=== PATIENT | male | born 1955 | race Caucasian/White ===

== ENCOUNTER 2021-07-18 20:04 | Inpatient (IN) | payer BC ==
[2021-07-18] MEDS ORDERED: Sodium Chloride 0.9% 10 ML Syringe FLUSH PRN (20:23)
--- NOTE | 2021-07-18 20:28 | EDM.PDOC ---
ED HPI GENERAL MEDICAL PROBLEM - General Chief Complaint: Respiratory Problem Stated Complaint: SOB Time Seen by Provider: 07/18/21 20:11 Source of Information: Reports: Patient, RN Notes Reviewed History Limitations: Reports: No Limitations - History of Present Illness INITIAL COMMENTS - FREE TEXT/NARRATIVE: Patient is a 66-year-old male who presents to the ER for evaluation of his shortness of breath and ongoing COVID-19 symptoms. Patient is about day 10 for being symptomatic. He was diagnosed on July 15, 2021 at our clinic, sent home with dexamethasone and an inhaler. Patient does have blood pressure issues, is diabetic, and obese as well. He became concerned today because he had increasing shortness of breath, so he comes to the ER for evaluation. The patient's O2 sats at time of triage were 75% on room air, the patient was rapidly placed on oxygen, and he is now on 6 L via nasal cannula and O2 sats have improved to roughly 87%. Patient's had some mild elevated temperatures, but no major fevers. States he feels somewhat breathless, and was just feeling somewhat fatigued. Patient was not vaccinated for COVID-19. - Related Data Allergies Allergy/AdvReac Type Severity Reaction Status Date / Time levofloxacin [From Levaquin] Allergy Other Verified 07/18/21 20:15 antibiotic unknown name Allergy Anxiety Uncoded 07/18/21 20:15 Home Meds: Home Meds Amoxicillin/Clavulanate K [Augmentin 500 MG] 1 tab PO Q12H #16 tab 01/25/15 [Rx] Levothyroxine 125 mcg PO ACBREAKFAST 01/25/15 [History] Nebivolol [Bystolic] 2.5 mg PO DAILY 01/25/15 [History] Omeprazole [Prilosec] 40 mg PO 01/25/15 [History] Pioglitazone HCl [Actos] 15 mg PO 01/25/15 [History] Valsartan 160 mg PO 01/25/15 [History] atorvaSTATin [Lipitor] 20 mg PO ONETIME 01/25/15 [History] Past Medical History Cardiovascular History: Reports: High Cholesterol, Hypertension Respiratory History: Reports: Sleep Apnea Endocrine/Metabolic History: Reports: Diabetes, Type II - Infectious Disease History Infectious Disease History: Reports: Novel Coronavirus - Past Surgical History Musculoskeletal Surgical History: Reports: Arthroscopic Knee, Shoulder Surgery Social & Family History - Tobacco Use Tobacco Use Status *Q: Never Tobacco User ED ROS GENERAL - Review of Systems Review Of Systems: Comprehensive ROS is negative, except as noted in HPI. ED EXAM, GENERAL - Physical Exam Exam: See Below Exam Limited By: No Limitations General Appearance: Alert, WD/WN, No Apparent Distress Respiratory/Chest: No Respiratory Distress, No Accessory Muscle Use, Chest Non- Tender, Respiratory Distress (very slight distress noted), Decreased Breath Sounds (diffuse bilaterally) Cardiovascular: Normal Peripheral Pulses, Regular Rate, Rhythm, No Edema GI/Abdominal: Normal Bowel Sounds, Soft, Non-Tender, No Distention, No Mass Extremities: Normal Inspection, Normal Capillary Refill Neurological: Alert, Oriented, Normal Cognition, No Motor/Sensory Deficits Psychiatric: Normal Affect, Normal Mood Skin Exam: Warm, Dry, Intact, Normal Color, No Rash #1 Interpretation EKG Date: 07/18/21 Time: 20:28 Rhythm: NSR Rate (Beats/Min): [address]: Normal P-Wave: Present QRS: Normal ST-T: Normal QT: Normal EKG Interpretation Comments: No obvious ischemia or acute ST changes noted, reviewed by myself and Dr. Aguiar. Course - Vital Signs Last Recorded V/S: Last Vital Signs Temp 99.0 F 07/18/21 20:11 Pulse 95 07/18/21 20:11 Resp 17 07/18/21 20:11 BP 163/81 H 07/18/21 20:11 Pulse Ox 85 L 07/18/21 20:35 - Orders/Labs/Meds Orders: Active Orders 24 hr Category Date Time Status Oxygen Therapy, ED [RC] ASDIRECTED Care 07/18/21 20:39 Ordered Peripheral IV Care [RC] . DIRECTED Care 07/18/21 20:23 Ordered Chest 1V Frontal [CR] Stat Exams 07/18/21 20:20 Ordered BLOOD CULTURE [MREF] Stat Lab 07/18/21 21:35 Ordered BLOOD CULTURE [MREF] Stat Lab 07/18/21 21:35 Ordered LACTIC ACID [CHEM] Stat Lab 07/18/21 21:35 Ordered Baricitinib [Olumiant] Med 07/18/21 21:45 Ordered 4 mg PO DAILY Sodium Chloride 0.9% [Saline Flush] Med 07/18/21 20:23 Ordered 10 ml FLUSH ASDIRECTED PRN cefTRIAXone [Rocephin] 2 gm Med 07/18/21 21:40 Ordered Sodium Chloride 0.9% [Normal Saline] 100 ml IV ONETIME Blood Culture x2 Reflex Set [OM.PC] Stat Oth 07/18/21 21:35 Ordered Peripheral IV Insertion Adult [OM.PC] Routine Oth 07/18/21 20:23 Ordered Medication Orders Ceftriaxone Sodium 2 gm/ (Sodium Chloride) 100 mls @ 200 mls/hr IV ONETIME ONE Stop: 07/18/21 22:09 Sodium Chloride (Sodium Chloride 0.9% 10 Ml Syringe) 10 ml FLUSH ASDIRECTED PRN PRN Reason: Keep Vein Open Last Admin: 07/18/21 20:36 Dose: 10 ml Documented by: MISSY Labs: Laboratory Tests 07/18/21 07/18/21 07/18/21 Range/Units 20:35 20:38 20:38 WBC 11.31 H (4.23-9.07) K/mm3 RBC 4.95 (4.63-6.08) M/mm3 Hgb 15.3 (13.7-17.5) gm/dl Hct 46.2 (40.1-51.0) % MCV 93.3 H (79.0-92.2) fl MCH 30.9 (25.7-32.2) pg MCHC 33.1 (32.2-35.5) g/dl RDW Std Deviation 47.3 H (35.1-43.9) fL Plt Count 225 (163-337) K/mm3 MPV 9.2 L (9.4-12.3) fl Neut % (Auto) 85.6 H (34.0-67.9) % Lymph % (Auto) 5.5 L (21.8-53.1) % Cloud % (Auto) 7.7 (5.3-12.2) % Eos % (Auto) 0 L (0.8-7.0) Baso % (Auto) 0.1 (0.1-1.2) % Neut # (Auto) 9.69 H (1.78-5.38) K/mm3 Lymph # (Auto) 0.62 L (1.32-3.57) K/mm3 Cloud # (Auto) 0.87 H (0.30-0.82) K/mm3 Eos # (Auto) 0.00 L (0.04-0.54) K/mm3 Baso # (Auto) 0.01 (0.01-0.08) K/mm3 PT (9.7-12.0) SECONDS INR APTT (21.7-31.4) SECONDS D-Dimer, Quantitative (0.19-0.50) mg/L Puncture Site Lt radial ABG pH 7.39 (7.35-7.45) ABG pCO2 38.3 (35.0-45.0) mmHg ABG pO2 43.0 L (80.0-100.0) mmHg ABG HCO3 22.9 (22.0-26.0) meq/L ABG O2 Saturation 72.6 L (96.0-97.0) % ABG Base Excess -1.2 (-2-2.0) Horace Test Positive O2 Delivery Device Nasal cannula Oxygen Flow Rate 6.0 Sodium (136-145) mEq/L Potassium (3.5-5.1) mEq/L Chloride (98-107) mEq/L Carbon Dioxide (21-32) mEq/L Anion Gap (5-15) BUN (7-18) mg/dL Creatinine (0.7-1.3) mg/dL Est Cr Clr Drug Dosing Estimated GFR (MDRD) (>60) mL/min BUN/Creatinine Ratio (14-18) Glucose (70-99) mg/dL Calcium (8.5-10.1) mg/dL Magnesium (1.8-2.4) mg/dL Total Bilirubin (0.2-1.0) mg/dL AST (15-37) U/L ALT (16-63) U/L Alkaline Phosphatase (46-116) U/L Troponin I (0.00-0.056) ng/mL C-Reactive Protein 5.7 H* (<1.0) mg/dL NT-Pro-B Natriuret Pep (0-125) pg/mL Total Protein (6.4-8.2) g/dl Albumin (3.4-5.0) g/dl Globulin gm/dL Albumin/Globulin Ratio (1-2) 07/18/21 07/18/21 07/18/21 Range/Units 20:38 20:38 20:38 WBC (4.23-9.07) K/mm3 RBC (4.63-6.08) M/mm3 Hgb (13.7-17.5) gm/dl Hct (40.1-51.0) % MCV (79.0-92.2) fl MCH (25.7-32.2) pg MCHC (32.2-35.5) g/dl RDW Std Deviation (35.1-43.9) fL Plt Count (163-337) K/mm3 MPV (9.4-12.3) fl Neut % (Auto) (34.0-67.9) % Lymph % (Auto) (21.8-53.1) % Cloud % (Auto) (5.3-12.2) % Eos % (Auto) (0.8-7.0) Baso % (Auto) (0.1-1.2) % Neut # (Auto) (1.78-5.38) K/mm3 Lymph # (Auto) (1.32-3.57) K/mm3 Cloud # (Auto) (0.30-0.82) K/mm3 Eos # (Auto) (0.04-0.54) K/mm3 Baso # (Auto) (0.01-0.08) K/mm3 PT 10.2 (9.7-12.0) SECONDS INR 0.95 APTT 29.2 (21.7-31.4) SECONDS D-Dimer, Quantitative 0.32 (0.19-0.50) mg/L Puncture Site ABG pH (7.35-7.45) ABG pCO2 (35.0-45.0) mmHg ABG pO2 (80.0-100.0) mmHg ABG HCO3 (22.0-26.0) meq/L ABG O2 Saturation (96.0-97.0) % ABG Base Excess (-2-2.0) Horace Test O2 Delivery Device Oxygen Flow Rate Sodium 136 (136-145) mEq/L Potassium 4.5 (3.5-5.1) mEq/L Chloride 102 (98-107) mEq/L Carbon Dioxide 25 (21-32) mEq/L Anion Gap 13.5 (5-15) BUN 25 H (7-18) mg/dL Creatinine 1.7 H (0.7-1.3) mg/dL Est Cr Clr Drug Dosing TNP Estimated GFR (MDRD) 41 (>60) mL/min BUN/Creatinine Ratio 14.7 (14-18) Glucose 177 H (70-99) mg/dL Calcium 8.4 L (8.5-10.1) mg/dL Magnesium 2.2 (1.8-2.4) mg/dL Total Bilirubin 0.5 (0.2-1.0) mg/dL AST 116 H (15-37) U/L ALT 170 H (16-63) U/L Alkaline Phosphatase 94 (46-116) U/L Troponin I < 0.017 (0.00-0.056) ng/mL C-Reactive Protein (<1.0) mg/dL NT-Pro-B Natriuret Pep 130 H (0-125) pg/mL Total Protein 7.3 (6.4-8.2) g/dl Albumin 3.2 L (3.4-5.0) g/dl Globulin 4.1 gm/dL Albumin/Globulin Ratio 0.8 L (1-2) Meds: Medications Generic Name Dose Route Start Last Admin Trade Name Freq PRN Reason Stop Dose Admin Ceftriaxone Sodium 2 gm/ 100 mls @ 200 mls/hr 07/18/21 21:40 Sodium Chloride IV 07/18/21 22:09 ONETIME ONE Sodium Chloride 10 ml 07/18/21 20:23 07/18/21 20:36 Sodium Chloride 0.9% 10 Ml Syringe FLUSH 10 ml ASDIRECTED PRN Administration Keep Vein Open Discontinued Medications Generic Name Dose Route Start Last Admin Trade Name Freq PRN Reason Stop Dose Admin Dexamethasone 6 mg 07/18/21 21:40 Dexamethasone 10 Mg/Ml Sdv IVPUSH 07/18/21 21:41 ONETIME ONE - Re-Assessments/Exams Free Text/Narrative Re-Assessment/Exam: 07/18/21 20:33 Patient presents to the ER for evaluation of his shortness of breath, and jackie oing COVID-19 symptoms. Patient was hypoxic at the time of triage, and was around 75% on room air. He was swiftly placed on oxygen, and was titrated up to 6 L, and we are giving O2 sats of 87%. Patient will likely either need high flow oxygen or BiPAP shortly. I was made aware that we have 2 beds for admission into the hospital at our facility. This gentleman will likely need hospitalization. We will go ahead and get labs, and a chest x-ray for further evaluation, and then get him admitted. 07/18/21 20:38 RT was by, and was made aware of the situation, and she will place the patient on high flow nasal cannula at this time. 07/18/21 20:53 The patient's blood gas did come back, the patient is ventilating at this time appropriately, pH is 7.39, CO2 at 38, PO2 is fairly low at 43. Which states that he is hypoxic but not in respiratory failure at this time. 07/18/21 21:34 The patient's CBC did come back, mildly elevated at 11.3, with 85% neutrophils on the auto differential. Metabolic panel was essentially unremarkable, troponin was undetectably low, CRP elevated at 5.7, D-dimer in normal limits at 0.32. Due to needing hospitalization, I think we will go ahead and get blood cultures due to the elevated white count, which would be suspect overlying pneumonia versus ongoing Covid viral pneumonia as well. Patient's chest x-ray did show pretty severe diffuse patchy infiltrates consistent with severe Covid pneumonia. Official radiology read is still pending. 07/18/21 21:41 I did call and discussed the case with Dr. Abdi, and he does accept the patient for admission, he states to place the patient on IV dexamethasone, give him Rocephin, and place him on baricitinib for ongoing management. As the patient will likely necessitate high flow oxygen when he gets to the floor. Departure - Departure Time of Disposition: 21:42 Disposition: Admitted As Inpatient 67 Condition: Serious Clinical Impression: COVID-19, Hypoxia - Discharge Information *PRESCRIPTION DRUG MONITORING PROGRAM REVIEWED*: No *COPY OF PRESCRIPTION DRUG MONITORING REPORT IN PATIENT JUDY: No Referrals: Chad Ordonez MD [Primary Care Provider] - Forms: ED Department Discharge Sepsis Event Note (ED) - Focused Exam Vital Signs: Vital Signs Temp Pulse Resp BP Pulse Ox Pulse Ox 07/18/21 20:35 85 L 07/18/21 20:11 99.0 F 95 17 163/81 H 75 L - My Orders Last 24 Hours: My Active Orders 07/18/21 20:20 Chest 1V Frontal [CR] Stat 09/10/21 20:23 Peripheral IV Care [RC] . DIRECTED Sodium Chloride 0.9% [Saline Flush] 10 ml FLUSH ASDIRECTED PRN Peripheral IV Insertion Adult [OM.PC] Routine 07/18/21 20:39 Oxygen Therapy, ED [RC] ASDIRECTED 07/18/21 21:35 BLOOD CULTURE [MREF] Stat BLOOD CULTURE [MREF] Stat LACTIC ACID [CHEM] Stat Blood Culture x2 Reflex Set [OM.PC] Stat 07/18/21 21:40 cefTRIAXone [Rocephin] 2 gm Sodium Chloride 0.9% [Normal Saline] 100 ml IV ONETIME 07/18/21 21:45 Baricitinib [Olumiant] 4 mg PO DAILY - Assessment/Plan Last 24 Hours: My Active Orders 07/18/21 20:20 Chest 1V Frontal [CR] Stat 07/18/21 20:23 Peripheral IV Care [RC] . DIRECTED Sodium Chloride 0.9% [Saline Flush] 10 ml FLUSH ASDIRECTED PRN Peripheral IV Insertion Adult [OM.PC] Routine 07/18/21 20:39 Oxygen Therapy, ED [RC] ASDIRECTED 07/18/21 21:35 BLOOD CULTURE [MREF] Stat BLOOD CULTURE [MREF] Stat LACTIC ACID [CHEM] Stat Blood Culture x2 Reflex Set [OM.PC] Stat 07/18/21 21:40 cefTRIAXone [Rocephin] 2 gm Sodium Chloride 0.9% [Normal Saline] 100 ml IV ONETIME 07/18/21 21:45 Baricitinib [Olumiant] 4 mg PO DAILY
[2021-07-18] MEDS ORDERED: cefTRIAXone 2 GM in Sodium Chloride 0.9% 100 ML IV ONE (21:40)
[2021-07-18] MEDS ORDERED: Dexamethasone 10 MG/ML SDV IVPUSH ONE (21:40)
--- NOTE | 2021-07-19 08:29 | PCM.HP.2 ---
H&P History of Present Illness - General Date of Service: 07/19/21 Admit Problem/Dx: Admission Diagnosis/Problem Admission Diagnosis/Problem Hypoxia - History of Present Illness Initial Comments - Free Text/Narative: 66-year-old diabetic male presents to the emergency room last night with increasing shortness of breath. He was seen 4 days ago at the clinic and given steroids and an inhaler. Patient progressively worsened and presented today. He does complain of moderate nonproductive cough. Low-grade fevers and shortness of breath. When he arrived at the emergency department his oxygen saturations were 75%. They placed him on 6 L nasal cannula and his saturation only went up to 87%. Patient was then placed on high flow nasal cannula, given dexamethasone, and baricitinib. Initial lab work showed a WBC of 11.3 with a C- reactive protein of 5.7. Estimated GFR is 41 with a creatinine of 1.7 and BUN of 25. proBNP 130. AST elevated 116 ALT 170, total bilirubin normal 0.5, albumin low 3.2. Initial ABG on 6 L showed pure hypoxemic respiratory failure with PO2 of 43. - Related Data Allergies/Adverse Reactions: Allergies Allergy/AdvReac Type Severity Reaction Status Date / Time levofloxacin [From Levaquin] Allergy Other Verified 07/18/21 20:15 antibiotic unknown name Allergy Anxiety Uncoded 07/18/21 23:46 Home Medications: Home Meds Omeprazole [Prilosec] 40 mg PO DAILY 01/25/15 [History] Albuterol Sulfate [Albuterol Sulfate HFA] 1 - 2 puff INH Q4HR PRN 07/19/21 [History] Benzonatate [Tessalon Perle] 100 - 200 mg PO Q8H PRN 07/19/21 [History] Canagliflozin [Invokana] 300 mg PO DAILY 07/19/21 [History] Levothyroxine Sodium [Levo-T] 125 mcg PO DAILY 07/19/21 [History] Rosuvastatin Calcium 20 mg PO DAILY 07/19/21 [History] Telmisartan 40 mg PO DAILY 07/19/21 [History] Travoprost 1 drop EYERT DAILY 07/19/21 [History] allopurinoL [Zyloprim] 50 mg PO DAILY 07/19/21 [History] dilTIAZem HCL [Cartia Xt] 120 mg PO DAILY 07/19/21 [History] methylPREDNISolone [Medrol Dose Pack] 4 mg PO ASDIRECTED 07/19/21 [History] Past Medical History Other HEENT History: Glasses Cardiovascular History: Reports: High Cholesterol, Hypertension Respiratory History: Reports: Sleep Apnea Other Respiratory History: CPAP at home Endocrine/Metabolic History: Reports: Diabetes, Type II, Hypothyroidism - Infectious Disease History Infectious Disease History: Reports: Novel Coronavirus - Past Surgical History Musculoskeletal Surgical History: Reports: Arthroscopic Knee, Shoulder Surgery Social & Family History - Family History Cardiac: Reports: Heart Failure Neurological: Reports: CVA - Tobacco Use Tobacco Use Status *Q: Never Tobacco User - Caffeine Use Caffeine Use: Reports: None - Recreational Drug Use Recreational Drug Use: No H&P Review of Systems - Review of Systems: Review Of Systems: Comprehensive ROS is negative, except as noted in HPI. Exam - Exam Exam: See Below - Vital Signs Vital Signs: Last Vital Signs Temp 98.4 F 07/19/21 02:57 Pulse 80 07/19/21 02:57 Resp 20 07/19/21 03:00 BP 137/79 07/19/21 02:57 Pulse Ox 91 L 07/19/21 06:04 Weight: 243 lb 9.6 oz - Exam Quality Assessment: Supplemental Oxygen (High flow nasal cannula, 50 L/min at 60%) General: Alert, Oriented, 4 HEENT: Conjunctiva Clear, EOMI, Hearing Intact, Mucosa Moist & [place] Neck: Supple, Trachea Midline, 2 Lungs: Crackles (Bibasilar). No: Normal Respiratory Effort (Increased respiratory rate and effort) Cardiovascular: Regular Rate, Regular Rhythm GI/Abdominal Exam: Normal Bowel Sounds, Soft, Non-Tender, No Organomegaly, No Distention, No Abnormal Bruit Back Exam: Normal Inspection, Full Range of Motion, NT Extremities: Normal Inspection, Normal Range of Motion, Non-Tender, No Pedal Edema, Normal Capillary Refill Skin: Warm, Dry, Intact Neuro Extensive - Mental Status: Alert, Oriented x3, Normal Mood/Affect, Normal Cognition, Memory Intact Neuro Extensive - Motor, Sensory, Reflexes: CN II-XII Intact Psychiatric: Alert, Normal Affect, Normal Mood - Patient Data Lab Results Last 24 hrs: Laboratory Results - last 24 hr 07/18/21 07/18/21 07/18/21 Range/Units 20:35 20:38 20:38 WBC 11.31 H (4.23-9.07) K/mm3 RBC 4.95 (4.63-6.08) M/mm3 Hgb 15.3 (13.7-17.5) gm/dl Hct 46.2 (40.1-51.0) % MCV 93.3 H (79.0-92.2) fl MCH 30.9 (25.7-32.2) pg MCHC 33.1 (32.2-35.5) g/dl RDW Std Deviation 47.3 H (35.1-43.9) fL Plt Count 225 (163-337) K/mm3 MPV 9.2 L (9.4-12.3) fl Neut % (Auto) 85.6 H (34.0-67.9) % Lymph % (Auto) 5.5 L (21.8-53.1) % [place] % (Auto) 7.7 (5.3-12.2) % Eos % (Auto) 0 L (0.8-7.0) Baso % (Auto) 0.1 (0.1-1.2) % Neut # (Auto) 9.69 H (1.78-5.38) K/mm3 Lymph # (Auto) 0.62 L (1.32-3.57) K/mm3 [place] # (Auto) 0.87 H (0.30-0.82) K/mm3 Eos # (Auto) 0.00 L (0.04-0.54) K/mm3 Baso # (Auto) 0.01 (0.01-0.08) K/mm3 PT (9.7-12.0) SECONDS INR APTT (21.7-31.4) SECONDS D-Dimer, Quantitative (0.19-0.50) mg/L Puncture Site Lt radial ABG pH 7.39 (7.35-7.45) ABG pCO2 38.3 (35.0-45.0) mmHg ABG pO2 43.0 L (80.0-100.0) mmHg ABG HCO3 22.9 (22.0-26.0) meq/L ABG O2 Saturation 72.6 L (96.0-97.0) % ABG Base Excess -1.2 (-2-2.0) Horace Test Positive O2 Delivery Device Nasal cannula Oxygen Flow Rate 6.0 Sodium (136-145) mEq/L Potassium (3.5-5.1) mEq/L Chloride (98-107) mEq/L Carbon Dioxide (21-32) mEq/L Anion Gap (5-15) BUN (7-18) mg/dL Creatinine (0.7-1.3) mg/dL Est Cr Clr Drug Dosing Estimated GFR (MDRD) (>60) mL/min BUN/Creatinine Ratio (14-18) Glucose (70-99) mg/dL Lactic Acid (0.4-2.0) mmol/L Calcium (8.5-10.1) mg/dL Magnesium (1.8-2.4) mg/dL Total Bilirubin (0.2-1.0) mg/dL AST (15-37) U/L ALT (16-63) U/L Alkaline Phosphatase (46-116) U/L Troponin I (0.00-0.056) ng/mL C-Reactive Protein 5.7 H* (<1.0) mg/dL NT-Pro-B Natriuret Pep (0-125) pg/mL Total Protein (6.4-8.2) g/dl Albumin (3.4-5.0) g/dl Globulin gm/dL Albumin/Globulin Ratio (1-2) 07/18/21 07/18/21 07/18/21 Range/Units 20:38 20:38 20:38 WBC (4.23-9.07) K/mm3 RBC (4.63-6.08) M/mm3 Hgb (13.7-17.5) gm/dl Hct (40.1-51.0) % MCV (79.0-92.2) fl MCH (25.7-32.2) pg MCHC (32.2-35.5) g/dl RDW Std Deviation (35.1-43.9) fL Plt Count (163-337) K/mm3 MPV (9.4-12.3) fl Neut % (Auto) (34.0-67.9) % Lymph % (Auto) (21.8-53.1) % [place] % (Auto) (5.3-12.2) % Eos % (Auto) (0.8-7.0) Baso % (Auto) (0.1-1.2) % Neut # (Auto) (1.78-5.38) K/mm3 Lymph # (Auto) (1.32-3.57) K/mm3 [place] # (Auto) (0.30-0.82) K/mm3 Eos # (Auto) (0.04-0.54) K/mm3 Baso # (Auto) (0.01-0.08) K/mm3 PT 10.2 (9.7-12.0) SECONDS INR 0.95 APTT 29.2 (21.7-31.4) SECONDS D-Dimer, Quantitative 0.32 (0.19-0.50) mg/L Puncture Site ABG pH (7.35-7.45) ABG pCO2 (35.0-45.0) mmHg ABG pO2 (80.0-100.0) mmHg ABG HCO3 (22.0-26.0) meq/L ABG O2 Saturation (96.0-97.0) % ABG Base Excess (-2-2.0) Horace Test O2 Delivery Device Oxygen Flow Rate Sodium 136 (136-145) mEq/L Potassium 4.5 (3.5-5.1) mEq/L Chloride 102 (98-107) mEq/L Carbon Dioxide 25 (21-32) mEq/L Anion Gap 13.5 (5-15) BUN 25 H (7-18) mg/dL Creatinine 1.7 H (0.7-1.3) mg/dL Est Cr Clr Drug Dosing TNP Estimated GFR (MDRD) 41 (>60) mL/min BUN/Creatinine Ratio 14.7 (14-18) Glucose 177 H (70-99) mg/dL Lactic Acid (0.4-2.0) mmol/L Calcium 8.4 L (8.5-10.1) mg/dL Magnesium 2.2 (1.8-2.4) mg/dL Total Bilirubin 0.5 (0.2-1.0) mg/dL AST 116 H (15-37) U/L ALT 170 H (16-63) U/L Alkaline Phosphatase 94 (46-116) U/L Troponin I < 0.017 (0.00-0.056) ng/mL C-Reactive Protein (<1.0) mg/dL NT-Pro-B Natriuret Pep 130 H (0-125) pg/mL Total Protein 7.3 (6.4-8.2) g/dl Albumin 3.2 L (3.4-5.0) g/dl Globulin 4.1 gm/dL Albumin/Globulin Ratio 0.8 L (1-2) 07/18/21 Range/Units 20:38 WBC (4.23-9.07) K/mm3 RBC (4.63-6.08) M/mm3 Hgb (13.7-17.5) gm/dl Hct (40.1-51.0) % MCV (79.0-92.2) fl MCH (25.7-32.2) pg MCHC (32.2-35.5) g/dl RDW Std Deviation (35.1-43.9) fL Plt Count (163-337) K/mm3 MPV (9.4-12.3) fl Neut % (Auto) (34.0-67.9) % Lymph % (Auto) (21.8-53.1) % [place] % (Auto) (5.3-12.2) % Eos % (Auto) (0.8-7.0) Baso % (Auto) (0.1-1.2) % Neut # (Auto) (1.78-5.38) K/mm3 Lymph # (Auto) (1.32-3.57) K/mm3 [place] # (Auto) (0.30-0.82) K/mm3 Eos # (Auto) (0.04-0.54) K/mm3 Baso # (Auto) (0.01-0.08) K/mm3 PT (9.7-12.0) SECONDS INR APTT (21.7-31.4) SECONDS D-Dimer, Quantitative (0.19-0.50) mg/L Puncture Site ABG pH (7.35-7.45) ABG pCO2 (35.0-45.0) mmHg ABG pO2 (80.0-100.0) mmHg ABG HCO3 (22.0-26.0) meq/L ABG O2 Saturation (96.0-97.0) % ABG Base Excess (-2-2.0) Horace Test O2 Delivery Device Oxygen Flow Rate Sodium (136-145) mEq/L Potassium (3.5-5.1) mEq/L Chloride (98-107) mEq/L Carbon Dioxide (21-32) mEq/L Anion Gap (5-15) BUN (7-18) mg/dL Creatinine (0.7-1.3) mg/dL Est Cr Clr Drug Dosing Estimated GFR (MDRD) (>60) mL/min BUN/Creatinine Ratio (14-18) Glucose (70-99) mg/dL Lactic Acid 1.7 (0.4-2.0) mmol/L Calcium (8.5-10.1) mg/dL Magnesium (1.8-2.4) mg/dL Total Bilirubin (0.2-1.0) mg/dL AST (15-37) U/L ALT (16-63) U/L Alkaline Phosphatase (46-116) U/L Troponin I (0.00-0.056) ng/mL C-Reactive Protein (<1.0) mg/dL NT-Pro-B Natriuret Pep (0-125) pg/mL Total Protein (6.4-8.2) g/dl Albumin (3.4-5.0) g/dl Globulin gm/dL Albumin/Globulin Ratio (1-2) Result Diagrams: 07/18/21 20:38 07/18/21 20:38 Imaging Impressions Last 24 hrs: Chest x-ray 1. Diffuse increased parenchymal density on both sides of the chest. Findings most likely represent prominent Covid pneumonia. 2. Other findings which are believed to be incidental Sepsis Event Note - Evaluation Sepsis Screening Result: Possible Sepsis Risk - Focused Exam Vital Signs: Vital Signs Temp Pulse Resp BP Pulse Ox Pulse Ox Pulse Ox 07/19/21 06:04 91 L 07/19/21 03:41 89 L 07/19/21 03:22 90 L 07/19/21 03:00 20 07/19/21 02:57 98.4 F 80 21 H 137/79 07/19/21 02:00 25 H 07/19/21 01:00 26 H 07/18/21 23:27 99.0 F 78 18 113/82 07/18/21 23:00 91 L 07/18/21 22:58 92 L 07/18/21 20:35 85 L - Problem List (1) Pneumonia due to COVID-19 virus SNOMED Code(s): 395603086219109743 ICD Code: U07.1 - COVID-19; J12.82 - PNEUMONIA DUE TO CORONAVIRUS DISEASE 2018 Status: Acute Current Visit: Yes (2) Diabetes type 2, controlled SNOMED Code(s): 09999155, 232320451 ICD Code: E11.9 - TYPE 2 DIABETES MELLITUS WITHOUT COMPLICATIONS Status: Acute Current Visit: Yes (3) HTN (hypertension) SNOMED Code(s): 53319169 ICD Code: I10 - ESSENTIAL (PRIMARY) HYPERTENSION Status: Acute Current Visit: Yes Problem List Initiated/Reviewed/Updated: Yes Orders Last 24hrs: Active Orders 24 hr Category Date Time Status Admission Status [Patient Status] [ADT] Routine ADT 07/18/21 22:05 Active Chest Physiotherapy [RT Chest Physiotherapy] [RC] Care 07/18/21 23:07 Active ASDIRECTED Oxygen Therapy [RC] ASDIRECTED Care 07/18/21 23:07 Active RT Incentive Spirometry [RC] ASDIRECTED Care 07/18/21 23:07 Active ADA Diabetic [[place] [employer] Diet] [DIET Diet 07/19/21 Breakfast Active ] Chest 1V Frontal [CR] Stat Exams 07/18/21 20:20 Taken BLOOD CULTURE [MREF] Stat Lab 07/18/21 22:00 Received BLOOD CULTURE [MREF] Stat Lab 07/18/21 22:10 Received Baricitinib [Olumiant] Med 07/18/21 21:45 Active 4 mg PO DAILY Sodium Chloride 0.9% [Saline Flush] Med 07/18/21 20:23 Active 10 ml FLUSH ASDIRECTED PRN Blood Culture x2 Reflex Set [OM.PC] Stat Oth 07/18/21 21:35 Ordered Peripheral IV Insertion Adult [OM.PC] Routine Oth 07/18/21 20:23 Ordered Pulse Oximetry Continuous Monitoring [OM.PC] Routine Oth 07/18/21 23:10 Active Resuscitation Status Routine Resus Stat 07/18/21 23:43 Ordered Medication Orders Sodium Chloride (Sodium Chloride 0.9% 10 Ml Syringe) 10 ml FLUSH ASDIRECTED PRN PRN Reason: Keep Vein Open Last Admin: 07/18/21 20:36 Dose: 10 ml Documented by: MISSY Assessment/Plan Comment:: 66-year-old diabetic with COVID-19 presented to the emergency room with worsening shortness of breath. Pneumonia due to COVID-19 -Hypoxemia requiring high flow nasal cannula -White count 11.3, CRP 5.7, BNP 130, albumin 3.2, D-dimer 0.32 -Given Rocephin, dexamethasone, and baricitinib in the emergency department -Continue dexamethasone and baricitinib -Stop Rocephin, no signs of bacterial infection at this time. Acute kidney injury on chronic kidney injury. -Review of old records suggest baseline creatinine of 1.4 and estimated GFR of 51. -Initial GFR 41, creatinine 1.7 -Renally adjust medications Type 2 diabetes with diabetic nephropathy -Get hemoglobin A1c -Continue home meds -Fingerstick blood sugar before every meal and at bedtime -Sliding scale insulin -Anticipate increasing blood sugars secondary to steroids Hypertension, gout, hypothyroid, hyperlipidemia -Continue home meds -Get TSH VTE prophylaxis with Lovenox CODE STATUS: Full code - Mortality Measure Prognosis:: Good
[2021-07-19 09:12] LABS: HEMOGLOBIN A1C 5.8 %
[2021-07-19] MEDS: Latanoprost 0.005% Ophth Soln 2.5 ML Bottle EYERT SCH (09:40)
[2021-07-19] MEDS: Rosuvastatin 10 MG Tab PO SCH (09:40)
[2021-07-19] MEDS: Diltiazem 120 MG Cap.CD PO SCH (09:41)
[2021-07-19] MEDS: Losartan 50 MG Tab PO SCH (09:41)
[2021-07-19] MEDS: Levothyroxine 125 MCG Tab PO SCH (09:42)
[2021-07-19] MEDS: Empagliflozin 25 MG Tab PO SCH (09:42)
[2021-07-19] MEDS: Dexamethasone 10 MG/ML SDV IVPUSH SCH (09:42)
[2021-07-19] MEDS: Allopurinol 100 MG Tab PO SCH (09:42)
[2021-07-19] MEDS: Pantoprazole 40 MG Tab.CR PO SCH (09:42)
--- NOTE | 2021-07-19 10:28 | CR ---
Chest: Portable view of the chest is obtained. Comparison: Prior chest x-ray of 03/21/21. Heart size and mediastinum are within normal limits. Diffuse increased density is seen on both sides of the chest. Scattered degenerative endplate spurring is noted within the spine. No definite acute osseous abnormality is seen. Large calcified cystic area is seen within the left upper abdomen which is located within the spleen and appears stable from prior exam. Impression: 1. Diffuse increased parenchymal density on both sides of the chest. Findings most likely represent prominent COVID pneumonia. 2. Other findings which are believed to be incidental. Diagnostic code #3
[2021-07-19] MEDS: Acetaminophen 325 MG Tab PO PRN (10:43)
[2021-07-19] MEDS: Insulin Lispro 100 UNIT/ML 10 ML Vial SUBCUT SCH ×3 (11:32→21:45)
[2021-07-19] MEDS: Enoxaparin 40 MG/0.4 ML Syringe SUBCUT SCH (16:08)
[2021-07-19] MEDS ORDERED: oxyCODONE 5 MG Tab PO PRN (20:10)
[2021-07-20] MEDS: Albuterol 6.7 GM Inhaler INH PRN ×3 (05:23→17:39)
[2021-07-20] MEDS: Levothyroxine 125 MCG Tab PO SCH (05:49)
[2021-07-20] MEDS: Pantoprazole 40 MG Tab.CR PO SCH (05:49)
[2021-07-20] MEDS: Insulin Lispro 100 UNIT/ML 10 ML Vial SUBCUT SCH ×4 (06:03→21:53)
[2021-07-20] MEDS ORDERED: REMDESIVIR 100 MG in Sodium Chloride 0.9% 100 ML IV SCH (08:30)
[2021-07-20] MEDS: Diltiazem 120 MG Cap.CD PO SCH (08:38)
[2021-07-20] MEDS: Losartan 50 MG Tab PO SCH (08:39)
[2021-07-20] MEDS: Allopurinol 100 MG Tab PO SCH (08:40)
[2021-07-20] MEDS: Benzonatate 100 MG Cap PO PRN ×2 (08:41→20:27)
[2021-07-20] MEDS: Rosuvastatin 10 MG Tab PO SCH (08:42)
[2021-07-20] MEDS: Latanoprost 0.005% Ophth Soln 2.5 ML Bottle EYERT SCH (08:44)
[2021-07-20] MEDS: Empagliflozin 25 MG Tab PO SCH (08:45)
[2021-07-20] MEDS: Dexamethasone 10 MG/ML SDV IVPUSH SCH (08:45)
[2021-07-20] MEDS: Enoxaparin 40 MG/0.4 ML Syringe SUBCUT SCH (08:46)
[2021-07-20] MEDS ORDERED: REMDESIVIR 200 MG in Sodium Chloride 0.9% 250 ML IV ONE (09:39)
[2021-07-20] MEDS: Azithromycin 250 MG Tab PO SCH (10:27)
--- NOTE | 2021-07-20 15:24 | PCM.PN ---
- General Info Date of Service: 07/20/21 - Patient Data Vitals - Most Recent: Last Vital Signs Temp 97.3 F 07/20/21 11:30 Pulse 64 07/20/21 11:30 Resp 33 H 07/20/21 12:00 BP 113/86 07/20/21 11:30 Pulse Ox 89 L 07/20/21 11:30 Weight - Most Recent: 243 lb 9.6 oz I&O - Last 24 Hours: Intake & Output 07/20/21 07/20/21 07/20/21 06:59 14:59 22:59 Intake Total 700 Output Total 1250 Balance -550 Lab Results Last 24 Hours: Laboratory Results - last 24 hr 07/18/21 07/18/21 07/19/21 Range/Units 20:38 20:38 16:09 WBC (4.23-9.07) K/mm3 RBC (4.63-6.08) M/mm3 Hgb (13.7-17.5) gm/dl Hct (40.1-51.0) % MCV (79.0-92.2) fl MCH (25.7-32.2) pg MCHC (32.2-35.5) g/dl RDW Std Deviation (35.1-43.9) fL Plt Count (163-337) K/mm3 MPV (9.4-12.3) fl Neut % (Auto) (34.0-67.9) % Lymph % (Auto) (21.8-53.1) % [place] % (Auto) (5.3-12.2) % Eos % (Auto) (0.8-7.0) Baso % (Auto) (0.1-1.2) % Neut # (Auto) (1.78-5.38) K/mm3 Lymph # (Auto) (1.32-3.57) K/mm3 [place] # (Auto) (0.30-0.82) K/mm3 Eos # (Auto) (0.04-0.54) K/mm3 Baso # (Auto) (0.01-0.08) K/mm3 Manual Slide Review D-Dimer, Quantitative (0.19-0.50) mg/L Sodium (136-145) mEq/L Potassium (3.5-5.1) mEq/L Chloride (98-107) mEq/L Carbon Dioxide (21-32) mEq/L Anion Gap (5-15) BUN (7-18) mg/dL Creatinine (0.7-1.3) mg/dL Est Cr Clr Drug Dosing mL/min Estimated GFR (MDRD) (>60) mL/min BUN/Creatinine Ratio (14-18) Glucose (70-99) mg/dL POC Glucose 141 H (70-99) mg/dL Calcium (8.5-10.1) mg/dL Phosphorus (2.6-4.7) mg/dL Magnesium (1.8-2.4) mg/dL Total Bilirubin (0.2-1.0) mg/dL Direct Bilirubin (0.0-0.2) mg/dl AST (15-37) U/L ALT (16-63) U/L Alkaline Phosphatase (46-116) U/L C-Reactive Protein (<1.0) mg/dL Total Protein (6.4-8.2) g/dl Albumin (3.4-5.0) g/dl Globulin gm/dL Albumin/Globulin Ratio (1-2) Procalcitonin 0.26 H ng/mL TSH 3rd Generation 1.224 (0.358-3.74) uIU/mL 07/19/21 07/20/21 07/20/21 Range/Units 20:51 05:54 08:25 WBC 14.45 H (4.23-9.07) K/mm3 RBC 5.08 (4.63-6.08) M/mm3 Hgb 15.7 (13.7-17.5) gm/dl Hct 47.4 (40.1-51.0) % MCV 93.3 H (79.0-92.2) fl MCH 30.9 (25.7-32.2) pg MCHC 33.1 (32.2-35.5) g/dl RDW Std Deviation 45.7 H (35.1-43.9) fL Plt Count 254 (163-337) K/mm3 MPV 8.9 L (9.4-12.3) fl Neut % (Auto) 85.6 H (34.0-67.9) % Lymph % (Auto) 6.4 L (21.8-53.1) % [place] % (Auto) 6.4 (5.3-12.2) % Eos % (Auto) 0 L (0.8-7.0) Baso % (Auto) 0.3 (0.1-1.2) % Neut # (Auto) 12.37 H (1.78-5.38) K/mm3 Lymph # (Auto) 0.92 L (1.32-3.57) K/mm3 [place] # (Auto) 0.93 H (0.30-0.82) K/mm3 Eos # (Auto) 0.00 L (0.04-0.54) K/mm3 Baso # (Auto) 0.04 (0.01-0.08) K/mm3 Manual Slide Review Abnormal smear D-Dimer, Quantitative (0.19-0.50) mg/L Sodium (136-145) mEq/L Potassium (3.5-5.1) mEq/L Chloride (98-107) mEq/L Carbon Dioxide (21-32) mEq/L Anion Gap (5-15) BUN (7-18) mg/dL Creatinine (0.7-1.3) mg/dL Est Cr Clr Drug Dosing mL/min Estimated GFR (MDRD) (>60) mL/min BUN/Creatinine Ratio (14-18) Glucose (70-99) mg/dL POC Glucose 115 H 109 H (70-99) mg/dL Calcium (8.5-10.1) mg/dL Phosphorus (2.6-4.7) mg/dL Magnesium (1.8-2.4) mg/dL Total Bilirubin (0.2-1.0) mg/dL Direct Bilirubin (0.0-0.2) mg/dl AST (15-37) U/L ALT (16-63) U/L Alkaline Phosphatase (46-116) U/L C-Reactive Protein (<1.0) mg/dL Total Protein (6.4-8.2) g/dl Albumin (3.4-5.0) g/dl Globulin gm/dL Albumin/Globulin Ratio (1-2) Procalcitonin ng/mL TSH 3rd Generation (0.358-3.74) uIU/mL 07/20/21 07/20/21 07/20/21 Range/Units 08:25 08:25 08:25 WBC (4.23-9.07) K/mm3 RBC (4.63-6.08) M/mm3 Hgb (13.7-17.5) gm/dl Hct (40.1-51.0) % MCV (79.0-92.2) fl MCH (25.7-32.2) pg MCHC (32.2-35.5) g/dl RDW Std Deviation (35.1-43.9) fL Plt Count (163-337) K/mm3 MPV (9.4-12.3) fl Neut % (Auto) (34.0-67.9) % Lymph % (Auto) (21.8-53.1) % [place] % (Auto) (5.3-12.2) % Eos % (Auto) (0.8-7.0) Baso % (Auto) (0.1-1.2) % Neut # (Auto) (1.78-5.38) K/mm3 Lymph # (Auto) (1.32-3.57) K/mm3 [place] # (Auto) (0.30-0.82) K/mm3 Eos # (Auto) (0.04-0.54) K/mm3 Baso # (Auto) (0.01-0.08) K/mm3 Manual Slide Review D-Dimer, Quantitative 0.38 (0.19-0.50) mg/L Sodium 137 (136-145) mEq/L Potassium 4.5 (3.5-5.1) mEq/L Chloride 102 (98-107) mEq/L Carbon Dioxide 25 (21-32) mEq/L Anion Gap 14.5 (5-15) BUN 37 H (7-18) mg/dL Creatinine 1.6 H (0.7-1.3) mg/dL Est Cr Clr Drug Dosing 50.52 mL/min Estimated GFR (MDRD) 44 (>60) mL/min BUN/Creatinine Ratio 23.1 H (14-18) Glucose 109 H (70-99) mg/dL POC Glucose (70-99) mg/dL Calcium 8.9 (8.5-10.1) mg/dL Phosphorus 4.4 (2.6-4.7) mg/dL Magnesium 2.5 H (1.8-2.4) mg/dL Total Bilirubin 0.6 (0.2-1.0) mg/dL Direct Bilirubin 0.20 (0.0-0.2) mg/dl AST 70 H (15-37) U/L ALT 151 H (16-63) U/L Alkaline Phosphatase 86 (46-116) U/L C-Reactive Protein 7.0 H* (<1.0) mg/dL Total Protein 7.4 (6.4-8.2) g/dl Albumin 2.9 L (3.4-5.0) g/dl Globulin 4.5 gm/dL Albumin/Globulin Ratio 0.6 L (1-2) Procalcitonin ng/mL TSH 3rd Generation (0.358-3.74) uIU/mL 07/20/21 Range/Units 11:30 WBC (4.23-9.07) K/mm3 RBC (4.63-6.08) M/mm3 Hgb (13.7-17.5) gm/dl Hct (40.1-51.0) % MCV (79.0-92.2) fl MCH (25.7-32.2) pg MCHC (32.2-35.5) g/dl RDW Std Deviation (35.1-43.9) fL Plt Count (163-337) K/mm3 MPV (9.4-12.3) fl Neut % (Auto) (34.0-67.9) % Lymph % (Auto) (21.8-53.1) % [place] % (Auto) (5.3-12.2) % Eos % (Auto) (0.8-7.0) Baso % (Auto) (0.1-1.2) % Neut # (Auto) (1.78-5.38) K/mm3 Lymph # (Auto) (1.32-3.57) K/mm3 [place] # (Auto) (0.30-0.82) K/mm3 Eos # (Auto) (0.04-0.54) K/mm3 Baso # (Auto) (0.01-0.08) K/mm3 Manual Slide Review D-Dimer, Quantitative (0.19-0.50) mg/L Sodium (136-145) mEq/L Potassium (3.5-5.1) mEq/L Chloride (98-107) mEq/L Carbon Dioxide (21-32) mEq/L Anion Gap (5-15) BUN (7-18) mg/dL Creatinine (0.7-1.3) mg/dL Est Cr Clr Drug Dosing mL/min Estimated GFR (MDRD) (>60) mL/min BUN/Creatinine Ratio (14-18) Glucose (70-99) mg/dL POC Glucose 146 H (70-99) mg/dL Calcium (8.5-10.1) mg/dL Phosphorus (2.6-4.7) mg/dL Magnesium (1.8-2.4) mg/dL Total Bilirubin (0.2-1.0) mg/dL Direct Bilirubin (0.0-0.2) mg/dl AST (15-37) U/L ALT (16-63) U/L Alkaline Phosphatase (46-116) U/L C-Reactive Protein (<1.0) mg/dL Total Protein (6.4-8.2) g/dl Albumin (3.4-5.0) g/dl Globulin gm/dL Albumin/Globulin Ratio (1-2) Procalcitonin ng/mL TSH 3rd Generation (0.358-3.74) uIU/mL [place] Results Last 24 Hours: Microbiology 07/18/21 22:00 Blood Culture - Preliminary Blood - Venous - Lab Draw 07/18/21 22:10 Blood Culture - Preliminary Blood - Venous Med Orders - Current: Current Medications Acetaminophen (Acetaminophen 325 Mg Tab) 650 mg PO Q4H PRN PRN Reason: Fever Greater Than 101 Last Admin: 07/19/21 10:43 Dose: 650 mg Documented by: Albuterol (Albuterol 6.7 Gm Inhaler) 1 - 2 gm INH Q4H PRN PRN Reason: Shortness of Breath Last Admin: 07/20/21 09:23 Dose: 2 puff Documented by: Allopurinol (Allopurinol 100 Mg Tab) 50 mg PO DAILY [place] Last Admin: 07/20/21 08:40 Dose: 50 mg Documented by: Azithromycin (Azithromycin 250 Mg Tab) 500 mg PO DAILY [place] Stop: 07/25/21 09:46 Last Admin: 07/20/21 10:27 Dose: 500 mg Documented by: Benzonatate (Benzonatate 100 Mg Cap) 100 - 200 mg PO Q8H PRN PRN Reason: Cough Last Admin: 07/20/21 08:41 Dose: 200 mg Documented by: Dexamethasone (Dexamethasone 10 Mg/Ml Sdv) 6 mg IVPUSH DAILY [facility] Stop: 07/28/21 09:01 Last Admin: 07/20/21 08:45 Dose: 6 mg Documented by: Diltiazem HCl (Diltiazem 120 Mg Cap.Cd) 120 mg PO DAILY [facility] Last Admin: 07/20/21 08:38 Dose: 120 mg Documented by: Enoxaparin Sodium (Enoxaparin 40 Mg/0.4 Ml Syringe) 40 mg SUBCUT DAILY [facility] Last Admin: 07/20/21 08:46 Dose: 40 mg Documented by: Remdesivir 100 mg/ Sodium (Chloride) 100 mls @ 100 mls/hr IV Q24H [facility] Stop: 07/24/21 09:59 Insulin Human Lispro (Insulin Lispro 100 Unit/Ml 10 Ml Vial) 0 unit SUBCUT QIDACANDBED [facility]; Protocol Last Admin: 07/20/21 13:18 Dose: Not Given Documented by: Latanoprost (Latanoprost 0.005% Ophth Soln 2.5 Ml Bottle) 0 ml EYERT DAILY [facility] Last Admin: 07/20/21 08:44 Dose: 1 drop Documented by: Levothyroxine Sodium (Levothyroxine 125 Mcg Tab) 125 mcg PO DAILY@0600 [facility] Last Admin: 07/20/21 05:49 Dose: 125 mcg Documented by: Losartan Potassium (Losartan 50 Mg Tab) 50 mg PO DAILY [facility] Last Admin: 07/20/21 08:39 Dose: 50 mg Documented by: Oxycodone HCl (Oxycodone 5 Mg Tab) 5 mg PO Q4H PRN PRN Reason: back pain Pantoprazole Sodium (Pantoprazole 40 Mg Tab.Cr) 40 mg PO ACBREAKFAST [facility] Last Admin: 07/20/21 05:49 Dose: 40 mg Documented by: Rosuvastatin Calcium (Rosuvastatin 10 Mg Tab) 20 mg PO DAILY [facility] Last Admin: 07/20/21 08:42 Dose: 20 mg Documented by: Sodium Chloride (Sodium Chloride 0.9% 10 Ml Syringe) 10 ml FLUSH ASDIRECTED PRN PRN Reason: Keep Vein Open Last Admin: 07/18/21 20:36 Dose: 10 ml Documented by: Discontinued Medications Dexamethasone (Dexamethasone 10 Mg/Ml Sdv) 6 mg IVPUSH ONETIME ONE Stop: 07/18/21 21:41 Last Admin: 07/18/21 22:01 Dose: 6 mg Documented by: Ceftriaxone Sodium 2 gm/ (Sodium Chloride) 100 mls @ 200 mls/hr IV ONETIME ONE Stop: 07/18/21 22:09 Last Admin: 07/18/21 22:12 Dose: 200 mls/hr Documented by: Remdesivir 100 mg/ Sodium (Chloride) 100 mls @ 100 mls/hr IV Q24H [place] Stop: 07/23/21 09:29 Remdesivir 200 mg/ Sodium (Chloride) 250 mls @ 250 mls/hr IV ONETIME ONE Stop: 07/20/21 09:40 Last Admin: 07/20/21 10:25 Dose: 250 mls/hr Documented by: - Exam Physical Findings Comments:: General: obese middle aged male. Able to speak in full sentences. Pt is laying on his side. Still requiring at least 55L high flow oxygen with 70% FIO2 CVS: S1S2 appreciated. RRR lungs: diminished bilaterally with no rales or wheezes pa: soft, non tender. bowel sounds present ext: no clubbing, cyanosis or edema neuro: no focal deficits. Moves all extremities psych: stable mood and affect - Patient Data Lab Results Last 24 hrs: Laboratory Results - last 24 hr 07/18/21 07/18/21 07/19/21 Range/Units 20:38 20:38 16:09 WBC (4.23-9.07) K/mm3 RBC (4.63-6.08) M/mm3 Hgb (13.7-17.5) gm/dl Hct (40.1-51.0) % MCV (79.0-92.2) fl MCH (25.7-32.2) pg MCHC (32.2-35.5) g/dl RDW Std Deviation (35.1-43.9) fL Plt Count (163-337) K/mm3 MPV (9.4-12.3) fl Neut % (Auto) (34.0-67.9) % Lymph % (Auto) (21.8-53.1) % [place] % (Auto) (5.3-12.2) % Eos % (Auto) (0.8-7.0) Baso % (Auto) (0.1-1.2) % Neut # (Auto) (1.78-5.38) K/mm3 Lymph # (Auto) (1.32-3.57) K/mm3 [place] # (Auto) (0.30-0.82) K/mm3 Eos # (Auto) (0.04-0.54) K/mm3 Baso # (Auto) (0.01-0.08) K/mm3 Manual Slide Review D-Dimer, Quantitative (0.19-0.50) mg/L Sodium (136-145) mEq/L Potassium (3.5-5.1) mEq/L Chloride (98-107) mEq/L Carbon Dioxide (21-32) mEq/L Anion Gap (5-15) BUN (7-18) mg/dL Creatinine (0.7-1.3) mg/dL Est Cr Clr Drug Dosing mL/min Estimated GFR (MDRD) (>60) mL/min BUN/Creatinine Ratio (14-18) Glucose (70-99) mg/dL POC Glucose 141 H (70-99) mg/dL Calcium (8.5-10.1) mg/dL Phosphorus (2.6-4.7) mg/dL Magnesium (1.8-2.4) mg/dL Total Bilirubin (0.2-1.0) mg/dL Direct Bilirubin (0.0-0.2) mg/dl AST (15-37) U/L ALT (16-63) U/L Alkaline Phosphatase (46-116) U/L C-Reactive Protein (<1.0) mg/dL Total Protein (6.4-8.2) g/dl Albumin (3.4-5.0) g/dl Globulin gm/dL Albumin/Globulin Ratio (1-2) Procalcitonin 0.26 H ng/mL TSH 3rd Generation 1.224 (0.358-3.74) uIU/mL 07/19/21 07/20/21 07/20/21 Range/Units 20:51 05:54 08:25 WBC 14.45 H (4.23-9.07) K/mm3 RBC 5.08 (4.63-6.08) M/mm3 Hgb 15.7 (13.7-17.5) gm/dl Hct 47.4 (40.1-51.0) % MCV 93.3 H (79.0-92.2) fl MCH 30.9 (25.7-32.2) pg MCHC 33.1 (32.2-35.5) g/dl RDW Std Deviation 45.7 H (35.1-43.9) fL Plt Count 254 (163-337) K/mm3 MPV 8.9 L (9.4-12.3) fl Neut % (Auto) 85.6 H (34.0-67.9) % Lymph % (Auto) 6.4 L (21.8-53.1) % [place] % (Auto) 6.4 (5.3-12.2) % Eos % (Auto) 0 L (0.8-7.0) Baso % (Auto) 0.3 (0.1-1.2) % Neut # (Auto) 12.37 H (1.78-5.38) K/mm3 Lymph # (Auto) 0.92 L (1.32-3.57) K/mm3 [place] # (Auto) 0.93 H (0.30-0.82) K/mm3 Eos # (Auto) 0.00 L (0.04-0.54) K/mm3 Baso # (Auto) 0.04 (0.01-0.08) K/mm3 Manual Slide Review Abnormal smear D-Dimer, Quantitative (0.19-0.50) mg/L Sodium (136-145) mEq/L Potassium (3.5-5.1) mEq/L Chloride (98-107) mEq/L Carbon Dioxide (21-32) mEq/L Anion Gap (5-15) BUN (7-18) mg/dL Creatinine (0.7-1.3) mg/dL Est Cr Clr Drug Dosing mL/min Estimated GFR (MDRD) (>60) mL/min BUN/Creatinine Ratio (14-18) Glucose (70-99) mg/dL POC Glucose 115 H 109 H (70-99) mg/dL Calcium (8.5-10.1) mg/dL Phosphorus (2.6-4.7) mg/dL Magnesium (1.8-2.4) mg/dL Total Bilirubin (0.2-1.0) mg/dL Direct Bilirubin (0.0-0.2) mg/dl AST (15-37) U/L ALT (16-63) U/L Alkaline Phosphatase (46-116) U/L C-Reactive Protein (<1.0) mg/dL Total Protein (6.4-8.2) g/dl Albumin (3.4-5.0) g/dl Globulin gm/dL Albumin/Globulin Ratio (1-2) Procalcitonin ng/mL TSH 3rd Generation (0.358-3.74) uIU/mL 07/20/21 07/20/21 07/20/21 Range/Units 08:25 08:25 08:25 WBC (4.23-9.07) K/mm3 RBC (4.63-6.08) M/mm3 Hgb (13.7-17.5) gm/dl Hct (40.1-51.0) % MCV (79.0-92.2) fl MCH (25.7-32.2) pg MCHC (32.2-35.5) g/dl RDW Std Deviation (35.1-43.9) fL Plt Count (163-337) K/mm3 MPV (9.4-12.3) fl Neut % (Auto) (34.0-67.9) % Lymph % (Auto) (21.8-53.1) % [place] % (Auto) (5.3-12.2) % Eos % (Auto) (0.8-7.0) Baso % (Auto) (0.1-1.2) % Neut # (Auto) (1.78-5.38) K/mm3 Lymph # (Auto) (1.32-3.57) K/mm3 [place] # (Auto) (0.30-0.82) K/mm3 Eos # (Auto) (0.04-0.54) K/mm3 Baso # (Auto) (0.01-0.08) K/mm3 Manual Slide Review D-Dimer, Quantitative 0.38 (0.19-0.50) mg/L Sodium 137 (136-145) mEq/L Potassium 4.5 (3.5-5.1) mEq/L Chloride 102 (98-107) mEq/L Carbon Dioxide 25 (21-32) mEq/L Anion Gap 14.5 (5-15) BUN 37 H (7-18) mg/dL Creatinine 1.6 H (0.7-1.3) mg/dL Est Cr Clr Drug Dosing 50.52 mL/min Estimated GFR (MDRD) 44 (>60) mL/min BUN/Creatinine Ratio 23.1 H (14-18) Glucose 109 H (70-99) mg/dL POC Glucose (70-99) mg/dL Calcium 8.9 (8.5-10.1) mg/dL Phosphorus 4.4 (2.6-4.7) mg/dL Magnesium 2.5 H (1.8-2.4) mg/dL Total Bilirubin 0.6 (0.2-1.0) mg/dL Direct Bilirubin 0.20 (0.0-0.2) mg/dl AST 70 H (15-37) U/L ALT 151 H (16-63) U/L Alkaline Phosphatase 86 (46-116) U/L C-Reactive Protein 7.0 H* (<1.0) mg/dL Total Protein 7.4 (6.4-8.2) g/dl Albumin 2.9 L (3.4-5.0) g/dl Globulin 4.5 gm/dL Albumin/Globulin Ratio 0.6 L (1-2) Procalcitonin ng/mL TSH 3rd Generation (0.358-3.74) uIU/mL 07/20/21 Range/Units 11:30 WBC (4.23-9.07) K/mm3 RBC (4.63-6.08) M/mm3 Hgb (13.7-17.5) gm/dl Hct (40.1-51.0) % MCV (79.0-92.2) fl MCH (25.7-32.2) pg MCHC (32.2-35.5) g/dl RDW Std Deviation (35.1-43.9) fL Plt Count (163-337) K/mm3 MPV (9.4-12.3) fl Neut % (Auto) (34.0-67.9) % Lymph % (Auto) (21.8-53.1) % [place] % (Auto) (5.3-12.2) % Eos % (Auto) (0.8-7.0) Baso % (Auto) (0.1-1.2) % Neut # (Auto) (1.78-5.38) K/mm3 Lymph # (Auto) (1.32-3.57) K/mm3 [place] # (Auto) (0.30-0.82) K/mm3 Eos # (Auto) (0.04-0.54) K/mm3 Baso # (Auto) (0.01-0.08) K/mm3 Manual Slide Review D-Dimer, Quantitative (0.19-0.50) mg/L Sodium (136-145) mEq/L Potassium (3.5-5.1) mEq/L Chloride (98-107) mEq/L Carbon Dioxide (21-32) mEq/L Anion Gap (5-15) BUN (7-18) mg/dL Creatinine (0.7-1.3) mg/dL Est Cr Clr Drug Dosing mL/min Estimated GFR (MDRD) (>60) mL/min BUN/Creatinine Ratio (14-18) Glucose (70-99) mg/dL POC Glucose 146 H (70-99) mg/dL Calcium (8.5-10.1) mg/dL Phosphorus (2.6-4.7) mg/dL Magnesium (1.8-2.4) mg/dL Total Bilirubin (0.2-1.0) mg/dL Direct Bilirubin (0.0-0.2) mg/dl AST (15-37) U/L ALT (16-63) U/L Alkaline Phosphatase (46-116) U/L C-Reactive Protein (<1.0) mg/dL Total Protein (6.4-8.2) g/dl Albumin (3.4-5.0) g/dl Globulin gm/dL Albumin/Globulin Ratio (1-2) Procalcitonin ng/mL TSH 3rd Generation (0.358-3.74) uIU/mL Result Diagrams: 07/20/21 08:25 07/20/21 08:25 [place] Results Last 24 hrs: Microbiology 07/18/21 22:00 Blood Culture - Preliminary Blood - Venous - Lab Draw 07/18/21 22:10 Blood Culture - Preliminary Blood - Venous Sepsis Event Note - Evaluation Sepsis Screening Result: Possible Sepsis Risk - Focused Exam Vital Signs: Vital Signs Temp Pulse Resp BP Pulse Ox Pulse Ox 09/12/21 12:00 33 H 07/20/21 11:30 97.3 F 64 24 H 113/86 89 L 07/20/21 11:00 28 H 07/20/21 10:00 16 07/20/21 09:50 28 H 115/56 L 07/20/21 09:40 91 L 07/20/21 09:24 91 L 07/20/21 09:00 25 H 07/20/21 08:39 118/103 H 07/20/21 08:38 67 118/103 H 07/20/21 08:30 97.7 F 67 20 118/103 H 95 07/20/21 08:00 33 H 07/20/21 07:42 90 L 07/20/21 07:37 98.6 F 63 20 118/65 07/20/21 07:00 28 H 07/20/21 06:00 27 H 07/20/21 05:39 92 L 07/20/21 05:20 72 L 07/20/21 05:00 35 H 07/20/21 04:48 98.6 F 28 H 99/64 07/20/21 04:00 31 H 07/20/21 03:35 94 L - Problem List & Annotations (1) Pneumonia due to COVID-19 virus SNOMED Code(s): 734438241541182853 Code(s): U07.1 - COVID-19; J12.82 - PNEUMONIA DUE TO CORONAVIRUS DISEASE 2019 Status: Acute Current Visit: Yes (2) Acute respiratory failure due to COVID-19 SNOMED Code(s): 903337645 Code(s): U07.1 - COVID-19; J96.00 - ACUTE RESPIRATORY FAILURE, UNSP W HYPOXIA OR HYPERCAPNIA Status: Acute Current Visit: Yes (3) COVID-19 SNOMED Code(s): 900108796 Code(s): U07.1 - COVID-19 Status: Acute Current Visit: Yes (4) Diabetes type 2, controlled SNOMED Code(s): 91565162, 623809372 Code(s): E11.9 - TYPE 2 DIABETES MELLITUS WITHOUT COMPLICATIONS Status: Acu te Current Visit: Yes (5) HTN (hypertension) SNOMED Code(s): 41945397 Code(s): I10 - ESSENTIAL (PRIMARY) HYPERTENSION Status: Acute Current Visit: Yes - Problem List Review Problem List Initiated/Reviewed/Updated: Yes - My Orders Last 24 Hours: My Active Orders 07/20/21 09:45 Azithromycin [Zithromax] 500 mg PO DAILY 07/20/21 14:12 Patient Status [ADT] Routine 07/21/21 09:00 Remdesivir 100 mg Sodium Chloride 0.9% [Normal Saline] 100 ml IV Q24H 07/21/21 09:45 HEPATIC FUNCTION PANEL,HFP [CHEM] DAILY 07/21/21 09:47 D-DIMER QUANTITATIVE [COAG] Routine 07/21/21 09:48 CBC WITH AUTO DIFF [HEME] DAILY CRP [C-REACTIVE PROTEIN] [CHEM] Routine 07/21/21 09:49 BASIC METABOLIC PANEL,BMP [CHEM] DAILY 07/22/21 09:45 HEPATIC FUNCTION PANEL,HFP [CHEM] DAILY 07/22/21 09:48 CBC WITH AUTO DIFF [HEME] DAILY 07/22/21 09:49 BASIC METABOLIC PANEL,BMP [CHEM] DAILY 07/23/21 09:45 HEPATIC FUNCTION PANEL,HFP [CHEM] DAILY 07/24/21 09:45 HEPATIC FUNCTION PANEL,HFP [CHEM] DAILY - Plan Plan:: 66-year-old diabetic with COVID-19 presented to the emergency room with worsening shortness of breath. Acute hypoxemic respiratory failure due to COVID 19 pneumonia Transfer pt to the ICU service supportive measures. Continue with high flow oxygen. Encourage proning and use of the incentive spirometer Qhr Pneumonia due to COVID-19 -Hypoxemia requiring high flow nasal cannula -White count 11.3, CRP 5.7, BNP 130, albumin 3.2, D-dimer 0.32 -Given Rocephin, dexamethasone, and baricitinib in the emergency department -Continue dexamethasone and baricitinib. Will add zithromax and Remdesivir. Acute kidney injury on chronic kidney injury. -Review of old records suggest baseline creatinine of 1.4 and estimated GFR of 51. -Initial GFR 41, creatinine 1.7 -Renally adjust medications Type 2 diabetes with diabetic nephropathy -Get hemoglobin A1c -Continue home meds -Fingerstick blood sugar before every meal and at bedtime -Sliding scale insulin -Anticipate increasing blood sugars secondary to steroids Hypertension, gout, hypothyroid, hyperlipidemia -Continue home meds -Get TSH Obesity will need lifestyle modification changes. VTE prophylaxis with Lovenox CODE STATUS: Full code prognosis remains guarded. Pt may require intubation if his oxygenation worsens.
[2021-07-20] MEDS: Acetaminophen 325 MG Tab PO PRN (16:59)
[2021-07-21] MEDS: Pantoprazole 40 MG Tab.CR PO SCH (06:40)
[2021-07-21] MEDS: Levothyroxine 125 MCG Tab PO SCH (06:40)
[2021-07-21] MEDS: Insulin Lispro 100 UNIT/ML 10 ML Vial SUBCUT SCH ×4 (06:41→22:20)
[2021-07-21] MEDS: Azithromycin 250 MG Tab PO SCH (07:59)
[2021-07-21] MEDS: Rosuvastatin 10 MG Tab PO SCH (07:59)
[2021-07-21] MEDS: Allopurinol 100 MG Tab PO SCH (08:00)
[2021-07-21] MEDS: Diltiazem 120 MG Cap.CD PO SCH (08:00)
[2021-07-21] MEDS: Empagliflozin 25 MG Tab PO SCH (08:01)
[2021-07-21] MEDS: Dexamethasone 10 MG/ML SDV IVPUSH SCH (08:01)
[2021-07-21] MEDS: Enoxaparin 40 MG/0.4 ML Syringe SUBCUT SCH (08:01)
[2021-07-21] MEDS: Losartan 50 MG Tab PO SCH (08:01)
[2021-07-21] MEDS: REMDESIVIR 100 MG in Sodium Chloride 0.9% 100 ML IV SCH (08:36)
[2021-07-21] MEDS: Albuterol 6.7 GM Inhaler INH PRN ×2 (09:24→21:25)
[2021-07-21] MEDS: Latanoprost 0.005% Ophth Soln 2.5 ML Bottle EYERT SCH (10:06)
--- NOTE | 2021-07-21 16:45 | PCM.PN ---
- General Info Date of Service: 07/21/21 Admission Dx/Problem (Free Text): Admission Diagnosis/Problem Admission Diagnosis/Problem Hypoxia Subjective Update: Pt is doing a little better today. His oxygen has been weaned down some but still needs high flow oxygen supplementation. He does well with proning and laying on his side. - Patient Data Vitals - Most Recent: Last Vital Signs Temp 97.7 F 07/21/21 12:00 Pulse 64 07/21/21 12:00 Resp 18 07/21/21 12:00 BP 115/54 L 07/21/21 12:00 Pulse Ox 92 L 07/21/21 12:00 Weight - Most Recent: 237 lb I&O - Last 24 Hours: Intake & Output 07/21/21 07/21/21 07/21/21 06:59 14:59 22:59 Intake Total 800 520 100 Output Total 950 Balance -150 520 100 Lab Results Last 24 Hours: Laboratory Results - last 24 hr 07/20/21 07/21/21 07/21/21 Range/Units 20:22 06:39 09:10 WBC (4.23-9.07) K/mm3 RBC (4.63-6.08) M/mm3 Hgb (13.7-17.5) gm/dl Hct (40.1-51.0) % MCV (79.0-92.2) fl MCH (25.7-32.2) pg MCHC (32.2-35.5) g/dl RDW Std Deviation (35.1-43.9) fL Plt Count (163-337) K/mm3 MPV (9.4-12.3) fl Neut % (Auto) (34.0-67.9) % Lymph % (Auto) (21.8-53.1) % [place] % (Auto) (5.3-12.2) % Eos % (Auto) (0.8-7.0) Baso % (Auto) (0.1-1.2) % Neut # (Auto) (1.78-5.38) K/mm3 Lymph # (Auto) (1.32-3.57) K/mm3 [place] # (Auto) (0.30-0.82) K/mm3 Eos # (Auto) (0.04-0.54) K/mm3 Baso # (Auto) (0.01-0.08) K/mm3 Manual Slide Review D-Dimer, Quantitative (0.19-0.50) mg/L Sodium 136 (136-145) mEq/L Potassium 4.1 (3.5-5.1) mEq/L Chloride 102 (98-107) mEq/L Carbon Dioxide 21 (21-32) mEq/L Anion Gap 17.1 H (5-15) BUN 40 H (7-18) mg/dL Creatinine 1.5 H (0.7-1.3) mg/dL Est Cr Clr Drug Dosing 53.89 mL/min Estimated GFR (MDRD) 47 (>60) mL/min BUN/Creatinine Ratio 26.7 H (14-18) Glucose 139 H (70-99) mg/dL POC Glucose 131 H 94 (70-99) mg/dL Calcium 9.1 (8.5-10.1) mg/dL Total Bilirubin 0.9 (0.2-1.0) mg/dL Direct Bilirubin 0.30 H (0.0-0.2) mg/dl Indirect Bilirubin 0.60 AST 97 H (15-37) U/L ALT 225 H (16-63) U/L Alkaline Phosphatase 101 (46-116) U/L C-Reactive Protein 7.5 H* (<1.0) mg/dL Total Protein 7.3 (6.4-8.2) g/dl Albumin 2.9 L (3.4-5.0) g/dl Globulin 4.4 gm/dL Albumin/Globulin Ratio 0.7 L (1-2) 07/21/21 07/21/21 07/21/21 Range/Units 09:10 09:10 11:04 WBC 12.17 H (4.23-9.07) K/mm3 RBC 5.01 (4.63-6.08) M/mm3 Hgb 15.7 (13.7-17.5) gm/dl Hct 46.6 (40.1-51.0) % MCV 93.0 H (79.0-92.2) fl MCH 31.3 (25.7-32.2) pg MCHC 33.7 (32.2-35.5) g/dl RDW Std Deviation 45.2 H (35.1-43.9) fL Plt Count 250 (163-337) K/mm3 MPV 9.5 (9.4-12.3) fl Neut % (Auto) 89.1 H (34.0-67.9) % Lymph % (Auto) 5.8 L (21.8-53.1) % [place] % (Auto) 3.7 L (5.3-12.2) % Eos % (Auto) 0 L (0.8-7.0) Baso % (Auto) 0.2 (0.1-1.2) % Neut # (Auto) 10.85 H (1.78-5.38) K/mm3 Lymph # (Auto) 0.70 L (1.32-3.57) K/mm3 [place] # (Auto) 0.45 (0.30-0.82) K/mm3 Eos # (Auto) 0.00 L (0.04-0.54) K/mm3 Baso # (Auto) 0.02 (0.01-0.08) K/mm3 Manual Slide Review Normal smear D-Dimer, Quantitative 0.60 H (0.19-0.50) mg/L Sodium (136-145) mEq/L Potassium (3.5-5.1) mEq/L Chloride (98-107) mEq/L Carbon Dioxide (21-32) mEq/L Anion Gap (5-15) BUN (7-18) mg/dL Creatinine (0.7-1.3) mg/dL Est Cr Clr Drug Dosing mL/min Estimated GFR (MDRD) (>60) mL/min BUN/Creatinine Ratio (14-18) Glucose (70-99) mg/dL POC Glucose 160 H (70-99) mg/dL Calcium (8.5-10.1) mg/dL Total Bilirubin (0.2-1.0) mg/dL Direct Bilirubin (0.0-0.2) mg/dl Indirect Bilirubin AST (15-37) U/L ALT (16-63) U/L Alkaline Phosphatase (46-116) U/L C-Reactive Protein (<1.0) mg/dL Total Protein (6.4-8.2) g/dl Albumin (3.4-5.0) g/dl Globulin gm/dL Albumin/Globulin Ratio (1-2) [place] Results Last 24 Hours: Microbiology 07/18/21 22:00 Blood Culture - Preliminary Blood - Venous - Lab Draw 07/18/21 22:10 Blood Culture - Preliminary Blood - Venous Med Orders - Current: Current Medications Acetaminophen (Acetaminophen 325 Mg Tab) 650 mg PO Q4H PRN PRN Reason: Fever Greater Than 101 Last Admin: 07/20/21 16:59 Dose: 650 mg Documented by: Albuterol (Albuterol 6.7 Gm Inhaler) 1 - 2 gm INH Q4H PRN PRN Reason: Shortness of Breath Last Admin: 07/21/21 09:24 Dose: 2 puff Documented by: Allopurinol (Allopurinol 100 Mg Tab) 50 mg PO DAILY [facility] Last Admin: 07/21/21 08:00 Dose: 50 mg Documented by: Azithromycin (Azithromycin 250 Mg Tab) 500 mg PO DAILY [facility] Stop: 07/25/21 09:46 Last Admin: 07/21/21 07:59 Dose: 500 mg Documented by: Benzonatate (Benzonatate 100 Mg Cap) 100 - 200 mg PO Q8H PRN PRN Reason: Cough Last Admin: 07/20/21 20:27 Dose: 200 mg Documented by: Dexamethasone (Dexamethasone 10 Mg/Ml Sdv) 6 mg IVPUSH DAILY [facility] Stop: 07/27/21 09:01 Last Admin: 07/21/21 08:01 Dose: 6 mg Documented by: Diltiazem HCl (Diltiazem 120 Mg Cap.Cd) 120 mg PO DAILY [facility] Last Admin: 07/21/21 08:00 Dose: 120 mg Documented by: Enoxaparin Sodium (Enoxaparin 40 Mg/0.4 Ml Syringe) 40 mg SUBCUT DAILY [facility] Last Admin: 07/21/21 08:01 Dose: 40 mg Documented by: Remdesivir 100 mg/ Sodium (Chloride) 100 mls @ 100 mls/hr IV Q24H [facility] Stop: 07/24/21 09:59 Last Admin: 07/21/21 08:36 Dose: 100 mls/hr Documented by: Insulin Human Lispro (Insulin Lispro 100 Unit/Ml 10 Ml Vial) 0 unit SUBCUT QIDACANDBED [facility]; Protocol Last Admin: 07/21/21 12:25 Dose: 2 units Documented by: Latanoprost (Latanoprost 0.005% Ophth Soln 2.5 Ml Bottle) 0 ml EYERT DAILY [facility] Last Admin: 07/21/21 10:06 Dose: 1 drop Documented by: Levothyroxine Sodium (Levothyroxine 125 Mcg Tab) 125 mcg PO DAILY@0600 [facility] Last Admin: 07/21/21 06:40 Dose: 125 mcg Documented by: Losartan Potassium (Losartan 50 Mg Tab) 50 mg PO DAILY [facility] Last Admin: 07/21/21 08:01 Dose: 50 mg Documented by: Oxycodone HCl (Oxycodone 5 Mg Tab) 5 mg PO Q4H PRN PRN Reason: back pain Pantoprazole Sodium (Pantoprazole 40 Mg Tab.Cr) 40 mg PO ACBREAKFAST [facility] Last Admin: 07/21/21 06:40 Dose: 40 mg Documented by: Rosuvastatin Calcium (Rosuvastatin 10 Mg Tab) 20 mg PO DAILY [facility] Last Admin: 07/21/21 07:59 Dose: 20 mg Documented by: Sodium Chloride (Sodium Chloride 0.9% 10 Ml Syringe) 10 ml FLUSH ASDIRECTED PRN PRN Reason: Keep Vein Open Last Admin: 07/18/21 20:36 Dose: 10 ml Documented by: Discontinued Medications Dexamethasone (Dexamethasone 10 Mg/Ml Sdv) 6 mg IVPUSH ONETIME ONE Stop: 07/18/21 21:41 Last Admin: 07/18/21 22:01 Dose: 6 mg Documented by: Ceftriaxone Sodium 2 gm/ (Sodium Chloride) 100 mls @ 200 mls/hr IV ONETIME ONE Stop: 07/18/21 22:09 Last Admin: 07/18/21 22:12 Dose: 200 mls/hr Documented by: Remdesivir 100 mg/ Sodium (Chloride) 100 mls @ 100 mls/hr IV Q24H [facility] Stop: 07/23/21 09:29 Remdesivir 200 mg/ Sodium (Chloride) 250 mls @ 250 mls/hr IV ONETIME ONE Stop: 07/20/21 09:40 Last Admin: 07/20/21 10:25 Dose: 250 mls/hr Documented by: - Exam Physical Findings Comments:: General: Middle aged male. In no acute distress. Able to speak in full sentences. CVS: S1S2 appreciated. RRR lungs: clear bilaterally with no rales or wheezes. pa: obese, soft, non tender. ext: no clubbing, cyanosis or edema neuro: no focal deficits. - Patient Data Lab Results Last 24 hrs: Laboratory Results - last 24 hr 07/20/21 07/21/21 07/21/21 Range/Units 20:22 06:39 09:10 WBC (4.23-9.07) K/mm3 RBC (4.63-6.08) M/mm3 Hgb (13.7-17.5) gm/dl Hct (40.1-51.0) % MCV (79.0-92.2) fl MCH (25.7-32.2) pg MCHC (32.2-35.5) g/dl RDW Std Deviation (35.1-43.9) fL Plt Count (163-337) K/mm3 MPV (9.4-12.3) fl Neut % (Auto) (34.0-67.9) % Lymph % (Auto) (21.8-53.1) % [place] % (Auto) (5.3-12.2) % Eos % (Auto) (0.8-7.0) Baso % (Auto) (0.1-1.2) % Neut # (Auto) (1.78-5.38) K/mm3 Lymph # (Auto) (1.32-3.57) K/mm3 [place] # (Auto) (0.30-0.82) K/mm3 Eos # (Auto) (0.04-0.54) K/mm3 Baso # (Auto) (0.01-0.08) K/mm3 Manual Slide Review D-Dimer, Quantitative (0.19-0.50) mg/L Sodium 136 (136-145) mEq/L Potassium 4.1 (3.5-5.1) mEq/L Chloride 102 (98-107) mEq/L Carbon Dioxide 21 (21-32) mEq/L Anion Gap 17.1 H (5-15) BUN 40 H (7-18) mg/dL Creatinine 1.5 H (0.7-1.3) mg/dL Est Cr Clr Drug Dosing 53.89 mL/min Estimated GFR (MDRD) 47 (>60) mL/min BUN/Creatinine Ratio 26.7 H (14-18) Glucose 139 H (70-99) mg/dL POC Glucose 131 H 94 (70-99) mg/dL Calcium 9.1 (8.5-10.1) mg/dL Total Bilirubin 0.9 (0.2-1.0) mg/dL Direct Bilirubin 0.30 H (0.0-0.2) mg/dl Indirect Bilirubin 0.60 AST 97 H (15-37) U/L ALT 225 H (16-63) U/L Alkaline Phosphatase 101 (46-116) U/L C-Reactive Protein 7.5 H* (<1.0) mg/dL Total Protein 7.3 (6.4-8.2) g/dl Albumin 2.9 L (3.4-5.0) g/dl Globulin 4.4 gm/dL Albumin/Globulin Ratio 0.7 L (1-2) 07/21/21 07/21/21 07/21/21 Range/Units 09:10 09:10 11:04 WBC 12.17 H (4.23-9.07) K/mm3 RBC 5.01 (4.63-6.08) M/mm3 Hgb 15.7 (13.7-17.5) gm/dl Hct 46.6 (40.1-51.0) % MCV 93.0 H (79.0-92.2) fl MCH 31.3 (25.7-32.2) pg MCHC 33.7 (32.2-35.5) g/dl RDW Std Deviation 45.2 H (35.1-43.9) fL Plt Count 250 (163-337) K/mm3 MPV 9.5 (9.4-12.3) fl Neut % (Auto) 89.1 H (34.0-67.9) % Lymph % (Auto) 5.8 L (21.8-53.1) % [place] % (Auto) 3.7 L (5.3-12.2) % Eos % (Auto) 0 L (0.8-7.0) Baso % (Auto) 0.2 (0.1-1.2) % Neut # (Auto) 10.85 H (1.78-5.38) K/mm3 Lymph # (Auto) 0.70 L (1.32-3.57) K/mm3 [place] # (Auto) 0.45 (0.30-0.82) K/mm3 Eos # (Auto) 0.00 L (0.04-0.54) K/mm3 Baso # (Auto) 0.02 (0.01-0.08) K/mm3 Manual Slide Review Normal smear D-Dimer, Quantitative 0.60 H (0.19-0.50) mg/L Sodium (136-145) mEq/L Potassium (3.5-5.1) mEq/L Chloride (98-107) mEq/L Carbon Dioxide (21-32) mEq/L Anion Gap (5-15) BUN (7-18) mg/dL Creatinine (0.7-1.3) mg/dL Est Cr Clr Drug Dosing mL/min Estimated GFR (MDRD) (>60) mL/min BUN/Creatinine Ratio (14-18) Glucose (70-99) mg/dL POC Glucose 160 H (70-99) mg/dL Calcium (8.5-10.1) mg/dL Total Bilirubin (0.2-1.0) mg/dL Direct Bilirubin (0.0-0.2) mg/dl Indirect Bilirubin AST (15-37) U/L ALT (16-63) U/L Alkaline Phosphatase (46-116) U/L C-Reactive Protein (<1.0) mg/dL Total Protein (6.4-8.2) g/dl Albumin (3.4-5.0) g/dl Globulin gm/dL Albumin/Globulin Ratio (1-2) Result Diagrams: 07/21/21 09:10 07/21/21 09:10 [place] Results Last 24 hrs: Microbiology 07/18/21 22:00 Blood Culture - Preliminary Blood - Venous - Lab Draw 07/18/21 22:10 Blood Culture - Preliminary Blood - Venous Sepsis Event Note - Evaluation Sepsis Screening Result: No Definite Risk - Focused Exam Vital Signs: Vital Signs Temp Pulse Pulse Resp BP BP BP 07/21/21 12:00 97.7 F 64 18 115/54 L 07/21/21 09:26 07/21/21 08:01 117/74 07/21/21 08:00 97.9 F 63 64 18 117/74 117/74 07/21/21 06:00 13 Pulse Ox Pulse Ox 07/21/21 12:00 92 L 07/21/21 09:26 90 L 07/21/21 08:01 07/21/21 08:00 95 07/21/21 06:00 93 L - Problem List & Annotations (1) Pneumonia due to COVID-19 virus SNOMED Code(s): 258233274402180722 Code(s): U07.1 - COVID-19; J12.82 - PNEUMONIA DUE TO CORONAVIRUS DISEASE 2018 Status: Acute Current Visit: Yes (2) Acute respiratory failure due to COVID-19 SNOMED Code(s): 377701000 Code(s): U07.1 - COVID-19; J96.00 - ACUTE RESPIRATORY FAILURE, UNSP W HYPOXIA OR HYPERCAPNIA Status: Acute Current Visit: Yes (3) COVID-19 SNOMED Code(s): 008542343 Code(s): U07.1 - COVID-19 Status: Acute Current Visit: Yes (4) Diabetes type 2, controlled SNOMED Code(s): 70668100, 088815143 Code(s): E11.9 - TYPE 2 DIABETES MELLITUS WITHOUT COMPLICATIONS Status: Acute Current Visit: Yes (5) HTN (hypertension) SNOMED Code(s): 79180853 Code(s): I10 - ESSENTIAL (PRIMARY) HYPERTENSION Status: Acute Current Visit: Yes - Problem List Review Problem List Initiated/Reviewed/Updated: Yes - My Orders Last 24 Hours: My Active Orders 07/21/21 09:00 Remdesivir 100 mg Sodium Chloride 0.9% [Normal Saline] 100 ml IV Q24H 07/22/21 09:45 HEPATIC FUNCTION PANEL,HFP [CHEM] DAILY 07/22/21 09:48 CBC WITH AUTO DIFF [HEME] DAILY 07/22/21 09:49 BASIC METABOLIC PANEL,BMP [CHEM] DAILY 07/23/21 09:45 HEPATIC FUNCTION PANEL,HFP [CHEM] DAILY 07/24/21 09:45 HEPATIC FUNCTION PANEL,HFP [CHEM] DAILY - Plan Plan:: 66-year-old diabetic with COVID-19 presented to the emergency room with wor sening shortness of breath. Acute hypoxemic respiratory failure due to COVID 19 pneumonia Continue with supportive care in the ICU. Continue with high flow oxygen and wean down oxygen flow rate as tolerated. . Encourage proning and use of the incentive spirometer Qhr Pneumonia due to COVID-19 -Hypoxemia requiring high flow nasal cannula -White count 11.3, CRP 5.7, BNP 130, albumin 3.2, D-dimer 0.32 -Given Rocephin, dexamethasone, and baricitinib in the emergency department -Continue dexamethasone and baricitinib. Will add zithromax and Remdesivir. Acute kidney injury on chronic kidney injury. -Review of old records suggest baseline creatinine of 1.4 and estimated GFR of 51. -Initial GFR 41, creatinine 1.7 -Renally adjust medications Type 2 diabetes with diabetic nephropathy -Get hemoglobin A1c -Continue home meds -Fingerstick blood sugar before every meal and at bedtime -Sliding scale insulin -Anticipate increasing blood sugars secondary to steroids Hypertension, gout, hypothyroid, hyperlipidemia -Continue home meds -Get TSH Obesity will need lifestyle modification changes. VTE prophylaxis with Lovenox CODE STATUS: Full code prognosis remains guarded. Pt may require intubation if his oxygenation worsens.
[2021-07-21] MEDS: Acetaminophen 325 MG Tab PO PRN (19:55)
[2021-07-22] MEDS: Levothyroxine 125 MCG Tab PO SCH (07:31)
[2021-07-22] MEDS: Pantoprazole 40 MG Tab.CR PO SCH (07:31)
[2021-07-22] MEDS: Insulin Lispro 100 UNIT/ML 10 ML Vial SUBCUT SCH ×4 (07:32→22:56)
[2021-07-22] MEDS: Azithromycin 250 MG Tab PO SCH ×2 (07:49→10:19)
[2021-07-22] MEDS: Allopurinol 100 MG Tab PO SCH ×2 (07:50→10:19)
[2021-07-22] MEDS: Diltiazem 120 MG Cap.CD PO SCH ×2 (07:50→10:19)
[2021-07-22] MEDS: Empagliflozin 25 MG Tab PO SCH ×2 (07:50→10:19)
[2021-07-22] MEDS: Losartan 50 MG Tab PO SCH ×2 (07:51→10:19)
[2021-07-22] MEDS: Enoxaparin 40 MG/0.4 ML Syringe SUBCUT SCH ×2 (07:51→10:19)
[2021-07-22] MEDS: Dexamethasone 10 MG/ML SDV IVPUSH SCH ×2 (07:51→10:19)
[2021-07-22] MEDS: Rosuvastatin 10 MG Tab PO SCH ×2 (07:52→10:19)
[2021-07-22] MEDS: Albuterol 6.7 GM Inhaler INH PRN ×2 (08:03→13:50)
[2021-07-22] MEDS: REMDESIVIR 100 MG in Sodium Chloride 0.9% 100 ML IV SCH (09:23)
[2021-07-22] MEDS: Latanoprost 0.005% Ophth Soln 2.5 ML Bottle EYERT SCH (10:20)
--- NOTE | 2021-07-22 13:06 | PCM.PN ---
- General Info Date of Service: 07/22/21 Admission Dx/Problem (Free Text): Admission Diagnosis/Problem Admission Diagnosis/Problem Hypoxia Subjective Update: Aziza is continuing to have significant desaturations. His appetite is good. He went to the bathroom and his oxygen saturation dropped down to the 50% but when he prone getting back to the bed his oxygen saturations went back up to 90%. He is on high flow nasal cannula at 55 L, 75% FiO2. Functional Status: Reports: Pain Controlled - Review of Systems General: Reports: No Symptoms HEENT: Reports: No Symptoms Pulmonary: Reports: Shortness of Breath, Cough Cardiovascular: Reports: No Symptoms Gastrointestinal: Reports: No Symptoms Musculoskeletal: Reports: No Symptoms - Patient Data Vitals - Most Recent: Last Vital Signs Temp 97.8 F 07/22/21 12:00 Pulse 64 07/22/21 12:00 Resp 26 H 07/22/21 12:00 BP 114/51 L 07/22/21 12:00 Pulse Ox 92 L 07/22/21 12:00 Weight - Most Recent: 233 lb 11.2 oz I&O - Last 24 Hours: Intake & Output 07/21/21 07/22/21 07/22/21 22:59 06:59 14:59 Intake Total 1205 800 Output Total 795 1125 Balance 410 -325 Lab Results Last 24 Hours: Laboratory Results - last 24 hr 07/21/21 07/21/21 07/22/21 Range/Units 17:10 21:39 06:11 WBC (4.23-9.07) K/mm3 RBC (4.63-6.08) M/mm3 Hgb (13.7-17.5) gm/dl Hct (40.1-51.0) % MCV (79.0-92.2) fl MCH (25.7-32.2) pg MCHC (32.2-35.5) g/dl RDW Std Deviation (35.1-43.9) fL Plt Count (163-337) K/mm3 MPV (9.4-12.3) fl Neut % (Auto) (34.0-67.9) % Lymph % (Auto) (21.8-53.1) % Bee % (Auto) (5.3-12.2) % Eos % (Auto) (0.8-7.0) Baso % (Auto) (0.1-1.2) % Neut # (Auto) (1.78-5.38) K/mm3 Lymph # (Auto) (1.32-3.57) K/mm3 Bee # (Auto) (0.30-0.82) K/mm3 Eos # (Auto) (0.04-0.54) K/mm3 Baso # (Auto) (0.01-0.08) K/mm3 Manual Slide Review Sodium 138 (136-145) mEq/L Potassium 4.5 (3.5-5.1) mEq/L Chloride 103 (98-107) mEq/L Carbon Dioxide 24 (21-32) mEq/L Anion Gap 15.5 H (5-15) BUN 43 H (7-18) mg/dL Creatinine 1.5 H (0.7-1.3) mg/dL Est Cr Clr Drug Dosing 53.89 mL/min Estimated GFR (MDRD) 47 (>60) mL/min BUN/Creatinine Ratio 28.7 H (14-18) Glucose 89 (70-99) mg/dL POC Glucose 130 H 149 H (70-99) mg/dL Calcium 8.8 (8.5-10.1) mg/dL Total Bilirubin 0.7 (0.2-1.0) mg/dL Direct Bilirubin 0.30 H (0.0-0.2) mg/dl Indirect Bilirubin 0.40 AST 100 H (15-37) U/L ALT 288 H (16-63) U/L Alkaline Phosphatase 109 (46-116) U/L Total Protein 7.3 (6.4-8.2) g/dl Albumin 2.8 L (3.4-5.0) g/dl Globulin 4.5 gm/dL Albumin/Globulin Ratio 0.6 L (1-2) 07/22/21 07/22/21 07/22/21 Range/Units 06:11 06:11 11:17 WBC 15.28 H (4.23-9.07) K/mm3 RBC 5.29 (4.63-6.08) M/mm3 Hgb 16.5 (13.7-17.5) gm/dl Hct 48.7 (40.1-51.0) % MCV 92.1 (79.0-92.2) fl MCH 31.2 (25.7-32.2) pg MCHC 33.9 (32.2-35.5) g/dl RDW Std Deviation 44.8 H (35.1-43.9) fL Plt Count 280 (163-337) K/mm3 MPV 9.3 L (9.4-12.3) fl Neut % (Auto) 88.8 H (34.0-67.9) % Lymph % (Auto) 4.6 L (21.8-53.1) % Bee % (Auto) 4.5 L (5.3-12.2) % Eos % (Auto) 0 L (0.8-7.0) Baso % (Auto) 0.2 (0.1-1.2) % Neut # (Auto) 13.57 H (1.78-5.38) K/mm3 Lymph # (Auto) 0.71 L (1.32-3.57) K/mm3 Bee # (Auto) 0.68 (0.30-0.82) K/mm3 Eos # (Auto) 0.00 L (0.04-0.54) K/mm3 Baso # (Auto) 0.03 (0.01-0.08) K/mm3 Manual Slide Review Normal smear Sodium (136-145) mEq/L Potassium (3.5-5.1) mEq/L Chloride (98-107) mEq/L Carbon Dioxide (21-32) mEq/L Anion Gap (5-15) BUN (7-18) mg/dL Creatinine (0.7-1.3) mg/dL Est Cr Clr Drug Dosing mL/min Estimated GFR (MDRD) (>60) mL/min BUN/Creatinine Ratio (14-18) Glucose (70-99) mg/dL POC Glucose 78 182 H (70-99) mg/dL Calcium (8.5-10.1) mg/dL Total Bilirubin (0.2-1.0) mg/dL Direct Bilirubin (0.0-0.2) mg/dl Indirect Bilirubin AST (15-37) U/L ALT (16-63) U/L Alkaline Phosphatase (46-116) U/L Total Protein (6.4-8.2) g/dl Albumin (3.4-5.0) g/dl Globulin gm/dL Albumin/Globulin Ratio (1-2) Med Orders - Current: Current Medications Acetaminophen (Acetaminophen 325 Mg Tab) 650 mg PO Q4H PRN PRN Reason: Fever Greater Than 101 Last Admin: 07/21/21 19:55 Dose: 650 mg Documented by: Albuterol (Albuterol 6.7 Gm Inhaler) 1 - 2 gm INH Q4H PRN PRN Reason: Shortness of Breath Last Admin: 07/22/21 08:03 Dose: 2 puff Documented by: Allopurinol (Allopurinol 100 Mg Tab) 50 mg PO DAILY [facility] Last Admin: 07/22/21 10:19 Dose: Not Given Documented by: Azithromycin (Azithromycin 250 Mg Tab) 500 mg PO DAILY [facility] Stop: 07/25/21 09:46 Last Admin: 07/22/21 10:19 Dose: Not Given Documented by: Benzonatate (Benzonatate 100 Mg Cap) 100 - 200 mg PO Q8H PRN PRN Reason: Cough Last Admin: 07/20/21 20:27 Dose: 200 mg Documented by: Dexamethasone (Dexamethasone 10 Mg/Ml Sdv) 6 mg IVPUSH DAILY [facility] Stop: 07/27/21 09:01 Last Admin: 07/22/21 10:19 Dose: Not Given Documented by: Diltiazem HCl (Diltiazem 120 Mg Cap.Cd) 120 mg PO DAILY [facility] Last Admin: 07/22/21 10:19 Dose: Not Given Documented by: Enoxaparin Sodium (Enoxaparin 40 Mg/0.4 Ml Syringe) 40 mg SUBCUT DAILY [facility] Last Admin: 07/22/21 10:19 Dose: Not Given Documented by: Remdesivir 100 mg/ Sodium (Chloride) 100 mls @ 100 mls/hr IV Q24H [facility] Stop: 07/24/21 09:59 Last Admin: 07/22/21 09:23 Dose: 100 mls/hr Documented by: Insulin Human Lispro (Insulin Lispro 100 Unit/Ml 10 Ml Vial) 0 unit SUBCUT QID ACANDBED [facility]; Protocol Last Admin: 07/22/21 07:32 Dose: Not Given Documented by: Latanoprost (Latanoprost 0.005% Ophth Soln 2.5 Ml Bottle) 0 ml EYERT DAILY [facility] Last Admin: 07/22/21 10:20 Dose: Not Given Documented by: Levothyroxine Sodium (Levothyroxine 125 Mcg Tab) 125 mcg PO DAILY@0600 [facility] Last Admin: 07/22/21 07:31 Dose: 125 mcg Documented by: Losartan Potassium (Losartan 50 Mg Tab) 50 mg PO DAILY [facility] Last Admin: 07/22/21 10:19 Dose: Not Given Documented by: Oxycodone HCl (Oxycodone 5 Mg Tab) 5 mg PO Q4H PRN PRN Reason: back pain Pantoprazole Sodium (Pantoprazole 40 Mg Tab.Cr) 40 mg PO ACBREAKFAST [facility] Last Admin: 07/22/21 07:31 Dose: 40 mg Documented by: Rosuvastatin Calcium (Rosuvastatin 10 Mg Tab) 20 mg PO DAILY [facility] Last Admin: 07/22/21 10:19 Dose: Not Given Documented by: Sodium Chloride (Sodium Chloride 0.9% 10 Ml Syringe) 10 ml FLUSH ASDIRECTED PRN PRN Reason: Keep Vein Open Last Admin: 07/18/21 20:36 Dose: 10 ml Documented by: Tramadol HCl (Tramadol 50 Mg Tab) 50 - 100 mg PO Q6H PRN PRN Reason: pain Discontinued Medications Dexamethasone (Dexamethasone 10 Mg/Ml Sdv) 6 mg IVPUSH ONETIME ONE Stop: 07/18/21 21:41 Last Admin: 07/18/21 22:01 Dose: 6 mg Documented by: Ceftriaxone Sodium 2 gm/ (Sodium Chloride) 100 mls @ 200 mls/hr IV ONETIME ONE Stop: 07/18/21 22:09 Last Admin: 07/18/21 22:12 Dose: 200 mls/hr Documented by: Remdesivir 100 mg/ Sodium (Chloride) 100 mls @ 100 mls/hr IV Q24H [facility] Stop: 07/23/21 09:29 Remdesivir 200 mg/ Sodium (Chloride) 250 mls @ 250 mls/hr IV ONETIME ONE Stop: 07/20/21 09:40 Last Admin: 07/20/21 10:25 Dose: 250 mls/hr Documented by: - Exam Quality Assessment: Supplemental Oxygen (High flow nasal cannula, 55 L/min, 75% FiO2.) General: Alert, Oriented HEENT: Pupils Equal, Mucous Membr. Moist/[place] Neck: Supple Lungs: Crackles (Bibasilar worse than the left). No: Normal Respiratory Effort (Increased respiratory rate) Cardiovascular: Regular Rate, Regular Rhythm GI/Abdominal Exam: Normal Bowel Sounds, Soft, Non-Tender, No Organomegaly, No Distention Extremities: Normal Inspection, Normal Range of Motion, Non-Tender, No Pedal Edema Skin: Warm, Dry, Intact Psy/Mental Status: Alert, Normal Affect, Normal Mood - Patient Data Lab Results Last 24 hrs: Laboratory Results - last 24 hr 07/21/21 07/21/21 07/22/21 Range/Units 17:10 21:39 06:11 WBC (4.23-9.07) K/mm3 RBC (4.63-6.08) M/mm3 Hgb (13.7-17.5) gm/dl Hct (40.1-51.0) % MCV (79.0-92.2) fl MCH (25.7-32.2) pg MCHC (32.2-35.5) g/dl RDW Std Deviation (35.1-43.9) fL Plt Count (163-337) K/mm3 MPV (9.4-12.3) fl Neut % (Auto) (34.0-67.9) % Lymph % (Auto) (21.8-53.1) % Bee % (Auto) (5.3-12.2) % Eos % (Auto) (0.8-7.0) Baso % (Auto) (0.1-1.2) % Neut # (Auto) (1.78-5.38) K/mm3 Lymph # (Auto) (1.32-3.57) K/mm3 Bee # (Auto) (0.30-0.82) K/mm3 Eos # (Auto) (0.04-0.54) K/mm3 Baso # (Auto) (0.01-0.08) K/mm3 Manual Slide Review Sodium 138 (136-145) mEq/L Potassium 4.5 (3.5-5.1) mEq/L Chloride 103 (98-107) mEq/L Carbon Dioxide 24 (21-32) mEq/L Anion Gap 15.5 H (5-15) BUN 43 H (7-18) mg/dL Creatinine 1.5 H (0.7-1.3) mg/dL Est Cr Clr Drug Dosing 53.89 mL/min Estimated GFR (MDRD) 47 (>60) mL/min BUN/Creatinine Ratio 28.7 H (14-18) Glucose 89 (70-99) mg/dL POC Glucose 130 H 149 H (70-99) mg/dL Calcium 8.8 (8.5-10.1) mg/dL Total Bilirubin 0.7 (0.2-1.0) mg/dL Direct Bilirubin 0.30 H (0.0-0.2) mg/dl Indirect Bilirubin 0.40 AST 100 H (15-37) U/L ALT 288 H (16-63) U/L Alkaline Phosphatase 109 (46-116) U/L Total Protein 7.3 (6.4-8.2) g/dl Albumin 2.8 L (3.4-5.0) g/dl Globulin 4.5 gm/dL Albumin/Globulin Ratio 0.6 L (1-2) 07/22/21 07/22/21 07/22/21 Range/Units 06:11 06:11 11:17 WBC 15.28 H (4.23-9.07) K/mm3 RBC 5.29 (4.63-6.08) M/mm3 Hgb 16.5 (13.7-17.5) gm/dl Hct 48.7 (40.1-51.0) % MCV 92.1 (79.0-92.2) fl MCH 31.2 (25.7-32.2) pg MCHC 33.9 (32.2-35.5) g/dl RDW Std Deviation 44.8 H (35.1-43.9) fL Plt Count 280 (163-337) K/mm3 MPV 9.3 L (9.4-12.3) fl Neut % (Auto) 88.8 H (34.0-67.9) % Lymph % (Auto) 4.6 L (21.8-53.1) % Bee % (Auto) 4.5 L (5.3-12.2) % Eos % (Auto) 0 L (0.8-7.0) Baso % (Auto) 0.2 (0.1-1.2) % Neut # (Auto) 13.57 H (1.78-5.38) K/mm3 Lymph # (Auto) 0.71 L (1.32-3.57) K/mm3 Bee # (Auto) 0.68 (0.30-0.82) K/mm3 Eos # (Auto) 0.00 L (0.04-0.54) K/mm3 Baso # (Auto) 0.03 (0.01-0.08) K/mm3 Manual Slide Review Normal smear Sodium (136-145) mEq/L Potassium (3.5-5.1) mEq/L Chloride (98-107) mEq/L Carbon Dioxide (21-32) mEq/L Anion Gap (5-15) BUN (7-18) mg/dL Creatinine (0.7-1.3) mg/dL Est Cr Clr Drug Dosing mL/min Estimated GFR (MDRD) (>60) mL/min BUN/Creatinine Ratio (14-18) Glucose (70-99) mg/dL POC Glucose 78 182 H (70-99) mg/dL Calcium (8.5-10.1) mg/dL Total Bilirubin (0.2-1.0) mg/dL Direct Bilirubin (0.0-0.2) mg/dl Indirect Bilirubin AST (15-37) U/L ALT (16-63) U/L Alkaline Phosphatase (46-116) U/L Total Protein (6.4-8.2) g/dl Albumin (3.4-5.0) g/dl Globulin gm/dL Albumin/Globulin Ratio (1-2) Result Diagrams: 07/22/21 06:11 07/22/21 06:11 Sepsis Event Note - Evaluation Sepsis Screening Result: No Definite Risk - Focused Exam Vital Signs: Vital Signs Temp Pulse Pulse Resp BP BP Pulse Ox 07/22/21 12:00 97.8 F 64 26 H 114/51 L 92 L 07/22/21 08:04 07/22/21 07:51 144/76 H 07/22/21 07:50 61 144/76 H 07/22/21 07:36 98.0 F 61 20 144/76 H 89 L 07/22/21 04:00 97 F 16 124/66 94 L Pulse Ox 07/22/21 12:00 07/22/21 08:04 91 L 07/22/21 07:51 07/22/21 07:50 07/22/21 07:36 07/22/21 04:00 - Problem List & Annotations (1) Pneumonia due to COVID-19 virus SNOMED Code(s): 526576641322402993 Code(s): U07.1 - COVID-19; J12.82 - PNEUMONIA DUE TO CORONAVIRUS DISEASE 2018 Status: Acute Current Visit: Yes (2) Diabetes type 2, controlled SNOMED Code(s): 48740882, 568710322 Code(s): E11.9 - TYPE 2 DIABETES MELLITUS WITHOUT COMPLICATIONS Status: Acute Current Visit: Yes (3) HTN (hypertension) SNOMED Code(s): 40048048 Code(s): I10 - ESSENTIAL (PRIMARY) HYPERTENSION Status: Acute Current Visit: Yes - Problem List Review Problem List Initiated/Reviewed/Updated: Yes - My Orders Last 24 Hours: My Active Orders 07/21/21 Dinner ADA Diabetic [[place] [employer] Diet] [DIET] 07/22/21 10:39 traMADol [Ultram] 50 - 100 mg PO Q6H PRN - Plan Plan:: 66-year-old diabetic with COVID-19 presented to the emergency room with worsening shortness of breath. Acute hypoxemic respiratory failure due to COVID 19 pneumonia Continue with supportive care in the ICU. Continue with high flow oxygen and wean down oxygen flow rate as tolerated. . Encourage proning and use of the incentive spirometer Qhr Pneumonia due to COVID-19 -Hypoxemia requiring high flow nasal cannula -White count 15.3, -Continue Rocephin, dexamethasone, and baricitinib in the emergency department -Continue dexamethasone and baricitinib. Will add zithromax and Remdesivir. Acute kidney injury on chronic kidney injury. -Review of old records suggest baseline creatinine of 1.4 and estimated GFR of 51. -Initial GFR 47, creatinine 1. -Renally adjust medications Type 2 diabetes with diabetic nephropathy -hemoglobin A1c 5.8 -Continue home meds -Fingerstick blood sugar before every meal and at bedtime -Sliding scale insulin Hypertension, gout, hypothyroid, hyperlipidemia -Continue home meds -TSH 1.22 Obesity will need lifestyle modification changes. VTE prophylaxis with Lovenox CODE STATUS: Full code prognosis remains guarded. Pt may require intubation if his oxygenation worsens.
[2021-07-22] MEDS: traMADol 50 MG Tab PO PRN ×2 (13:12→20:27)
[2021-07-22] MEDS: Albuterol/Ipratropium 3.0-0.5 MG/3 ML Neb Soln NEB PRN (20:14)
[2021-07-23] MEDS: traMADol 50 MG Tab PO PRN (01:57)
[2021-07-23] MEDS: Pantoprazole 40 MG Tab.CR PO SCH (05:01)
[2021-07-23] MEDS: Levothyroxine 125 MCG Tab PO SCH (05:01)
[2021-07-23] MEDS: Albuterol 6.7 GM Inhaler INH PRN (05:03)
--- NOTE | 2021-07-23 07:07 | PCM.PN ---
- General Info Date of Service: 07/23/21 Admission Dx/Problem (Free Text): Admission Diagnosis/Problem Admission Diagnosis/Problem Hypoxia Subjective Update: Low after 4 this morning I was called with patient's respiratory rate in the mid 40s. Chest x-ray and D-dimer were added. D-dimer increased from 0.5-5. Chest x-ray showed no change. Full dose Lovenox was prescribed. Patient was placed on BiPAP to help with work of breathing. Oxygenation has been difficult to keep up over the last several hours. Currently, patient states he is feeling much better. Functional Status: Reports: Pain Controlled - Review of Systems General: Reports: Fatigue HEENT: Reports: No Symptoms Pulmonary: Reports: Shortness of Breath Cardiovascular: Reports: No Symptoms Gastrointestinal: Reports: No Symptoms - Patient Data Vitals - Most Recent: Last Vital Signs Temp 97.4 F 07/23/21 04:00 Pulse 67 07/22/21 15:50 Resp 34 H 07/23/21 04:58 BP 138/64 07/23/21 04:00 Pulse Ox 96 07/23/21 05:06 Weight - Most Recent: 235 lb 12.8 oz I&O - Last 24 Hours: Intake & Output 07/22/21 07/23/21 07/23/21 22:59 06:59 14:59 Intake Total 1600 800 Output Total 1200 1300 Balance 400 -500 Lab Results Last 24 Hours: Laboratory Results - last 24 hr 07/22/21 07/22/21 07/22/21 Range/Units 06:11 06:11 11:17 Manual Slide Review Normal smear Sodium 138 (136-145) mEq/L Potassium 4.5 (3.5-5.1) mEq/L Chloride 103 (98-107) mEq/L Carbon Dioxide 24 (21-32) mEq/L Anion Gap 15.5 H (5-15) BUN 43 H (7-18) mg/dL Creatinine 1.5 H (0.7-1.3) mg/dL Est Cr Clr Drug Dosing 53.89 mL/min Estimated GFR (MDRD) 47 (>60) mL/min BUN/Creatinine Ratio 28.7 H (14-18) Glucose 89 (70-99) mg/dL POC Glucose 182 H (70-99) mg/dL Calcium 8.8 (8.5-10.1) mg/dL Total Bilirubin 0.7 (0.2-1.0) mg/dL Direct Bilirubin 0.30 H (0.0-0.2) mg/dl Indirect Bilirubin 0.40 AST 100 H (15-37) U/L ALT 288 H (16-63) U/L Alkaline Phosphatase 109 (46-116) U/L Total Protein 7.3 (6.4-8.2) g/dl Albumin 2.8 L (3.4-5.0) g/dl Globulin 4.5 gm/dL Albumin/Globulin Ratio 0.6 L (1-2) 07/22/21 07/22/21 07/23/21 Range/Units 15:50 20:33 06:35 Manual Slide Review Sodium (136-145) mEq/L Potassium (3.5-5.1) mEq/L Chloride (98-107) mEq/L Carbon Dioxide (21-32) mEq/L Anion Gap (5-15) BUN (7-18) mg/dL Creatinine (0.7-1.3) mg/dL Est Cr Clr Drug Dosing mL/min Estimated GFR (MDRD) (>60) mL/min BUN/Creatinine Ratio (14-18) Glucose (70-99) mg/dL POC Glucose 117 H 108 H 79 (70-99) mg/dL Calcium (8.5-10.1) mg/dL Total Bilirubin (0.2-1.0) mg/dL Direct Bilirubin (0.0-0.2) mg/dl Indirect Bilirubin AST (15-37) U/L ALT (16-63) U/L Alkaline Phosphatase (46-116) U/L Total Protein (6.4-8.2) g/dl Albumin (3.4-5.0) g/dl Globulin gm/dL Albumin/Globulin Ratio (1-2) Med Orders - Current: Current Medications Acetaminophen (Acetaminophen 325 Mg Tab) 650 mg PO Q4H PRN PRN Reason: Fever Greater Than 101 Last Admin: 07/21/21 19:55 Dose: 650 mg Documented by: Albuterol (Albuterol 6.7 Gm Inhaler) 1 - 2 gm INH Q4H PRN PRN Reason: Shortness of Breath Last Admin: 07/23/21 05:03 Dose: 2 puff Documented by: Albuterol/Ipratropium (Albuterol/Ipratropium 3.0-0.5 Mg/3 Ml Neb Soln) 3 ml NEB Q4HRRT PRN PRN Reason: Shortness of Breath Last Admin: 07/22/21 20:14 Dose: 3 ml Documented by: Allopurinol (Allopurinol 100 Mg Tab) 50 mg PO DAILY [facility] Last Admin: 07/22/21 10:19 Dose: Not Given Documented by: Azithromycin (Azithromycin 250 Mg Tab) 500 mg PO DAILY [facility] Stop: 07/25/21 09:46 Last Admin: 07/22/21 10:19 Dose: Not Given Documented by: Benzonatate (Benzonatate 100 Mg Cap) 100 - 200 mg PO Q8H PRN PRN Reason: Cough Last Admin: 07/20/21 20:27 Dose: 200 mg Documented by: Dexamethasone (Dexamethasone 10 Mg/Ml Sdv) 6 mg IVPUSH DAILY [facility] Stop: 07/27/21 09:01 Last Admin: 07/22/21 10:19 Dose: Not Given Documented by: Diltiazem HCl (Diltiazem 120 Mg Cap.Cd) 120 mg PO DAILY [facility] Last Admin: 07/22/21 10:19 Dose: Not Given Documented by: Enoxaparin Sodium (Enoxaparin 40 Mg/0.4 Ml Syringe) 40 mg SUBCUT DAILY [facility] Last Admin: 07/22/21 10:19 Dose: Not Given Documented by: Insulin Human Lispro (Insulin Lispro 100 Unit/Ml 10 Ml Vial) 0 unit SUBCUT QIDACANDBED [facility]; Protocol Last Admin: 07/22/21 22:56 Dose: Not Given Documented by: Latanoprost (Latanoprost 0.005% Ophth Soln 2.5 Ml Bottle) 0 ml EYERT DAILY [facility] Last Admin: 07/22/21 10:20 Dose: Not Given Documented by: Levothyroxine Sodium (Levothyroxine 125 Mcg Tab) 125 mcg PO DAILY@0600 [facility] Last Admin: 07/23/21 05:01 Dose: 125 mcg Documented by: Losartan Potassium (Losartan 50 Mg Tab) 50 mg PO DAILY [facility] Last Admin: 07/22/21 10:19 Dose: Not Given Documented by: Oxycodone HCl (Oxycodone 5 Mg Tab) 5 mg PO Q4H PRN PRN Reason: back pain Pantoprazole Sodium (Pantoprazole 40 Mg Tab.Cr) 40 mg PO ACBREAKFAST [facility] Last Admin: 07/23/21 05:01 Dose: 40 mg Documented by: Rosuvastatin Calcium (Rosuvastatin 10 Mg Tab) 20 mg PO DAILY [facility] Last Admin: 07/22/21 10:19 Dose: Not Given Documented by: Sodium Chloride (Sodium Chloride 0.9% 10 Ml Syringe) 10 ml FLUSH ASDIRECTED PRN PRN Reason: Keep Vein Open Last Admin: 07/18/21 20:36 Dose: 10 ml Documented by: Tramadol HCl (Tramadol 50 Mg Tab) 50 - 100 mg PO Q6H PRN PRN Reason: pain Last Admin: 07/23/21 01:57 Dose: 100 mg Documented by: Discontinued Medications Dexamethasone (Dexamethasone 10 Mg/Ml Sdv) 6 mg IVPUSH ONETIME ONE Stop: 07/18/21 21:41 Last Admin: 07/18/21 22:01 Dose: 6 mg Documented by: Ceftriaxone Sodium 2 gm/ (Sodium Chloride) 100 mls @ 200 mls/hr IV ONETIME ONE Stop: 07/18/21 22:09 Last Admin: 07/18/21 22:12 Dose: 200 mls/hr Documented by: Remdesivir 100 mg/ Sodium (Chloride) 100 mls @ 100 mls/hr IV Q24H [facility] Stop: 07/23/21 09:29 Remdesivir 200 mg/ Sodium (Chloride) 250 mls @ 250 mls/hr IV ONETIME ONE Stop: 07/20/21 09:40 Last Admin: 07/20/21 10:25 Dose: 250 mls/hr Documented by: Remdesivir 100 mg/ Sodium (Chloride) 100 mls @ 100 mls/hr IV Q24H [facility] Stop: 07/24/21 09:59 Last Admin: 07/22/21 09:23 Dose: 100 mls/hr Documented by: - Exam Quality Assessment: Supplemental Oxygen (BiPAP 13/7 and 90% FiO2) General: Alert, Oriented HEENT: Pupils Equal, Mucous Membr. Moist/[place] Neck: Supple Lungs: Crackles (Throughout both lung bishop, worse in the bases). No: Normal Respiratory Effort (Increased respiratory rate and effort) Cardiovascular: Regular Rhythm, Tachycardia GI/Abdominal Exam: Normal Bowel Sounds, Soft, Non-Tender, No Distention Extremities: Normal Inspection, Normal Range of Motion, Non-Tender, No Pedal Edema, Normal Capillary Refill Skin: Warm, Dry, Intact - Patient Data Lab Results Last 24 hrs: Laboratory Results - last 24 hr 07/22/21 07/22/21 07/22/21 Range/Units 06:11 06:11 11:17 Manual Slide Review Normal smear Sodium 138 (136-145) mEq/L Potassium 4.5 (3.5-5.1) mEq/L Chloride 103 (98-107) mEq/L Carbon Dioxide 24 (21-32) mEq/L Anion Gap 15.5 H (5-15) BUN 43 H (7-18) mg/dL Creatinine 1.5 H (0.7-1.3) mg/dL Est Cr Clr Drug Dosing 53.89 mL/min Estimated GFR (MDRD) 47 (>60) mL/min BUN/Creatinine Ratio 28.7 H (14-18) Glucose 89 (70-99) mg/dL POC Glucose 182 H (70-99) mg/dL Calcium 8.8 (8.5-10.1) mg/dL Total Bilirubin 0.7 (0.2-1.0) mg/dL Direct Bilirubin 0.30 H (0.0-0.2) mg/dl Indirect Bilirubin 0.40 AST 100 H (15-37) U/L ALT 288 H (16-63) U/L Alkaline Phosphatase 109 (46-116) U/L Total Protein 7.3 (6.4-8.2) g/dl Albumin 2.8 L (3.4-5.0) g/dl Globulin 4.5 gm/dL Albumin/Globulin Ratio 0.6 L (1-2) 07/22/21 07/22/21 07/23/21 Range/Units 15:50 20:33 06:35 Manual Slide Review Sodium (136-145) mEq/L Potassium (3.5-5.1) mEq/L Chloride (98-107) mEq/L Carbon Dioxide (21-32) mEq/L Anion Gap (5-15) BUN (7-18) mg/dL Creatinine (0.7-1.3) mg/dL Est Cr Clr Drug Dosing mL/min Estimated GFR (MDRD) (>60) mL/min BUN/Creatinine Ratio (14-18) Glucose (70-99) mg/dL POC Glucose 117 H 108 H 79 (70-99) mg/dL Calcium (8.5-10.1) mg/dL Total Bilirubin (0.2-1.0) mg/dL Direct Bilirubin (0.0-0.2) mg/dl Indirect Bilirubin AST (15-37) U/L ALT (16-63) U/L Alkaline Phosphatase (46-116) U/L Total Protein (6.4-8.2) g/dl Albumin (3.4-5.0) g/dl Globulin gm/dL Albumin/Globulin Ratio (1-2) Result Diagrams: 07/23/21 06:30 07/23/21 06:30 Imaging Impressions Last 24 hrs: Chest x-ray consistent with Covid pneumonia. No change from previous chest x- ray. Sepsis Event Note - Evaluation Sepsis Screening Result: No Definite Risk - Focused Exam Vital Signs: Vital Signs Temp Resp BP Pulse Ox Pulse Ox Pulse Ox 07/23/21 05:06 96 07/23/21 05:03 96 07/23/21 04:58 34 H 07/23/21 04:55 93 L 07/23/21 04:00 97.4 F 40 H 138/64 95 07/23/21 00:00 97.0 F 26 H 124/53 L 89 L 07/22/21 20:15 88 L 07/22/21 20:00 97.2 F 22 H 118/59 L 91 L - Problem List & Annotations (1) Pneumonia due to COVID-19 virus SNOMED Code(s): 728090506607615127 Code(s): U07.1 - COVID-19; J12.82 - PNEUMONIA DUE TO CORONAVIRUS DISEASE 2019 Status: Acute Current Visit: Yes (2) Diabetes type 2, controlled SNOMED Code(s): 44566534, 182556691 Code(s): E11.9 - TYPE 2 DIABETES MELLITUS WITHOUT COMPLICATIONS Status: Acute Current Visit: Yes (3) HTN (hypertension) SNOMED Code(s): 57916859 Code(s): I10 - ESSENTIAL (PRIMARY) HYPERTENSION Status: Acute Current Visit: Yes - Problem List Review Problem List Initiated/Reviewed/Updated: Yes - My Orders Last 24 Hours: My Active Orders 07/22/21 10:39 traMADol [Ultram] 50 - 100 mg PO Q6H PRN 07/22/21 19:10 Albuterol/Ipratropium [DuoNeb 3.0-0.5 MG/3 ML] 3 ml NEB Q4HRRT PRN 07/22/21 19:11 RT Aerosol Therapy [RC] ASDIRECTED 07/23/21 04:30 Oxygen Therapy [RC] ASDIRECTED 07/23/21 05:11 CBC WITH AUTO DIFF [HEME] Routine COMPREHENSIVE METABOLIC PN,CMP [CHEM] Routine DD [D-DIMER QUANTITATIVE] [COAG] Routine MAGNESIUM [CHEM] Routine 07/23/21 05:42 Chest 1V Frontal [CR] Stat 07/24/21 05:11 C-REACTIVE PROTEIN [CHEM] AM CBC WITH AUTO DIFF [HEME] AM CMP [COMPREHENSIVE METABOLIC PN,CMP] [CHEM] AM DD [D-DIMER QUANTITATIVE] [COAG] AM MAGNESIUM [CHEM] AM PHOSPHORUS [CHEM] AM - Plan Plan:: 66-year-old diabetic with COVID-19 presented to the emergency room with worsening shortness of breath. Acute hypoxemic respiratory failure due to COVID 19 pneumonia -deteriorated Possible new onset PE. D-dimer increased from 0.5 to 5. Patient is not stable enough to get CTA at this time -Start Lovenox 1 mg/kg every 12 hours for therapeutic dosing. -Switch from high flow nasal cannula to BiPAP secondary to increased respiratory rate and work of breathing. -Continue with supportive care in the ICU. -Updated family about patient's condition. -Encourage proning and use of the incentive spirometer Qhr Pneumonia due to COVID-19 -Hypoxemia requiring high flow nasal cannula -White count 15.3, -Continue Rocephin, dexamethasone, and baricitinib in the emergency department -Continue dexamethasone and baricitinib. Will add zithromax Acute kidney injury on chronic kidney injury. -Review of old records suggest baseline creatinine of 1.4 and estimated GFR of 51. -Initial GFR 47, creatinine 1. -Renally adjust medications Type 2 diabetes with diabetic nephropathy -hemoglobin A1c 5.8 -Continue home meds -Fingerstick blood sugar before every meal and at bedtime -Sliding scale insulin Transaminitis -AST 87, ALT 234. Likely secondary to remdesivir and COVID-19. Hypertension, gout, hypothyroid, hyperlipidemia -Continue home meds -TSH 1.22 Obesity will need lifestyle modification changes. VTE prophylaxis with Lovenox CODE STATUS: Full code prognosis remains guarded. Pt may require intubation if his oxygenation worsens.
[2021-07-23] MEDS: Insulin Lispro 100 UNIT/ML 10 ML Vial SUBCUT SCH ×4 (08:05→21:41)
[2021-07-23] MEDS: Albuterol/Ipratropium 3.0-0.5 MG/3 ML Neb Soln NEB PRN ×3 (08:06→16:05)
--- NOTE | 2021-07-23 08:36 | CR ---
Chest: Frontal view of the chest was obtained. Comparison: Prior chest x-ray 07/18/21 and 03/21/21. Patchy areas of increased density are seen on both sides of the chest. Findings are felt to be fairly stable from most recent exam. Heart size and mediastinum are stable. No acute osseous finding is seen. Impression: 1. Diffuse increased density on both sides of the chest which appear stable from prior exam. Please correlate if patient has COVID pneumonia. 2. Nothing acute is otherwise seen from most recent chest x-ray. Diagnostic code #3
[2021-07-23] MEDS: Dexamethasone 10 MG/ML SDV IVPUSH SCH (09:16)
[2021-07-23] MEDS: Allopurinol 100 MG Tab PO SCH (09:19)
[2021-07-23] MEDS: Azithromycin 250 MG Tab PO SCH (09:20)
[2021-07-23] MEDS: Rosuvastatin 10 MG Tab PO SCH (09:21)
[2021-07-23] MEDS: Latanoprost 0.005% Ophth Soln 2.5 ML Bottle EYERT SCH (09:22)
[2021-07-23] MEDS: Diltiazem 120 MG Cap.CD PO SCH (09:22)
[2021-07-23] MEDS: Losartan 50 MG Tab PO SCH (09:22)
[2021-07-23] MEDS: Enoxaparin 100 MG/1 ML Syringe SUBCUT SCH ×2 (09:36→20:01)
[2021-07-23] MEDS: Empagliflozin 25 MG Tab PO SCH (11:24)
[2021-07-23] MEDS: guaiFENesin 600 MG Tab.ER PO SCH ×2 (11:31→20:01)
[2021-07-23] MEDS: Acetaminophen 325 MG Tab PO PRN (12:17)
[2021-07-23] MEDS: cefTRIAXone 2 GM in Sodium Chloride 0.9% 100 ML IV SCH (13:41)
[2021-07-23] MEDS ORDERED: Lidocaine 4% 1 each Patch TOP SCH (16:30)
[2021-07-23] MEDS: Lidocaine 4% 1 each Patch TOP SCH (16:39)
[2021-07-24] MEDS: Albuterol/Ipratropium 3.0-0.5 MG/3 ML Neb Soln NEB PRN ×5 (02:38→20:18)
[2021-07-24] MEDS: Pantoprazole 40 MG Tab.CR PO SCH (06:17)
[2021-07-24] MEDS: Levothyroxine 125 MCG Tab PO SCH (06:17)
[2021-07-24] MEDS: Acetaminophen 325 MG Tab PO PRN (06:21)
[2021-07-24] MEDS: Insulin Lispro 100 UNIT/ML 10 ML Vial SUBCUT SCH ×4 (08:26→22:29)
[2021-07-24] MEDS: Enoxaparin 100 MG/1 ML Syringe SUBCUT SCH ×2 (08:41→22:29)
[2021-07-24] MEDS: Dexamethasone 10 MG/ML SDV IVPUSH SCH (08:43)
[2021-07-24] MEDS: Rosuvastatin 10 MG Tab PO SCH (08:43)
[2021-07-24] MEDS: Diltiazem 120 MG Cap.CD PO SCH (08:44)
[2021-07-24] MEDS: Azithromycin 250 MG Tab PO SCH (08:44)
[2021-07-24] MEDS: guaiFENesin 600 MG Tab.ER PO SCH ×2 (08:44→22:29)
[2021-07-24] MEDS: Empagliflozin 25 MG Tab PO SCH (08:44)
[2021-07-24] MEDS: Losartan 50 MG Tab PO SCH (08:45)
[2021-07-24] MEDS: Allopurinol 100 MG Tab PO SCH (08:45)
[2021-07-24] MEDS: Latanoprost 0.005% Ophth Soln 2.5 ML Bottle EYERT SCH (08:46)
--- NOTE | 2021-07-24 12:14 | PCM.PN ---
- General Info Date of Service: 07/24/21 Admission Dx/Problem (Free Text): Admission Diagnosis/Problem Admission Diagnosis/Problem Hypoxia Subjective Update: Patient states he is feeling better. He is still on full maximal support with high flow nasal cannula at 60 L and FiO2 of 100. When he sits in the chair his oxygen saturations are often in the low 90s, but when he lays down they drop into the 80s. His tachypnea has significantly improved and now his respiratory rate is in the upper teens. Appetite is generally good, but yesterday it was decreased compared to the day before. Functional Status: Reports: Pain Controlled - Review of Systems General: Reports: Fatigue HEENT: Reports: No Symptoms Pulmonary: Reports: Shortness of Breath, Cough Cardiovascular: Reports: No Symptoms Musculoskeletal: Reports: Back Pain - Patient Data Vitals - Most Recent: Last Vital Signs Temp 97.8 F 07/24/21 12:00 Pulse 67 07/24/21 12:00 Resp 18 07/24/21 12:00 BP 100/64 07/24/21 12:00 Pulse Ox 92 L 07/24/21 12:00 Weight - Most Recent: 222 lb 8 oz I&O - Last 24 Hours: Intake & Output 07/23/21 07/24/21 07/24/21 22:59 06:59 14:59 Intake Total 1635 200 Output Total 1100 850 Balance 535 -650 Lab Results Last 24 Hours: Laboratory Results - last 24 hr 07/23/21 07/23/21 07/24/21 Range/Units 17:09 21:11 05:44 WBC 13.45 H (4.23-9.07) K/mm3 RBC 5.21 (4.63-6.08) M/mm3 Hgb 16.1 (13.7-17.5) gm/dl Hct 47.8 (40.1-51.0) % MCV 91.7 (79.0-92.2) fl MCH 30.9 (25.7-32.2) pg MCHC 33.7 (32.2-35.5) g/dl RDW Std Deviation 44.1 H (35.1-43.9) fL Plt Count 217 (163-337) K/mm3 MPV 9.1 L (9.4-12.3) fl Neut % (Auto) 91.7 H (34.0-67.9) % Lymph % (Auto) 3.0 L (21.8-53.1) % [place] % (Auto) 3.1 L (5.3-12.2) % Eos % (Auto) 0.7 L (0.8-7.0) Baso % (Auto) 0.1 (0.1-1.2) % Neut # (Auto) 12.32 H (1.78-5.38) K/mm3 Lymph # (Auto) 0.41 L (1.32-3.57) K/mm3 [place] # (Auto) 0.42 (0.30-0.82) K/mm3 Eos # (Auto) 0.10 (0.04-0.54) K/mm3 Baso # (Auto) 0.01 (0.01-0.08) K/mm3 Manual Slide Review Normal smear D-Dimer, Quantitative (0.19-0.50) mg/L Sodium (136-145) mEq/L Potassium (3.5-5.1) mEq/L Chloride (98-107) mEq/L Carbon Dioxide (21-32) mEq/L Anion Gap (5-15) BUN (7-18) mg/dL Creatinine (0.7-1.3) mg/dL Est Cr Clr Drug Dosing mL/min Estimated GFR (MDRD) (>60) mL/min BUN/Creatinine Ratio (14-18) Glucose (70-99) mg/dL POC Glucose 143 H 140 H (70-99) mg/dL Calcium (8.5-10.1) mg/dL Phosphorus (2.6-4.7) mg/dL Magnesium (1.8-2.4) mg/dL Total Bilirubin (0.2-1.0) mg/dL AST (15-37) U/L ALT (16-63) U/L Alkaline Phosphatase (46-116) U/L C-Reactive Protein (<1.0) mg/dL Total Protein (6.4-8.2) g/dl Albumin (3.4-5.0) g/dl Globulin gm/dL Albumin/Globulin Ratio (1-2) 07/24/21 07/24/21 07/24/21 Range/Units 05:44 05:44 08:01 WBC (4.23-9.07) K/mm3 RBC (4.63-6.08) M/mm3 Hgb (13.7-17.5) gm/dl Hct (40.1-51.0) % MCV (79.0-92.2) fl MCH (25.7-32.2) pg MCHC (32.2-35.5) g/dl RDW Std Deviation (35.1-43.9) fL Plt Count (163-337) K/mm3 MPV (9.4-12.3) fl Neut % (Auto) (34.0-67.9) % Lymph % (Auto) (21.8-53.1) % [place] % (Auto) (5.3-12.2) % Eos % (Auto) (0.8-7.0) Baso % (Auto) (0.1-1.2) % Neut # (Auto) (1.78-5.38) K/mm3 Lymph # (Auto) (1.32-3.57) K/mm3 [place] # (Auto) (0.30-0.82) K/mm3 Eos # (Auto) (0.04-0.54) K/mm3 Baso # (Auto) (0.01-0.08) K/mm3 Manual Slide Review D-Dimer, Quantitative 4.31 H (0.19-0.50) mg/L Sodium 136 (136-145) mEq/L Potassium 4.5 (3.5-5.1) mEq/L Chloride 101 (98-107) mEq/L Carbon Dioxide 24 (21-32) mEq/L Anion Gap 15.5 H (5-15) BUN 36 H (7-18) mg/dL Creatinine 1.6 H (0.7-1.3) mg/dL Est Cr Clr Drug Dosing 50.52 mL/min Estimated GFR (MDRD) 44 (>60) mL/min BUN/Creatinine Ratio 22.5 H (14-18) Glucose 95 (70-99) mg/dL POC Glucose 125 H (70-99) mg/dL Calcium 8.8 (8.5-10.1) mg/dL Phosphorus 3.7 (2.6-4.7) mg/dL Magnesium 2.5 H (1.8-2.4) mg/dL Total Bilirubin 0.7 (0.2-1.0) mg/dL AST 66 H (15-37) U/L ALT 174 H (16-63) U/L Alkaline Phosphatase 102 (46-116) U/L C-Reactive Protein 22.4 H* (<1.0) mg/dL Total Protein 7.6 (6.4-8.2) g/dl Albumin 2.7 L (3.4-5.0) g/dl Globulin 4.9 gm/dL Albumin/Globulin Ratio 0.6 L (1-2) 07/24/21 Range/Units 11:23 WBC (4.23-9.07) K/mm3 RBC (4.63-6.08) M/mm3 Hgb (13.7-17.5) gm/dl Hct (40.1-51.0) % MCV (79.0-92.2) fl MCH (25.7-32.2) pg MCHC (32.2-35.5) g/dl RDW Std Deviation (35.1-43.9) fL Plt Count (163-337) K/mm3 MPV (9.4-12.3) fl Neut % (Auto) (34.0-67.9) % Lymph % (Auto) (21.8-53.1) % [place] % (Auto) (5.3-12.2) % Eos % (Auto) (0.8-7.0) Baso % (Auto) (0.1-1.2) % Neut # (Auto) (1.78-5.38) K/mm3 Lymph # (Auto) (1.32-3.57) K/mm3 [place] # (Auto) (0.30-0.82) K/mm3 Eos # (Auto) (0.04-0.54) K/mm3 Baso # (Auto) (0.01-0.08) K/mm3 Manual Slide Review D-Dimer, Quantitative (0.19-0.50) mg/L Sodium (136-145) mEq/L Potassium (3.5-5.1) mEq/L Chloride (98-107) mEq/L Carbon Dioxide (21-32) mEq/L Anion Gap (5-15) BUN (7-18) mg/dL Creatinine (0.7-1.3) mg/dL Est Cr Clr Drug Dosing mL/min Estimated GFR (MDRD) (>60) mL/min BUN/Creatinine Ratio (14-18) Glucose (70-99) mg/dL POC Glucose 112 H (70-99) mg/dL Calcium (8.5-10.1) mg/dL Phosphorus (2.6-4.7) mg/dL Magnesium (1.8-2.4) mg/dL Total Bilirubin (0.2-1.0) mg/dL AST (15-37) U/L ALT (16-63) U/L Alkaline Phosphatase (46-116) U/L C-Reactive Protein (<1.0) mg/dL Total Protein (6.4-8.2) g/dl Albumin (3.4-5.0) g/dl Globulin gm/dL Albumin/Globulin Ratio (1-2) Med Orders - Current: Current Medications Acetaminophen (Acetaminophen 325 Mg Tab) 650 mg PO Q4H PRN PRN Reason: Fever Greater Than 101 Last Admin: 07/24/21 06:21 Dose: 650 mg Documented by: Albuterol (Albuterol 6.7 Gm Inhaler) 1 - 2 gm INH Q4H PRN PRN Reason: Shortness of Breath Last Admin: 07/23/21 05:03 Dose: 2 puff Documented by: Albuterol/Ipratropium (Albuterol/Ipratropium 3.0-0.5 Mg/3 Ml Neb Soln) 3 ml NEB Q4HRRT PRN PRN Reason: Shortness of Breath Last Admin: 07/24/21 07:44 Dose: 3 ml Documented by: Allopurinol (Allopurinol 100 Mg Tab) 50 mg PO DAILY [facility] Last Admin: 07/24/21 08:45 Dose: 50 mg Documented by: Azithromycin (Azithromycin 250 Mg Tab) 500 mg PO DAILY [facility] Stop: 07/25/21 09:46 Last Admin: 07/24/21 08:44 Dose: 500 mg Documented by: Benzonatate (Benzonatate 100 Mg Cap) 100 - 200 mg PO Q8H PRN PRN Reason: Cough Last Admin: 07/20/21 20:27 Dose: 200 mg Documented by: Dexamethasone (Dexamethasone 10 Mg/Ml Sdv) 6 mg IVPUSH DAILY [facility] Stop: 07/27/21 09:01 Last Admin: 07/24/21 08:43 Dose: 6 mg Documented by: Diltiazem HCl (Diltiazem 120 Mg Cap.Cd) 120 mg PO DAILY [facility] Last Admin: 07/24/21 08:44 Dose: 120 mg Documented by: Enoxaparin Sodium (Enoxaparin 100 Mg/1 Ml Syringe) 100 mg SUBCUT Q12H [facility] Last Admin: 07/24/21 08:41 Dose: 100 mg Documented by: Guaifenesin (Guaifenesin 600 Mg Tab.Er) 600 mg PO BID [facility] Last Admin: 07/24/21 08:44 Dose: 600 mg Documented by: Ceftriaxone Sodium 2 gm/ (Sodium Chloride) 100 mls @ 200 mls/hr IV Q24H [facility] Last Admin: 07/23/21 13:41 Dose: 200 mls/hr Documented by: Insulin Human Lispro (Insulin Lispro 100 Unit/Ml 10 Ml Vial) 0 unit SUBCUT QIDACANDBED [facility]; Protocol Last Admin: 07/24/21 11:41 Dose: Not Given Documented by: Latanoprost (Latanoprost 0.005% Ophth Soln 2.5 Ml Bottle) 0 ml EYERT DAILY [facility] Last Admin: 07/24/21 08:46 Dose: 1 drop Documented by: Levothyroxine Sodium (Levothyroxine 125 Mcg Tab) 125 mcg PO DAILY@0600 [facility] Last Admin: 07/24/21 06:17 Dose: 125 mcg Documented by: Lidocaine (Lidocaine 4% 1 Each Patch) 1 each TOP Q24H [facility] Last Admin: 07/23/21 16:39 Dose: 1 each Documented by: Losartan Potassium (Losartan 50 Mg Tab) 50 mg PO DAILY [facility] Last Admin: 07/24/21 08:45 Dose: 50 mg Documented by: Miscellaneous Information (Remove Patch) 0 ea TRDERM Q24H [facility] Last Admin: 07/24/21 05:20 Dose: Not Given Documented by: Oxycodone HCl (Oxycodone 5 Mg Tab) 5 mg PO Q4H PRN PRN Reason: back pain Pantoprazole Sodium (Pantoprazole 40 Mg Tab.Cr) 40 mg PO ACBREAKFAST [facility] Last Admin: 07/24/21 06:17 Dose: 40 mg Documented by: Rosuvastatin Calcium (Rosuvastatin 10 Mg Tab) 20 mg PO DAILY [facility] Last Admin: 07/24/21 08:43 Dose: 20 mg Documented by: Sodium Chloride (Sodium Chloride 0.9% 10 Ml Syringe) 10 ml FLUSH ASDIRECTED PRN PRN Reason: Keep Vein Open Last Admin: 07/18/21 20:36 Dose: 10 ml Documented by: Tramadol HCl (Tramadol 50 Mg Tab) 50 - 100 mg PO Q6H PRN PRN Reason: pain Last Admin: 07/23/21 01:57 Dose: 100 mg Documented by: Discontinued Medications Dexamethasone (Dexamethasone 10 Mg/Ml Sdv) 6 mg IVPUSH ONETIME ONE Stop: 07/18/21 21:41 Last Admin: 07/18/21 22:01 Dose: 6 mg Documented by: Enoxaparin Sodium (Enoxaparin 40 Mg/0.4 Ml Syringe) 40 mg SUBCUT DAILY [facility] Last Admin: 07/22/21 10:19 Dose: Not Given Documented by: Ceftriaxone Sodium 2 gm/ (Sodium Chloride) 100 mls @ 200 mls/hr IV ONETIME ONE Stop: 07/18/21 22:09 Last Admin: 07/18/21 22:12 Dose: 200 mls/hr Documented by: Remdesivir 100 mg/ Sodium (Chloride) 100 mls @ 100 mls/hr IV Q24H [place] Stop: 07/23/21 09:29 Remdesivir 200 mg/ Sodium (Chloride) 250 mls @ 250 mls/hr IV ONETIME ONE Stop: 07/20/21 09:40 Last Admin: 07/20/21 10:25 Dose: 250 mls/hr Documented by: Remdesivir 100 mg/ Sodium (Chloride) 100 mls @ 100 mls/hr IV Q24H [place] Stop: 07/24/21 09:59 Last Admin: 07/22/21 09:23 Dose: 100 mls/hr Documented by: Lidocaine (Lidocaine 4% 1 Each Patch) 1 each TOP Q24H [facility] Last Admin: 07/23/21 16:37 Dose: 1 each Documented by: - Exam Quality Assessment: Supplemental Oxygen General: Alert HEENT: Pupils Equal, Mucous Membr. Moist/[place] Neck: Supple Lungs: Crackles (Bibasilar). No: Normal Respiratory Effort (Mild increased effort) GI/Abdominal Exam: Normal Bowel Sounds, Soft, Non-Tender, No Distention Extremities: Normal Inspection, Normal Range of Motion, Non-Tender, No Pedal Edema, Normal Capillary Refill Psy/Mental Status: Alert, Normal Affect, Normal Mood - Patient Data Lab Results Last 24 hrs: Laboratory Results - last 24 hr 07/23/21 07/23/21 07/24/21 Range/Units 17:09 21:11 05:44 WBC 13.45 H (4.23-9.07) K/mm3 RBC 5.21 (4.63-6.08) M/mm3 Hgb 16.1 (13.7-17.5) gm/dl Hct 47.8 (40.1-51.0) % MCV 91.7 (79.0-92.2) fl MCH 30.9 (25.7-32.2) pg MCHC 33.7 (32.2-35.5) g/dl RDW Std Deviation 44.1 H (35.1-43.9) fL Plt Count 217 (163-337) K/mm3 MPV 9.1 L (9.4-12.3) fl Neut % (Auto) 91.7 H (34.0-67.9) % Lymph % (Auto) 3.0 L (21.8-53.1) % [place] % (Auto) 3.1 L (5.3-12.2) % Eos % (Auto) 0.7 L (0.8-7.0) Baso % (Auto) 0.1 (0.1-1.2) % Neut # (Auto) 12.32 H (1.78-5.38) K/mm3 Lymph # (Auto) 0.41 L (1.32-3.57) K/mm3 [place] # (Auto) 0.42 (0.30-0.82) K/mm3 Eos # (Auto) 0.10 (0.04-0.54) K/mm3 Baso # (Auto) 0.01 (0.01-0.08) K/mm3 Manual Slide Review Normal smear D-Dimer, Quantitative (0.19-0.50) mg/L Sodium (136-145) mEq/L Potassium (3.5-5.1) mEq/L Chloride (98-107) mEq/L Carbon Dioxide (21-32) mEq/L Anion Gap (5-15) BUN (7-18) mg/dL Creatinine (0.7-1.3) mg/dL Est Cr Clr Drug Dosing mL/min Estimated GFR (MDRD) (>60) mL/min BUN/Creatinine Ratio (14-18) Glucose (70-99) mg/dL POC Glucose 143 H 140 H (70-99) mg/dL Calcium (8.5-10.1) mg/dL Phosphorus (2.6-4.7) mg/dL Magnesium (1.8-2.4) mg/dL Total Bilirubin (0.2-1.0) mg/dL AST (15-37) U/L ALT (16-63) U/L Alkaline Phosphatase (46-116) U/L C-Reactive Protein (<1.0) mg/dL Total Protein (6.4-8.2) g/dl Albumin (3.4-5.0) g/dl Globulin gm/dL Albumin/Globulin Ratio (1-2) 07/24/21 07/24/21 07/24/21 Range/Units 05:44 05:44 08:01 WBC (4.23-9.07) K/mm3 RBC (4.63-6.08) M/mm3 Hgb (13.7-17.5) gm/dl Hct (40.1-51.0) % MCV (79.0-92.2) fl MCH (25.7-32.2) pg MCHC (32.2-35.5) g/dl RDW Std Deviation (35.1-43.9) fL Plt Count (163-337) K/mm3 MPV (9.4-12.3) fl Neut % (Auto) (34.0-67.9) % Lymph % (Auto) (21.8-53.1) % [place] % (Auto) (5.3-12.2) % Eos % (Auto) (0.8-7.0) Baso % (Auto) (0.1-1.2) % Neut # (Auto) (1.78-5.38) K/mm3 Lymph # (Auto) (1.32-3.57) K/mm3 [place] # (Auto) (0.30-0.82) K/mm3 Eos # (Auto) (0.04-0.54) K/mm3 Baso # (Auto) (0.01-0.08) K/mm3 Manual Slide Review D-Dimer, Quantitative 4.31 H (0.19-0.50) mg/L Sodium 136 (136-145) mEq/L Potassium 4.5 (3.5-5.1) mEq/L Chloride 101 (98-107) mEq/L Carbon Dioxide 24 (21-32) mEq/L Anion Gap 15.5 H (5-15) BUN 36 H (7-18) mg/dL Creatinine 1.6 H (0.7-1.3) mg/dL Est Cr Clr Drug Dosing 50.52 mL/min Estimated GFR (MDRD) 44 (>60) mL/min BUN/Creatinine Ratio 22.5 H (14-18) Glucose 95 (70-99) mg/dL POC Glucose 125 H (70-99) mg/dL Calcium 8.8 (8.5-10.1) mg/dL Phosphorus 3.7 (2.6-4.7) mg/dL Magnesium 2.5 H (1.8-2.4) mg/dL Total Bilirubin 0.7 (0.2-1.0) mg/dL AST 66 H (15-37) U/L ALT 174 H (16-63) U/L Alkaline Phosphatase 102 (46-116) U/L C-Reactive Protein 22.4 H* (<1.0) mg/dL Total Protein 7.6 (6.4-8.2) g/dl Albumin 2.7 L (3.4-5.0) g/dl Globulin 4.9 gm/dL Albumin/Globulin Ratio 0.6 L (1-2) 07/24/21 Range/Units 11:23 WBC (4.23-9.07) K/mm3 RBC (4.63-6.08) M/mm3 Hgb (13.7-17.5) gm/dl Hct (40.1-51.0) % MCV (79.0-92.2) fl MCH (25.7-32.2) pg MCHC (32.2-35.5) g/dl RDW Std Deviation (35.1-43.9) fL Plt Count (163-337) K/mm3 MPV (9.4-12.3) fl Neut % (Auto) (34.0-67.9) % Lymph % (Auto) (21.8-53.1) % [place] % (Auto) (5.3-12.2) % Eos % (Auto) (0.8-7.0) Baso % (Auto) (0.1-1.2) % Neut # (Auto) (1.78-5.38) K/mm3 Lymph # (Auto) (1.32-3.57) K/mm3 [place] # (Auto) (0.30-0.82) K/mm3 Eos # (Auto) (0.04-0.54) K/mm3 Baso # (Auto) (0.01-0.08) K/mm3 Manual Slide Review D-Dimer, Quantitative (0.19-0.50) mg/L Sodium (136-145) mEq/L Potassium (3.5-5.1) mEq/L Chloride (98-107) mEq/L Carbon Dioxide (21-32) mEq/L Anion Gap (5-15) BUN (7-18) mg/dL Creatinine (0.7-1.3) mg/dL Est Cr Clr Drug Dosing mL/min Estimated GFR (MDRD) (>60) mL/min BUN/Creatinine Ratio (14-18) Glucose (70-99) mg/dL POC Glucose 112 H (70-99) mg/dL Calcium (8.5-10.1) mg/dL Phosphorus (2.6-4.7) mg/dL Magnesium (1.8-2.4) mg/dL Total Bilirubin (0.2-1.0) mg/dL AST (15-37) U/L ALT (16-63) U/L Alkaline Phosphatase (46-116) U/L C-Reactive Protein (<1.0) mg/dL Total Protein (6.4-8.2) g/dl Albumin (3.4-5.0) g/dl Globulin gm/dL Albumin/Globulin Ratio (1-2) Result Diagrams: 07/24/21 05:44 07/24/21 05:44 Sepsis Event Note - Evaluation Sepsis Screening Result: Possible Sepsis Risk - Focused Exam Vital Signs: Vital Signs Temp Pulse Pulse Resp BP BP BP 07/24/21 12:00 97.8 F 67 18 100/64 07/24/21 09:22 07/24/21 08:45 127/71 07/24/21 08:44 87 127/71 07/24/21 08:00 98.7 F 85 24 H 127/71 07/24/21 07:44 07/24/21 04:00 98.5 F 22 H 130/72 07/24/21 02:44 Pulse Ox Pulse Ox Pulse Ox 07/24/21 12:00 92 L 07/24/21 09:22 91 L 07/24/21 08:45 07/24/21 08:44 07/24/21 08:00 89 L 07/24/21 07:44 91 L 07/24/21 04:00 94 L 07/24/21 02:44 92 L - Problem List & Annotations (1) Pneumonia due to COVID-19 virus SNOMED Code(s): 615657948653178736 Code(s): U07.1 - COVID-19; J12.82 - PNEUMONIA DUE TO CORONAVIRUS DISEASE 2019 Status: Acute Current Visit: Yes (2) Diabetes type 2, controlled SNOMED Code(s): 58625786, 459105680 Code(s): E11.9 - TYPE 2 DIABETES MELLITUS WITHOUT COMPLICATIONS Status: Acute Current Visit: Yes (3) HTN (hypertension) SNOMED Code(s): 53896040 Code(s): I10 - ESSENTIAL (PRIMARY) HYPERTENSION Status: Acute Current Visit: Yes - Problem List Review Problem List Initiated/Reviewed/Updated: Yes - My Orders Last 24 Hours: My Active Orders 07/23/21 13:00 cefTRIAXone [Rocephin] 2 gm Sodium Chloride 0.9% [Normal Saline] 100 ml IV Q24H 07/23/21 16:30 Lidocaine 4% [Aspercreme 4%] 1 each TOP Q24H 07/24/21 04:30 Remove Patch 0 ea TRDERM Q24H 07/24/21 05:44 PROCALCITONIN [REF] Routine 07/25/21 05:11 C-REACTIVE PROTEIN [CHEM] AM CBC WITH AUTO DIFF [HEME] AM CMP [COMPREHENSIVE METABOLIC PN,CMP] [CHEM] AM DD [D-DIMER QUANTITATIVE] [COAG] AM MAGNESIUM [CHEM] AM PHOSPHORUS [CHEM] AM 07/26/21 05:11 C-REACTIVE PROTEIN [CHEM] AM CBC WITH AUTO DIFF [HEME] AM CMP [COMPREHENSIVE METABOLIC PN,CMP] [CHEM] AM DD [D-DIMER QUANTITATIVE] [COAG] AM MAGNESIUM [CHEM] AM PHOSPHORUS [CHEM] AM 07/27/21 05:11 C-REACTIVE PROTEIN [CHEM] AM CBC WITH AUTO DIFF [HEME] AM CMP [COMPREHENSIVE METABOLIC PN,CMP] [CHEM] AM DD [D-DIMER QUANTITATIVE] [COAG] AM MAGNESIUM [CHEM] AM PHOSPHORUS [CHEM] AM - Plan Plan:: 66-year-old diabetic with COVID-19 presented to the emergency room with wor sening shortness of breath. Acute hypoxemic respiratory failure due to COVID 19 pneumonia -deteriorated Possible new onset PE. D-dimer increased from 0.5 to 5. Patient is not stable enough to get CTA at this time -CRP increased from 7-22 -Lovenox 1 mg/kg every 12 hours for therapeutic dosing. -Alternate high flow nasal cannula and BiPAP secondary to increased respiratory rate and work of breathing. -Continue with supportive care in the ICU. -Encourage proning and use of the incentive spirometer Pneumonia due to COVID-19 -Hypoxemia requiring high flow nasal cannula -White count 15.3, -Continue Rocephin, dexamethasone, and baricitinib in the emergency department -Continue dexamethasone and baricitinib. Will add zithromax Acute kidney injury on chronic kidney injury. -Review of old records suggest baseline creatinine of 1.4 and estimated GFR of 51. -Initial GFR 47, creatinine 1. -Creatinine up a little bit today at 1.6 -Renally adjust medications Type 2 diabetes with diabetic nephropathy -hemoglobin A1c 5.8 -Continue home meds -Fingerstick blood sugar before every meal and at bedtime -Sliding scale insulin Transaminitisimproved -AST 66, ALT 174. Likely secondary to remdesivir and COVID-19. Hypertension, gout, hypothyroid, hyperlipidemia -Continue home meds -TSH 1.22 Obesity will need lifestyle modification changes. VTE prophylaxis with Lovenox CODE STATUS: Full code prognosis remains guarded. Pt may require intubation if his oxygenation worsens.
[2021-07-24] MEDS: cefTRIAXone 2 GM in Sodium Chloride 0.9% 100 ML IV SCH (12:47)
[2021-07-24] MEDS: Lidocaine 4% 1 each Patch TOP SCH (17:24)
[2021-07-25] MEDS: Albuterol 6.7 GM Inhaler INH PRN (03:54)
[2021-07-25] MEDS: Albuterol/Ipratropium 3.0-0.5 MG/3 ML Neb Soln NEB PRN ×5 (05:46→23:49)
[2021-07-25] MEDS: Pantoprazole 40 MG Tab.CR PO SCH (07:03)
[2021-07-25] MEDS: Levothyroxine 125 MCG Tab PO SCH (07:03)
[2021-07-25] MEDS: Insulin Lispro 100 UNIT/ML 10 ML Vial SUBCUT SCH ×4 (07:04→21:08)
--- NOTE | 2021-07-25 08:59 | PCM.PN ---
- General Info Date of Service: 07/25/21 Admission Dx/Problem (Free Text): Admission Diagnosis/Problem Admission Diagnosis/Problem Hypoxia Subjective Update: Patient had 2 episodes of hypoxia today. First when he woke up from a bad dream and he could not catch his breath. Second 1 he was being switched from high flow nasal cannula to BiPAP and within a short time his oxygen saturations dropped down into the 20s. I was called to his room, sat him up in bed since this appears to be the best position for him, and his oxygen saturations on BiPAP at 100% increased to the mid 90s after couple minutes. Patient was comfortable after that and remains so through the early afternoon. Functional Status: Reports: Tolerating Diet - Review of Systems General: Reports: Weakness, Fatigue Pulmonary: Reports: Shortness of Breath, Cough Cardiovascular: Reports: Dyspnea on Exertion, Lightheadedness Gastrointestinal: Reports: No Symptoms - Patient Data Vitals - Most Recent: Last Vital Signs Temp 98.1 F 07/25/21 04:19 Pulse 88 07/25/21 04:19 Resp 28 H 07/25/21 04:19 BP 148/81 H 07/25/21 04:19 Pulse Ox 92 L 07/25/21 08:39 Weight - Most Recent: 232 lb I&O - Last 24 Hours: Intake & Output 07/24/21 07/25/21 07/25/21 22:59 06:59 14:59 Intake Total 625 1350 Output Total 600 775 Balance 25 575 Lab Results Last 24 Hours: Laboratory Results - last 24 hr 07/24/21 07/24/21 07/24/21 Range/Units 05:44 11:23 17:00 WBC (4.23-9.07) K/mm3 RBC (4.63-6.08) M/mm3 Hgb (13.7-17.5) gm/dl Hct (40.1-51.0) % MCV (79.0-92.2) fl MCH (25.7-32.2) pg MCHC (32.2-35.5) g/dl RDW Std Deviation (35.1-43.9) fL Plt Count (163-337) K/mm3 MPV (9.4-12.3) fl Neut % (Auto) (34.0-67.9) % Lymph % (Auto) (21.8-53.1) % Republic % (Auto) (5.3-12.2) % Eos % (Auto) (0.8-7.0) Baso % (Auto) (0.1-1.2) % Neut # (Auto) (1.78-5.38) K/mm3 Lymph # (Auto) (1.32-3.57) K/mm3 Republic # (Auto) (0.30-0.82) K/mm3 Eos # (Auto) (0.04-0.54) K/mm3 Baso # (Auto) (0.01-0.08) K/mm3 Manual Slide Review Sodium (136-145) mEq/L Potassium (3.5-5.1) mEq/L Chloride (98-107) mEq/L Carbon Dioxide (21-32) mEq/L Anion Gap (5-15) BUN (7-18) mg/dL Creatinine (0.7-1.3) mg/dL Est Cr Clr Drug Dosing mL/min Estimated GFR (MDRD) (>60) mL/min BUN/Creatinine Ratio (14-18) Glucose (70-99) mg/dL POC Glucose 112 H 131 H (70-99) mg/dL Calcium (8.5-10.1) mg/dL Phosphorus (2.6-4.7) mg/dL Magnesium (1.8-2.4) mg/dL Total Bilirubin (0.2-1.0) mg/dL AST (15-37) U/L ALT (16-63) U/L Alkaline Phosphatase (46-116) U/L C-Reactive Protein (<1.0) mg/dL Total Protein (6.4-8.2) g/dl Albumin (3.4-5.0) g/dl Globulin gm/dL Albumin/Globulin Ratio (1-2) Procalcitonin 0.92 H ng/mL 07/24/21 07/25/21 07/25/21 Range/Units 22:25 05:04 05:04 WBC 20.08 H (4.23-9.07) K/mm3 RBC 5.00 (4.63-6.08) M/mm3 Hgb 15.5 (13.7-17.5) gm/dl Hct 45.6 (40.1-51.0) % MCV 91.2 (79.0-92.2) fl MCH 31.0 (25.7-32.2) pg MCHC 34.0 (32.2-35.5) g/dl RDW Std Deviation 44.3 H (35.1-43.9) fL Plt Count 286 (163-337) K/mm3 MPV 9.4 (9.4-12.3) fl Neut % (Auto) 92.2 H (34.0-67.9) % Lymph % (Auto) 2.6 L (21.8-53.1) % Republic % (Auto) 2.8 L (5.3-12.2) % Eos % (Auto) 1.1 (0.8-7.0) Baso % (Auto) 0.1 (0.1-1.2) % Neut # (Auto) 18.49 H (1.78-5.38) K/mm3 Lymph # (Auto) 0.52 L (1.32-3.57) K/mm3 Republic # (Auto) 0.57 (0.30-0.82) K/mm3 Eos # (Auto) 0.23 (0.04-0.54) K/mm3 Baso # (Auto) 0.02 (0.01-0.08) K/mm3 Manual Slide Review Abnormal smear Sodium 135 L (136-145) mEq/L Potassium 4.5 (3.5-5.1) mEq/L Chloride 101 (98-107) mEq/L Carbon Dioxide 20 L (21-32) mEq/L Anion Gap 18.5 H (5-15) BUN 47 H (7-18) mg/dL Creatinine 1.9 H (0.7-1.3) mg/dL Est Cr Clr Drug Dosing 42.54 mL/min Estimated GFR (MDRD) 36 (>60) mL/min BUN/Creatinine Ratio 24.7 H (14-18) Glucose 89 (70-99) mg/dL POC Glucose 115 H (70-99) mg/dL Calcium 8.9 (8.5-10.1) mg/dL Phosphorus 3.5 (2.6-4.7) mg/dL Magnesium 2.6 H (1.8-2.4) mg/dL Total Bilirubin 0.7 (0.2-1.0) mg/dL AST 55 H (15-37) U/L ALT 132 H (16-63) U/L Alkaline Phosphatase 98 (46-116) U/L C-Reactive Protein 17.4 H* (<1.0) mg/dL Total Protein 7.8 (6.4-8.2) g/dl Albumin 2.7 L (3.4-5.0) g/dl Globulin 5.1 gm/dL Albumin/Globulin Ratio 0.5 L (1-2) Procalcitonin ng/mL 07/25/21 Range/Units 07:00 WBC (4.23-9.07) K/mm3 RBC (4.63-6.08) M/mm3 Hgb (13.7-17.5) gm/dl Hct (40.1-51.0) % MCV (79.0-92.2) fl MCH (25.7-32.2) pg MCHC (32.2-35.5) g/dl RDW Std Deviation (35.1-43.9) fL Plt Count (163-337) K/mm3 MPV (9.4-12.3) fl Neut % (Auto) (34.0-67.9) % Lymph % (Auto) (21.8-53.1) % Republic % (Auto) (5.3-12.2) % Eos % (Auto) (0.8-7.0) Baso % (Auto) (0.1-1.2) % Neut # (Auto) (1.78-5.38) K/mm3 Lymph # (Auto) (1.32-3.57) K/mm3 Republic # (Auto) (0.30-0.82) K/mm3 Eos # (Auto) (0.04-0.54) K/mm3 Baso # (Auto) (0.01-0.08) K/mm3 Manual Slide Review Sodium (136-145) mEq/L Potassium (3.5-5.1) mEq/L Chloride (98-107) mEq/L Carbon Dioxide (21-32) mEq/L Anion Gap (5-15) BUN (7-18) mg/dL Creatinine (0.7-1.3) mg/dL Est Cr Clr Drug Dosing mL/min Estimated GFR (MDRD) (>60) mL/min BUN/Creatinine Ratio (14-18) Glucose (70-99) mg/dL POC Glucose 82 (70-99) mg/dL Calcium (8.5-10.1) mg/dL Phosphorus (2.6-4.7) mg/dL Magnesium (1.8-2.4) mg/dL Total Bilirubin (0.2-1.0) mg/dL AST (15-37) U/L ALT (16-63) U/L Alkaline Phosphatase (46-116) U/L C-Reactive Protein (<1.0) mg/dL Total Protein (6.4-8.2) g/dl Albumin (3.4-5.0) g/dl Globulin gm/dL Albumin/Globulin Ratio (1-2) Procalcitonin ng/mL [facility] Results Last 24 Hours: Microbiology 07/18/21 22:00 Blood Culture - Final Blood - Venous - Lab Draw 07/18/21 22:10 Blood Culture - Final Blood - Venous Med Orders - Current: Current Medications Acetaminophen (Acetaminophen 325 Mg Tab) 650 mg PO Q4H PRN PRN Reason: Fever Greater Than 101 Last Admin: 07/24/21 06:21 Dose: 650 mg Documented by: Albuterol (Albuterol 6.7 Gm Inhaler) 1 - 2 gm INH Q4H PRN PRN Reason: Shortness of Breath Last Admin: 07/25/21 03:54 Dose: 2 puff Documented by: Albuterol/Ipratropium (Albuterol/Ipratropium 3.0-0.5 Mg/3 Ml Neb Soln) 3 ml NEB Q4HRRT PRN PRN Reason: Shortness of Breath Last Admin: 07/25/21 08:36 Dose: 3 ml Documented by: Allopurinol (Allopurinol 100 Mg Tab) 50 mg PO DAILY [place] Last Admin: 07/24/21 08:45 Dose: 50 mg Documented by: Benzonatate (Benzonatate 100 Mg Cap) 100 - 200 mg PO Q8H PRN PRN Reason: Cough Last Admin: 07/20/21 20:27 Dose: 200 mg Documented by: Dexamethasone (Dexamethasone 10 Mg/Ml Sdv) 6 mg IVPUSH DAILY [place] Stop: 07/27/21 09:01 Last Admin: 07/24/21 08:43 Dose: 6 mg Documented by: Diltiazem HCl (Diltiazem 120 Mg Cap.Cd) 120 mg PO DAILY [facility] Last Admin: 07/24/21 08:44 Dose: 120 mg Documented by: Enoxaparin Sodium (Enoxaparin 100 Mg/1 Ml Syringe) 100 mg SUBCUT Q12H [facility] Last Admin: 07/24/21 22:29 Dose: 100 mg Documented by: Guaifenesin (Guaifenesin 600 Mg Tab.Er) 600 mg PO BID [facility] Last Admin: 07/24/21 22:29 Dose: 600 mg Documented by: Cefepime HCl 2 gm/ Premix 50 mls @ 100 mls/hr IV Q12H [facility] Aztreonam 1 gm/ Sodium (Chloride) 50 mls @ 100 mls/hr IV Q8HR [facility] Dextrose/Sodium Chloride (Dextrose 5%-Normal Saline) 1,000 mls @ 100 mls/hr IV ASDIRECTED [facility] Insulin Human Lispro (Insulin Lispro 100 Unit/Ml 10 Ml Vial) 0 unit SUBCUT QIDACANDBED [facility]; Protocol Last Admin: 07/25/21 07:04 Dose: Not Given Documented by: Latanoprost (Latanoprost 0.005% Ophth Soln 2.5 Ml Bottle) 0 ml EYERT DAILY [facility] Last Admin: 07/24/21 08:46 Dose: 1 drop Documented by: Levothyroxine Sodium (Levothyroxine 125 Mcg Tab) 125 mcg PO DAILY@0600 [facility] Last Admin: 07/25/21 07:03 Dose: 125 mcg Documented by: Lidocaine (Lidocaine 4% 1 Each Patch) 1 each TOP Q24H [facility] Last Admin: 07/24/21 17:24 Dose: Not Given Documented by: Losartan Potassium (Losartan 50 Mg Tab) 50 mg PO DAILY [facility] Last Admin: 07/24/21 08:45 Dose: 50 mg Documented by: Miscellaneous Information (Remove Patch) 0 ea TRDERM Q24H [facility] Last Admin: 07/25/21 07:04 Dose: Not Given Documented by: Oxycodone HCl (Oxycodone 5 Mg Tab) 5 mg PO Q4H PRN PRN Reason: back pain Pantoprazole Sodium (Pantoprazole 40 Mg Tab.Cr) 40 mg PO ACBREAKFAST [facility] Last Admin: 07/25/21 07:03 Dose: 40 mg Documented by: Rosuvastatin Calcium (Rosuvastatin 10 Mg Tab) 20 mg PO DAILY [facility] Last Admin: 07/24/21 08:43 Dose: 20 mg Documented by: Sodium Chloride (Sodium Chloride 0.9% 10 Ml Syringe) 10 ml FLUSH ASDIRECTED PRN PRN Reason: Keep Vein Open Last Admin: 07/18/21 20:36 Dose: 10 ml Documented by: Tramadol HCl (Tramadol 50 Mg Tab) 50 - 100 mg PO Q6H PRN PRN Reason: pain Last Admin: 07/23/21 01:57 Dose: 100 mg Documented by: Vancomycin HCl (Pharmacy To Dose - Vancomycin) 1 dose .XX ASDIRECTED [place] Discontinued Medications Azithromycin (Azithromycin 250 Mg Tab) 500 mg PO DAILY [facility] Stop: 07/25/21 09:46 Last Admin: 07/24/21 08:44 Dose: 500 mg Documented by: Dexamethasone (Dexamethasone 10 Mg/Ml Sdv) 6 mg IVPUSH ONETIME ONE Stop: 07/18/21 21:41 Last Admin: 07/18/21 22:01 Dose: 6 mg Documented by: Enoxaparin Sodium (Enoxaparin 40 Mg/0.4 Ml Syringe) 40 mg SUBCUT DAILY [facility] Last Admin: 07/22/21 10:19 Dose: Not Given Documented by: Ceftriaxone Sodium 2 gm/ (Sodium Chloride) 100 mls @ 200 mls/hr IV ONETIME ONE Stop: 07/18/21 22:09 Last Admin: 07/18/21 22:12 Dose: 200 mls/hr Documented by: Remdesivir 100 mg/ Sodium (Chloride) 100 mls @ 100 mls/hr IV Q24H [facility] Stop: 07/23/21 09:29 Remdesivir 200 mg/ Sodium (Chloride) 250 mls @ 250 mls/hr IV ONETIME ONE Stop: 07/20/21 09:40 Last Admin: 07/20/21 10:25 Dose: 250 mls/hr Documented by: Remdesivir 100 mg/ Sodium (Chloride) 100 mls @ 100 mls/hr IV Q24H [facility] Stop: 07/24/21 09:59 Last Admin: 07/22/21 09:23 Dose: 100 mls/hr Documented by: Ceftriaxone Sodium 2 gm/ (Sodium Chloride) 100 mls @ 200 mls/hr IV Q24H [facility] Last Admin: 07/24/21 12:47 Dose: 200 mls/hr Documented by: Lidocaine (Lidocaine 4% 1 Each Patch) 1 each TOP Q24H [place] Last Admin: 07/23/21 16:37 Dose: 1 each Documented by: - Exam Quality Assessment: Supplemental Oxygen General: Other (Ill-appearing male in moderate respiratory distress initially, now in mild distress.) HEENT: Pupils Equal Neck: Supple Lungs: Crackles (Throughout both lung bishop.), Rhonchi (Left lower lobe). No: Normal Respiratory Effort (Increased respiratory rate and effort with use of accessory muscles.) Cardiovascular: Regular Rate, Regular Rhythm GI/Abdominal Exam: Normal Bowel Sounds, Soft, Non-Tender, No Distention Extremities: Normal Inspection, Non-Tender, Normal Capillary Refill Skin: Warm, Dry, Intact Psy/Mental Status: Alert, Normal Affect, Normal Mood - Patient Data Lab Results Last 24 hrs: Laboratory Results - last 24 hr 07/24/21 07/24/21 07/24/21 Range/Units 05:44 11:23 17:00 WBC (4.23-9.07) K/mm3 RBC (4.63-6.08) M/mm3 Hgb (13.7-17.5) gm/dl Hct (40.1-51.0) % MCV (79.0-92.2) fl MCH (25.7-32.2) pg MCHC (32.2-35.5) g/dl RDW Std Deviation (35.1-43.9) fL Plt Count (163-337) K/mm3 MPV (9.4-12.3) fl Neut % (Auto) (34.0-67.9) % Lymph % (Auto) (21.8-53.1) % Republic % (Auto) (5.3-12.2) % Eos % (Auto) (0.8-7.0) Baso % (Auto) (0.1-1.2) % Neut # (Auto) (1.78-5.38) K/mm3 Lymph # (Auto) (1.32-3.57) K/mm3 Republic # (Auto) (0.30-0.82) K/mm3 Eos # (Auto) (0.04-0.54) K/mm3 Baso # (Auto) (0.01-0.08) K/mm3 Manual Slide Review Sodium (136-145) mEq/L Potassium (3.5-5.1) mEq/L Chloride (98-107) mEq/L Carbon Dioxide (21-32) mEq/L Anion Gap (5-15) BUN (7-18) mg/dL Creatinine (0.7-1.3) mg/dL Est Cr Clr Drug Dosing mL/min Estimated GFR (MDRD) (>60) mL/min BUN/Creatinine Ratio (14-18) Glucose (70-99) mg/dL POC Glucose 112 H 131 H (70-99) mg/dL Calcium (8.5-10.1) mg/dL Phosphorus (2.6-4.7) mg/dL Magnesium (1.8-2.4) mg/dL Total Bilirubin (0.2-1.0) mg/dL AST (15-37) U/L ALT (16-63) U/L Alkaline Phosphatase (46-116) U/L C-Reactive Protein (<1.0) mg/dL Total Protein (6.4-8.2) g/dl Albumin (3.4-5.0) g/dl Globulin gm/dL Albumin/Globulin Ratio (1-2) Procalcitonin 0.92 H ng/mL 07/24/21 07/25/21 07/25/21 Range/Units 22:25 05:04 05:04 WBC 20.08 H (4.23-9.07) K/mm3 RBC 5.00 (4.63-6.08) M/mm3 Hgb 15.5 (13.7-17.5) gm/dl Hct 45.6 (40.1-51.0) % MCV 91.2 (79.0-92.2) fl MCH 31.0 (25.7-32.2) pg MCHC 34.0 (32.2-35.5) g/dl RDW Std Deviation 44.3 H (35.1-43.9) fL Plt Count 286 (163-337) K/mm3 MPV 9.4 (9.4-12.3) fl Neut % (Auto) 92.2 H (34.0-67.9) % Lymph % (Auto) 2.6 L (21.8-53.1) % Republic % (Auto) 2.8 L (5.3-12.2) % Eos % (Auto) 1.1 (0.8-7.0) Baso % (Auto) 0.1 (0.1-1.2) % Neut # (Auto) 18.49 H (1.78-5.38) K/mm3 Lymph # (Auto) 0.52 L (1.32-3.57) K/mm3 Republic # (Auto) 0.57 (0.30-0.82) K/mm3 Eos # (Auto) 0.23 (0.04-0.54) K/mm3 Baso # (Auto) 0.02 (0.01-0.08) K/mm3 Manual Slide Review Abnormal smear Sodium 135 L (136-145) mEq/L Potassium 4.5 (3.5-5.1) mEq/L Chloride 101 (98-107) mEq/L Carbon Dioxide 20 L (21-32) mEq/L Anion Gap 18.5 H (5-15) BUN 47 H (7-18) mg/dL Creatinine 1.9 H (0.7-1.3) mg/dL Est Cr Clr Drug Dosing 42.54 mL/min Estimated GFR (MDRD) 36 (>60) mL/min BUN/Creatinine Ratio 24.7 H (14-18) Glucose 89 (70-99) mg/dL POC Glucose 115 H (70-99) mg/dL Calcium 8.9 (8.5-10.1) mg/dL Phosphorus 3.5 (2.6-4.7) mg/dL Magnesium 2.6 H (1.8-2.4) mg/dL Total Bilirubin 0.7 (0.2-1.0) mg/dL AST 55 H (15-37) U/L ALT 132 H (16-63) U/L Alkaline Phosphatase 98 (46-116) U/L C-Reactive Protein 17.4 H* (<1.0) mg/dL Total Protein 7.8 (6.4-8.2) g/dl Albumin 2.7 L (3.4-5.0) g/dl Globulin 5.1 gm/dL Albumin/Globulin Ratio 0.5 L (1-2) Procalcitonin ng/mL 07/25/21 Range/Units 07:00 WBC (4.23-9.07) K/mm3 RBC (4.63-6.08) M/mm3 Hgb (13.7-17.5) gm/dl Hct (40.1-51.0) % MCV (79.0-92.2) fl MCH (25.7-32.2) pg MCHC (32.2-35.5) g/dl RDW Std Deviation (35.1-43.9) fL Plt Count (163-337) K/mm3 MPV (9.4-12.3) fl Neut % (Auto) (34.0-67.9) % Lymph % (Auto) (21.8-53.1) % Republic % (Auto) (5.3-12.2) % Eos % (Auto) (0.8-7.0) Baso % (Auto) (0.1-1.2) % Neut # (Auto) (1.78-5.38) K/mm3 Lymph # (Auto) (1.32-3.57) K/mm3 Republic # (Auto) (0.30-0.82) K/mm3 Eos # (Auto) (0.04-0.54) K/mm3 Baso # (Auto) (0.01-0.08) K/mm3 Manual Slide Review Sodium (136-145) mEq/L Potassium (3.5-5.1) mEq/L Chloride (98-107) mEq/L Carbon Dioxide (21-32) mEq/L Anion Gap (5-15) BUN (7-18) mg/dL Creatinine (0.7-1.3) mg/dL Est Cr Clr Drug Dosing mL/min Estimated GFR (MDRD) (>60) mL/min BUN/Creatinine Ratio (14-18) Glucose (70-99) mg/dL POC Glucose 82 (70-99) mg/dL Calcium (8.5-10.1) mg/dL Phosphorus (2.6-4.7) mg/dL Magnesium (1.8-2.4) mg/dL Total Bilirubin (0.2-1.0) mg/dL AST (15-37) U/L ALT (16-63) U/L Alkaline Phosphatase (46-116) U/L C-Reactive Protein (<1.0) mg/dL Total Protein (6.4-8.2) g/dl Albumin (3.4-5.0) g/dl Globulin gm/dL Albumin/Globulin Ratio (1-2) Procalcitonin ng/mL Result Diagrams: 07/25/21 05:04 07/25/21 05:04 [place] Results Last 24 hrs: Microbiology 07/18/21 22:00 Blood Culture - Final Blood - Venous - Lab Draw 07/18/21 22:10 Blood Culture - Final Blood - Venous Sepsis Event Note - Evaluation Sepsis Screening Result: Possible Sepsis Risk - Focused Exam Vital Signs: Vital Signs Temp Pulse Resp BP Pulse Ox Pulse Ox Pulse Ox 07/25/21 08:39 92 L 07/25/21 05:46 92 L 07/25/21 04:19 98.1 F 88 28 H 148/81 H 90 L 07/25/21 04:13 91 L 07/25/21 03:55 68 L 07/25/21 00:00 98.1 F 71 20 115/63 94 L - Problem List & Annotations (1) Pneumonia due to COVID-19 virus SNOMED Code(s): 354341082005451534 Code(s): U07.1 - COVID-19; J12.82 - PNEUMONIA DUE TO CORONAVIRUS DISEASE 2019 Status: Acute Current Visit: Yes (2) Diabetes type 2, controlled SNOMED Code(s): 36833900, 562208628 Code(s): E11.9 - TYPE 2 DIABETES MELLITUS WITHOUT COMPLICATIONS Status: Acute Current Visit: Yes (3) HTN (hypertension) SNOMED Code(s): 88442444 Code(s): I10 - ESSENTIAL (PRIMARY) HYPERTENSION Status: Acute Current Visit: Yes - Problem List Review Problem List Initiated/Reviewed/Updated: Yes - My Orders Last 24 Hours: My Active Orders 07/25/21 08:25 Chest 1V Frontal [CR] Stat 07/25/21 08:41 BLOOD CULTURE [MREF] Stat BLOOD CULTURE [MREF] Stat Blood Culture x2 Reflex Set [OM.PC] Stat 07/25/21 08:42 UA W/NAVNEET RFLX IF INDICATED [URIN] Routine 07/25/21 08:44 ABG [BLOOD GAS ARTERIAL] [BG] Urgent 07/25/21 08:45 LACTIC ACID [CHEM] Stat 07/25/21 08:50 THROAT CULTURE [MREF] Routine 07/25/21 09:00 Cefepime [Maxipime in D5W 2 GM/50 ML] 2 gm Premix Bag 1 bag IV Q12H Dextrose 5%-0.9% NaCl [Dextrose 5%-Normal Saline] 1,000 ml IV ASDIRECTED Pharmacy to Dose - Vancomycin 1 dose .XX ASDIRECTED 07/25/21 14:00 Aztreonam [Azactam] 1 gm Sodium Chloride 0.9% [Normal Saline] 50 ml IV Q8HR 07/26/21 05:11 C-REACTIVE PROTEIN [CHEM] AM CBC WITH AUTO DIFF [HEME] AM CMP [COMPREHENSIVE METABOLIC PN,CMP] [CHEM] AM MAGNESIUM [CHEM] AM PHOSPHORUS [CHEM] AM 07/27/21 05:11 C-REACTIVE PROTEIN [CHEM] AM CBC WITH AUTO DIFF [HEME] AM CMP [COMPREHENSIVE METABOLIC PN,CMP] [CHEM] AM MAGNESIUM [CHEM] AM PHOSPHORUS [CHEM] AM - Plan Plan:: 66-year-old diabetic with COVID-19 presented to the emergency room with worsening shortness of breath. Acute hypoxemic respiratory failure due to COVID 19 pneumonia -deteriorated Possible new onset PE. D-dimer increased from 0.5 to 5, now 4.3. Patient is not stable enough to get CTA at this time and will not change care -CRP increased from 7->22->17.4 -Lovenox 1 mg/kg every 12 hours for therapeutic dosing. -Alternate high flow nasal cannula and BiPAP secondary to increased respiratory rate and work of breathing. -Continue with supportive care in the ICU. -Encourage proning and use of the incentive spirometer Pneumonia due to COVID-19 -Hypoxemia requiring high flow nasal cannula -White count increased to 20, procalcitonin increased to 0.9, lactic acid 2.1, serum bicarb 20 -ABG significant for metabolic acidosis compensated -Continue dexamethasone, and baricitinib -Although patient is afebrile, he has had worsening episodes of hypoxemia, significant increase in his white blood cell count with toxic granulations, sli ght increase in calcitonin, increase in his C-reactive protein. -Switched to treat healthcare associated pneumonia with vancomycin, cefepime, and Levaquin. Patient has a history of levofloxacin allergy, but it is remote and does not sound like anaphylactic reaction. He states he was ill and felt l ightheaded and disoriented. Even dizzy. He denies any shortness of breath, swelling of the throat, or any anaphylactic type reaction. I counseled the patient that I recommended adding Levaquin to his regimen and that we will keep close contact of his Acute kidney injury on chronic kidney injury. -Deteriorated -Review of old records suggest baseline creatinine of 1.4 and estimated GFR of 51. -Good oral intake -Possibly deteriorated secondary to sepsis -Lactic acid 2.1 -Initial GFR 47, creatinine 1.6 -Creatinine up to 1.9 and GFR of 36 -Renally adjust medications Type 2 diabetes with diabetic nephropathy -hemoglobin A1c 5.8 -Continue home meds -Fingerstick blood sugar before every meal and at bedtime -Sliding scale insulin Transaminitisimproved -AST 66, ALT 174. Likely secondary to remdesivir and COVID-19. Hypertension, gout, hypothyroid, hyperlipidemia -Continue home meds -TSH 1.22 Obesity will need lifestyle modification changes. VTE prophylaxis with Lovenox CODE STATUS: Full code Prognosis remains guarded.
[2021-07-25] MEDS: Dextrose 5%-0.9% NaCl 1,000 ML IV SCH ×2 (09:26→19:27)
[2021-07-25] MEDS: Cefepime 2 GM in Premix Bag 1 BAG IV SCH ×2 (09:26→20:30)
[2021-07-25] MEDS: Enoxaparin 100 MG/1 ML Syringe SUBCUT SCH ×2 (09:36→20:28)
[2021-07-25] MEDS: guaiFENesin 600 MG Tab.ER PO SCH ×2 (09:37→20:29)
[2021-07-25] MEDS: Rosuvastatin 10 MG Tab PO SCH (09:37)
[2021-07-25] MEDS: Allopurinol 100 MG Tab PO SCH (09:37)
[2021-07-25] MEDS: Diltiazem 120 MG Cap.CD PO SCH (09:37)
[2021-07-25] MEDS: Losartan 50 MG Tab PO SCH (09:38)
[2021-07-25] MEDS: Empagliflozin 25 MG Tab PO SCH (09:38)
[2021-07-25] MEDS: Dexamethasone 10 MG/ML SDV IVPUSH SCH (09:38)
[2021-07-25] MEDS: Latanoprost 0.005% Ophth Soln 2.5 ML Bottle EYERT SCH (09:42)
--- NOTE | 2021-07-25 09:43 | CR ---
Chest: Frontal view of the chest was obtained. Comparison: Prior chest x-ray of 07/23/21. Heart size and mediastinum are normal. Patchy areas of increased density are seen on both sides of the chest. Findings are fairly stable from prior exam. Bony structures show nothing acute. Stable large cyst is noted within the upper left abdomen. Impression: 1. Stable chest x-ray from previous exam of 07/23/21. 2. No definite worsening is appreciated. Diagnostic code #3
[2021-07-25] MEDS ORDERED: Vancomycin 2 GM in Sodium Chloride 0.9% 500 ML IV ONE (10:00)
[2021-07-25] MEDS: Levofloxacin/Dextrose 5%-Water 750 MG in Premix Bag 1 BAG IV SCH (10:55)
[2021-07-25] MEDS: Lidocaine 4% 1 each Patch TOP SCH (16:22)
[2021-07-25] MEDS: LORazepam 1 MG Tab PO PRN (16:23)
[2021-07-26] MEDS: Vancomycin 1 GM, Vancomycin 500 MG in Sodium Chloride 0.9% 500 ML IV SCH ×2 (04:40→22:11)
[2021-07-26] MEDS: Dextrose 5%-0.9% NaCl 1,000 ML IV SCH ×2 (04:48→14:51)
[2021-07-26] MEDS: Albuterol/Ipratropium 3.0-0.5 MG/3 ML Neb Soln NEB PRN ×4 (05:22→22:12)
[2021-07-26] MEDS: Insulin Lispro 100 UNIT/ML 10 ML Vial SUBCUT SCH ×4 (06:42→22:04)
[2021-07-26] MEDS: Levothyroxine 125 MCG Tab PO SCH (06:47)
[2021-07-26] MEDS: Pantoprazole 40 MG Tab.CR PO SCH (06:47)
[2021-07-26] MEDS: Rosuvastatin 10 MG Tab PO SCH (08:01)
[2021-07-26] MEDS: Dexamethasone 10 MG/ML SDV IVPUSH SCH (08:02)
[2021-07-26] MEDS: Diltiazem 120 MG Cap.CD PO SCH (08:02)
[2021-07-26] MEDS: Losartan 50 MG Tab PO SCH (08:05)
[2021-07-26] MEDS: guaiFENesin 600 MG Tab.ER PO SCH ×2 (08:05→20:28)
[2021-07-26] MEDS: Allopurinol 100 MG Tab PO SCH (08:05)
[2021-07-26] MEDS: Latanoprost 0.005% Ophth Soln 2.5 ML Bottle EYERT SCH (08:06)
[2021-07-26] MEDS: Empagliflozin 25 MG Tab PO SCH (08:06)
[2021-07-26] MEDS: Cefepime 2 GM in Premix Bag 1 BAG IV SCH ×2 (08:06→20:23)
[2021-07-26] MEDS: Enoxaparin 100 MG/1 ML Syringe SUBCUT SCH ×2 (08:06→20:28)
[2021-07-26] MEDS: LORazepam 1 MG Tab PO PRN ×2 (12:19→20:28)
[2021-07-26] MEDS ORDERED: Dextrose 5%-0.9% NaCl 1,000 ML IV SCH (15:00)
[2021-07-26] MEDS: Lidocaine 4% 1 each Patch TOP SCH (16:30)
--- NOTE | 2021-07-26 17:40 | PCM.PN ---
- General Info Date of Service: 07/26/21 Admission Dx/Problem (Free Text): Admission Diagnosis/Problem Admission Diagnosis/Problem Hypoxia Subjective Update: Patient continues to state he is feeling better with decreased shortness of breath. He continues on very high respiratory support on BiPAP at 80%. If he moves much at all, lays down in bed, or even prone's his oxygen saturations drop into the 80s or 70s. As long as he sits upright or leans forward his oxygen saturations will be in the mid 90s. Patient does state he has a good appetite and he ate around his BiPAP mask this morning. - Review of Systems General: Reports: Fatigue HEENT: Reports: No Symptoms Pulmonary: Reports: Shortness of Breath, Cough Cardiovascular: Reports: No Symptoms Gastrointestinal: Reports: No Symptoms Musculoskeletal: Reports: No Symptoms - Patient Data Vitals - Most Recent: Last Vital Signs Temp 97.6 F 07/26/21 08:03 Pulse 77 07/26/21 08:02 Resp 32 H 07/26/21 12:00 BP 144/73 H 07/26/21 12:00 Pulse Ox 91 L 07/26/21 13:42 Weight - Most Recent: 230 lb 9.6 oz I&O - Last 24 Hours: Intake & Output 07/26/21 07/26/21 07/26/21 06:59 14:59 22:59 Intake Total 2065 180 210 Output Total 1550 Balance 515 180 210 Lab Results Last 24 Hours: Laboratory Results - last 24 hr 07/25/21 07/25/21 07/26/21 Range/Units 16:54 20:23 06:41 WBC (4.23-9.07) K/mm3 RBC (4.63-6.08) M/mm3 Hgb (13.7-17.5) gm/dl Hct (40.1-51.0) % MCV (79.0-92.2) fl MCH (25.7-32.2) pg MCHC (32.2-35.5) g/dl RDW Std Deviation (35.1-43.9) fL Plt Count (163-337) K/mm3 MPV (9.4-12.3) fl Neut % (Auto) (34.0-67.9) % Lymph % (Auto) (21.8-53.1) % [place] % (Auto) (5.3-12.2) % Eos % (Auto) (0.8-7.0) Baso % (Auto) (0.1-1.2) % Neut # (Auto) (1.78-5.38) K/mm3 Lymph # (Auto) (1.32-3.57) K/mm3 [place] # (Auto) (0.30-0.82) K/mm3 Eos # (Auto) (0.04-0.54) K/mm3 Baso # (Auto) (0.01-0.08) K/mm3 Sodium (136-145) mEq/L Potassium (3.5-5.1) mEq/L Chloride (98-107) mEq/L Carbon Dioxide (21-32) mEq/L Anion Gap (5-15) BUN (7-18) mg/dL Creatinine (0.7-1.3) mg/dL Est Cr Clr Drug Dosing mL/min Estimated GFR (MDRD) (>60) mL/min BUN/Creatinine Ratio (14-18) Glucose (70-99) mg/dL POC Glucose 195 H 112 H (70-99) mg/dL Lactic Acid 2.1 H* (0.4-2.0) mmol/L Calcium (8.5-10.1) mg/dL Phosphorus (2.6-4.7) mg/dL Magnesium (1.8-2.4) mg/dL Total Bilirubin (0.2-1.0) mg/dL AST (15-37) U/L ALT (16-63) U/L Alkaline Phosphatase (46-116) U/L C-Reactive Protein (<1.0) mg/dL Total Protein (6.4-8.2) g/dl Albumin (3.4-5.0) g/dl Globulin gm/dL Albumin/Globulin Ratio (1-2) 07/26/21 07/26/21 07/26/21 Range/Units 06:48 06:48 12:11 WBC 13.95 H (4.23-9.07) K/mm3 RBC 4.62 L (4.63-6.08) M/mm3 Hgb 14.4 (13.7-17.5) gm/dl Hct 43.2 (40.1-51.0) % MCV 93.5 H (79.0-92.2) fl MCH 31.2 (25.7-32.2) pg MCHC 33.3 (32.2-35.5) g/dl RDW Std Deviation 44.6 H (35.1-43.9) fL Plt Count 300 (163-337) K/mm3 MPV 9.0 L (9.4-12.3) fl Neut % (Auto) 91.8 H (34.0-67.9) % Lymph % (Auto) 2.2 L (21.8-53.1) % [place] % (Auto) 4.6 L (5.3-12.2) % Eos % (Auto) 0.2 L (0.8-7.0) Baso % (Auto) 0.1 (0.1-1.2) % Neut # (Auto) 12.82 H (1.78-5.38) K/mm3 Lymph # (Auto) 0.30 L (1.32-3.57) K/mm3 [place] # (Auto) 0.64 (0.30-0.82) K/mm3 Eos # (Auto) 0.03 L (0.04-0.54) K/mm3 Baso # (Auto) 0.01 (0.01-0.08) K/mm3 Sodium 137 (136-145) mEq/L Potassium 4.5 (3.5-5.1) mEq/L Chloride 103 (98-107) mEq/L Carbon Dioxide 23 (21-32) mEq/L Anion Gap 15.5 H (5-15) BUN 47 H (7-18) mg/dL Creatinine 1.9 H (0.7-1.3) mg/dL Est Cr Clr Drug Dosing 42.54 mL/min Estimated GFR (MDRD) 36 (>60) mL/min BUN/Creatinine Ratio 24.7 H (14-18) Glucose 121 H (70-99) mg/dL POC Glucose 147 H (70-99) mg/dL Lactic Acid (0.4-2.0) mmol/L Calcium 8.8 (8.5-10.1) mg/dL Phosphorus 4.1 (2.6-4.7) mg/dL Magnesium 2.7 H (1.8-2.4) mg/dL Total Bilirubin 0.6 (0.2-1.0) mg/dL AST 53 H (15-37) U/L ALT 141 H (16-63) U/L Alkaline Phosphatase 97 (46-116) U/L C-Reactive Protein 14.5 H* (<1.0) mg/dL Total Protein 7.3 (6.4-8.2) g/dl Albumin 2.5 L (3.4-5.0) g/dl Globulin 4.8 gm/dL Albumin/Globulin Ratio 0.5 L (1-2) 07/26/21 Range/Units 17:22 WBC (4.23-9.07) K/mm3 RBC (4.63-6.08) M/mm3 Hgb (13.7-17.5) gm/dl Hct (40.1-51.0) % MCV (79.0-92.2) fl MCH (25.7-32.2) pg MCHC (32.2-35.5) g/dl RDW Std Deviation (35.1-43.9) fL Plt Count (163-337) K/mm3 MPV (9.4-12.3) fl Neut % (Auto) (34.0-67.9) % Lymph % (Auto) (21.8-53.1) % [place] % (Auto) (5.3-12.2) % Eos % (Auto) (0.8-7.0) Baso % (Auto) (0.1-1.2) % Neut # (Auto) (1.78-5.38) K/mm3 Lymph # (Auto) (1.32-3.57) K/mm3 [place] # (Auto) (0.30-0.82) K/mm3 Eos # (Auto) (0.04-0.54) K/mm3 Baso # (Auto) (0.01-0.08) K/mm3 Sodium (136-145) mEq/L Potassium (3.5-5.1) mEq/L Chloride (98-107) mEq/L Carbon Dioxide (21-32) mEq/L Anion Gap (5-15) BUN (7-18) mg/dL Creatinine (0.7-1.3) mg/dL Est Cr Clr Drug Dosing mL/min Estimated GFR (MDRD) (>60) mL/min BUN/Creatinine Ratio (14-18) Glucose (70-99) mg/dL POC Glucose 143 H (70-99) mg/dL Lactic Acid (0.4-2.0) mmol/L Calcium (8.5-10.1) mg/dL Phosphorus (2.6-4.7) mg/dL Magnesium (1.8-2.4) mg/dL Total Bilirubin (0.2-1.0) mg/dL AST (15-37) U/L ALT (16-63) U/L Alkaline Phosphatase (46-116) U/L C-Reactive Protein (<1.0) mg/dL Total Protein (6.4-8.2) g/dl Albumin (3.4-5.0) g/dl Globulin gm/dL Albumin/Globulin Ratio (1-2) Med Orders - Current: Current Medications Acetaminophen (Acetaminophen 325 Mg Tab) 650 mg PO Q4H PRN PRN Reason: Fever Greater Than 101 Last Admin: 07/24/21 06:21 Dose: 650 mg Documented by: Albuterol (Albuterol 6.7 Gm Inhaler) 1 - 2 gm INH Q4H PRN PRN Reason: Shortness of Breath Last Admin: 07/25/21 03:54 Dose: 2 puff Documented by: Albuterol/Ipratropium (Albuterol/Ipratropium 3.0-0.5 Mg/3 Ml Neb Soln) 3 ml NEB Q4HRRT PRN PRN Reason: Shortness of Breath Last Admin: 07/26/21 13:42 Dose: 3 ml Documented by: Allopurinol (Allopurinol 100 Mg Tab) 50 mg PO DAILY [facility] Last Admin: 07/26/21 08:05 Dose: 50 mg Documented by: Benzonatate (Benzonatate 100 Mg Cap) 100 - 200 mg PO Q8H PRN PRN Reason: Cough Last Admin: 07/20/21 20:27 Dose: 200 mg Documented by: Dexamethasone (Dexamethasone 10 Mg/Ml Sdv) 6 mg IVPUSH DAILY [facility] Stop: 07/27/21 09:01 Last Admin: 07/26/21 08:02 Dose: 6 mg Documented by: Diltiazem HCl (Diltiazem 120 Mg Cap.Cd) 120 mg PO DAILY [facility] Last Admin: 07/26/21 08:02 Dose: 120 mg Documented by: Enoxaparin Sodium (Enoxaparin 100 Mg/1 Ml Syringe) 100 mg SUBCUT Q12H [facility] Last Admin: 07/26/21 08:06 Dose: 100 mg Documented by: Guaifenesin (Guaifenesin 600 Mg Tab.Er) 600 mg PO BID [facility] Last Admin: 07/26/21 08:05 Dose: 600 mg Documented by: Cefepime HCl 2 gm/ Premix 50 mls @ 100 mls/hr IV Q12H [facility] Stop: 07/27/21 23:00 Last Admin: 07/26/21 08:06 Dose: 100 mls/hr Documented by: Vancomycin HCl 1 gm/Vancomycin HCl 500 mg/ Sodium Chloride 500 mls @ 250 mls/hr IV Q18H [facility] Last Admin: 07/26/21 04:40 Dose: 250 mls/hr Documented by: Levofloxacin/Dextrose 750 mg/ (Premix) 150 mls @ 100 mls/hr IV Q48H [facility] Last Admin: 07/25/21 10:55 Dose: 100 mls/hr Documented by: Cefepime HCl 2 gm/ Sodium (Chloride) 100 mls @ 200 mls/hr IV Q12H [facility] Dextrose/Sodium Chloride (Dextrose 5%-Normal Saline) 1,000 mls @ 50 mls/hr IV ASDIRECTED [facility] Insulin Human Lispro (Insulin Lispro 100 Unit/Ml 10 Ml Vial) 0 unit SUBCUT QIDACANDBED [facility]; Protocol Last Admin: 07/26/21 13:26 Dose: Not Given Documented by: Latanoprost (Latanoprost 0.005% Oph Soln 2.5 Ml Bottle) 0 ml EYERT DAILY [facility] Last Admin: 07/26/21 08:06 Dose: 1 drop Documented by: Levothyroxine Sodium (Levothyroxine 125 Mcg Tab) 125 mcg PO DAILY@0600 [facility] Last Admin: 07/26/21 06:47 Dose: 125 mcg Documented by: Lidocaine (Lidocaine 4% 1 Each Patch) 1 each TOP Q24H [facility] Last Admin: 07/25/21 16:22 Dose: 1 each Documented by: Lorazepam (Lorazepam 1 Mg Tab) 1 mg PO Q4H PRN PRN Reason: Anxiety Last Admin: 07/26/21 12:19 Dose: 1 mg Documented by: Losartan Potassium (Losartan 50 Mg Tab) 50 mg PO DAILY [facility] Last Admin: 07/26/21 08:05 Dose: 50 mg Documented by: Miscellaneous Information (Remove Patch) 0 ea TRDERM Q24H [facility] Last Admin: 07/26/21 04:47 Dose: 1 ea Documented by: Oxycodone HCl (Oxycodone 5 Mg Tab) 5 mg PO Q4H PRN PRN Reason: back pain Pantoprazole Sodium (Pantoprazole 40 Mg Tab.Cr) 40 mg PO ACBREAKFAST [facility] Last Admin: 07/26/21 06:47 Dose: 40 mg Documented by: Rosuvastatin Calcium (Rosuvastatin 10 Mg Tab) 20 mg PO DAILY [facility] Last Admin: 07/26/21 08:01 Dose: 20 mg Documented by: Sodium Chloride (Sodium Chloride 0.9% 10 Ml Syringe) 10 ml FLUSH ASDIRECTED PRN PRN Reason: Keep Vein Open Last Admin: 07/18/21 20:36 Dose: 10 ml Documented by: Tramadol HCl (Tramadol 50 Mg Tab) 50 - 100 mg PO Q6H PRN PRN Reason: pain Last Admin: 07/23/21 01:57 Dose: 100 mg Documented by: Vancomycin HCl (Pharmacy To Dose - Vancomycin) 0 dose .XX ASDIRECTED PRN PRN Reason: RX TO DOSE VANCO Discontinued Medications Azithromycin (Azithromycin 250 Mg Tab) 500 mg PO DAILY [facility] Stop: 07/25/21 09:46 Last Admin: 07/24/21 08:44 Dose: 500 mg Documented by: Dexamethasone (Dexamethasone 10 Mg/Ml Sdv) 6 mg IVPUSH ONETIME ONE Stop: 07/18/21 21:41 Last Admin: 07/18/21 22:01 Dose: 6 mg Documented by: Enoxaparin Sodium (Enoxaparin 40 Mg/0.4 Ml Syringe) 40 mg SUBCUT DAILY [facility] Last Admin: 07/22/21 10:19 Dose: Not Given Documented by: Ceftriaxone Sodium 2 gm/ (Sodium Chloride) 100 mls @ 200 mls/hr IV ONETIME ONE Stop: 07/18/21 22:09 Last Admin: 07/18/21 22:12 Dose: 200 mls/hr Documented by: Remdesivir 100 mg/ Sodium (Chloride) 100 mls @ 100 mls/hr IV Q24H [facility] Stop: 07/23/21 09:29 Remdesivir 200 mg/ Sodium (Chloride) 250 mls @ 250 mls/hr IV ONETIME ONE Stop: 07/20/21 09:40 Last Admin: 07/20/21 10:25 Dose: 250 mls/hr Documented by: Remdesivir 100 mg/ Sodium (Chloride) 100 mls @ 100 mls/hr IV Q24H [facility] Stop: 07/24/21 09:59 Last Admin: 07/22/21 09:23 Dose: 100 mls/hr Documented by: Ceftriaxone Sodium 2 gm/ (Sodium Chloride) 100 mls @ 200 mls/hr IV Q24H [facility] Last Admin: 07/24/21 12:47 Dose: 200 mls/hr Documented by: Aztreonam 1 gm/ Sodium (Chloride) 50 mls @ 100 mls/hr IV Q8HR [facility] Dextrose/Sodium Chloride (Dextrose 5%-Normal Saline) 1,000 mls @ 100 mls/hr IV ASDIRECTED [facility] Last Admin: 07/26/21 14:51 Dose: 100 mls/hr Documented by: Vancomycin HCl 2 gm/ Sodium (Chloride) 500 mls @ 250 mls/hr IV ONETIME ONE Stop: 07/25/21 11:59 Last Admin: 07/25/21 09:26 Dose: 250 mls/hr Documented by: Lidocaine (Lidocaine 4% 1 Each Patch) 1 each TOP Q24H [facility] Last Admin: 07/23/21 16:37 Dose: 1 each Documented by: - Exam Quality Assessment: Supplemental Oxygen (BiPAP) General: Alert, Oriented HEENT: Pupils Equal, Mucous Membr. Moist/[place] Neck: Supple Lungs: Decreased Breath Sounds, Crackles (Bibasilar, improved on the left lung field). No: Normal Respiratory Effort (Increased respiratory rate and effort) Cardiovascular: Regular Rate, Regular Rhythm GI/Abdominal Exam: Normal Bowel Sounds, Soft, No Distention Extremities: Normal Inspection, No Pedal Edema Psy/Mental Status: Alert, Depressed - Patient Data Lab Results Last 24 hrs: Laboratory Results - last 24 hr 07/25/21 07/25/21 07/26/21 Range/Units 16:54 20:23 06:41 WBC (4.23-9.07) K/mm3 RBC (4.63-6.08) M/mm3 Hgb (13.7-17.5) gm/dl Hct (40.1-51.0) % MCV (79.0-92.2) fl MCH (25.7-32.2) pg MCHC (32.2-35.5) g/dl RDW Std Deviation (35.1-43.9) fL Plt Count (163-337) K/mm3 MPV (9.4-12.3) fl Neut % (Auto) (34.0-67.9) % Lymph % (Auto) (21.8-53.1) % [place] % (Auto) (5.3-12.2) % Eos % (Auto) (0.8-7.0) Baso % (Auto) (0.1-1.2) % Neut # (Auto) (1.78-5.38) K/mm3 Lymph # (Auto) (1.32-3.57) K/mm3 [place] # (Auto) (0.30-0.82) K/mm3 Eos # (Auto) (0.04-0.54) K/mm3 Baso # (Auto) (0.01-0.08) K/mm3 Sodium (136-145) mEq/L Potassium (3.5-5.1) mEq/L Chloride (98-107) mEq/L Carbon Dioxide (21-32) mEq/L Anion Gap (5-15) BUN (7-18) mg/dL Creatinine (0.7-1.3) mg/dL Est Cr Clr Drug Dosing mL/min Estimated GFR (MDRD) (>60) mL/min BUN/Creatinine Ratio (14-18) Glucose (70-99) mg/dL POC Glucose 195 H 112 H (70-99) mg/dL Lactic Acid 2.1 H* (0.4-2.0) mmol/L Calcium (8.5-10.1) mg/dL Phosphorus (2.6-4.7) mg/dL Magnesium (1.8-2.4) mg/dL Total Bilirubin (0.2-1.0) mg/dL AST (15-37) U/L ALT (16-63) U/L Alkaline Phosphatase (46-116) U/L C-Reactive Protein (<1.0) mg/dL Total Protein (6.4-8.2) g/dl Albumin (3.4-5.0) g/dl Globulin gm/dL Albumin/Globulin Ratio (1-2) 07/26/21 07/26/21 07/26/21 Range/Units 06:48 06:48 12:11 WBC 13.95 H (4.23-9.07) K/mm3 RBC 4.62 L (4.63-6.08) M/mm3 Hgb 14.4 (13.7-17.5) gm/dl Hct 43.2 (40.1-51.0) % MCV 93.5 H (79.0-92.2) fl MCH 31.2 (25.7-32.2) pg MCHC 33.3 (32.2-35.5) g/dl RDW Std Deviation 44.6 H (35.1-43.9) fL Plt Count 300 (163-337) K/mm3 MPV 9.0 L (9.4-12.3) fl Neut % (Auto) 91.8 H (34.0-67.9) % Lymph % (Auto) 2.2 L (21.8-53.1) % [place] % (Auto) 4.6 L (5.3-12.2) % Eos % (Auto) 0.2 L (0.8-7.0) Baso % (Auto) 0.1 (0.1-1.2) % Neut # (Auto) 12.82 H (1.78-5.38) K/mm3 Lymph # (Auto) 0.30 L (1.32-3.57) K/mm3 [place] # (Auto) 0.64 (0.30-0.82) K/mm3 Eos # (Auto) 0.03 L (0.04-0.54) K/mm3 Baso # (Auto) 0.01 (0.01-0.08) K/mm3 Sodium 137 (136-145) mEq/L Potassium 4.5 (3.5-5.1) mEq/L Chloride 103 (98-107) mEq/L Carbon Dioxide 23 (21-32) mEq/L Anion Gap 15.5 H (5-15) BUN 47 H (7-18) mg/dL Creatinine 1.9 H (0.7-1.3) mg/dL Est Cr Clr Drug Dosing 42.54 mL/min Estimated GFR (MDRD) 36 (>60) mL/min BUN/Creatinine Ratio 24.7 H (14-18) Glucose 121 H (70-99) mg/dL POC Glucose 147 H (70-99) mg/dL Lactic Acid (0.4-2.0) mmol/L Calcium 8.8 (8.5-10.1) mg/dL Phosphorus 4.1 (2.6-4.7) mg/dL Magnesium 2.7 H (1.8-2.4) mg/dL Total Bilirubin 0.6 (0.2-1.0) mg/dL AST 53 H (15-37) U/L ALT 141 H (16-63) U/L Alkaline Phosphatase 97 (46-116) U/L C-Reactive Protein 14.5 H* (<1.0) mg/dL Total Protein 7.3 (6.4-8.2) g/dl Albumin 2.5 L (3.4-5.0) g/dl Globulin 4.8 gm/dL Albumin/Globulin Ratio 0.5 L (1-2) 07/26/ Range/Units 17:22 WBC (4.23-9.07) K/mm3 RBC (4.63-6.08) M/mm3 Hgb (13.7-17.5) gm/dl Hct (40.1-51.0) % MCV (79.0-92.2) fl MCH (25.7-32.2) pg MCHC (32.2-35.5) g/dl RDW Std Deviation (35.1-43.9) fL Plt Count (163-337) K/mm3 MPV (9.4-12.3) fl Neut % (Auto) (34.0-67.9) % Lymph % (Auto) (21.8-53.1) % [place] % (Auto) (5.3-12.2) % Eos % (Auto) (0.8-7.0) Baso % (Auto) (0.1-1.2) % Neut # (Auto) (1.78-5.38) K/mm3 Lymph # (Auto) (1.32-3.57) K/mm3 [place] # (Auto) (0.30-0.82) K/mm3 Eos # (Auto) (0.04-0.54) K/mm3 Baso # (Auto) (0.01-0.08) K/mm3 Sodium (136-145) mEq/L Potassium (3.5-5.1) mEq/L Chloride (98-107) mEq/L Carbon Dioxide (21-32) mEq/L Anion Gap (5-15) BUN (7-18) mg/dL Creatinine (0.7-1.3) mg/dL Est Cr Clr Drug Dosing mL/min Estimated GFR (MDRD) (>60) mL/min BUN/Creatinine Ratio (14-18) Glucose (70-99) mg/dL POC Glucose 143 H (70-99) mg/dL Lactic Acid (0.4-2.0) mmol/L Calcium (8.5-10.1) mg/dL Phosphorus (2.6-4.7) mg/dL Magnesium (1.8-2.4) mg/dL Total Bilirubin (0.2-1.0) mg/dL AST (15-37) U/L ALT (16-63) U/L Alkaline Phosphatase (46-116) U/L C-Reactive Protein (<1.0) mg/dL Total Protein (6.4-8.2) g/dl Albumin (3.4-5.0) g/dl Globulin gm/dL Albumin/Globulin Ratio (1-2) Result Diagrams: 07/26/21 06:48 07/26/21 06:48 Sepsis Event Note - Evaluation Sepsis Screening Result: Severe Sepsis Risk - Focused Exam Vital Signs: Vital Signs Temp Pulse Resp BP BP Pulse Ox Pulse Ox 07/26/21 13:42 91 L 07/26/21 12:00 32 H 144/73 H 07/26/21 11:00 35 H 88 L 07/26/21 10:20 91 L 07/26/21 10:00 26 H 90 L 07/26/21 09:00 30 H 93 L 07/26/21 08:05 134/78 07/26/21 08:03 97.6 F 28 H 134/78 93 L 07/26/21 08:02 77 30 H 134/78 92 L 07/26/21 08:00 29 H 88 L 07/26/21 07:00 25 H 90 L 07/26/21 06:00 29 H 94 L - Problem List & Annotations (1) Pneumonia due to COVID-19 virus SNOMED Code(s): 107726875913477555 Code(s): U07.1 - COVID-19; J12.82 - PNEUMONIA DUE TO CORONAVIRUS DISEASE 2018 Status: Acute Current Visit: Yes (2) Diabetes type 2, controlled SNOMED Code(s): 60581445, 785809459 Code(s): E11.9 - TYPE 2 DIABETES MELLITUS WITHOUT COMPLICATIONS Status: A cute Current Visit: Yes (3) HTN (hypertension) SNOMED Code(s): 71751921 Code(s): I10 - ESSENTIAL (PRIMARY) HYPERTENSION Status: Acute Current Visit: Yes - Problem List Review Problem List Initiated/Reviewed/Updated: Yes - My Orders Last 24 Hours: My Active Orders 07/26/21 04:00 Vancomycin 1 gm Vancomycin 500 mg Sodium Chloride 0.9% [Normal Saline] 500 ml IV Q18H 07/26/21 15:00 Dextrose 5%-0.9% NaCl [Dextrose 5%-Normal Saline] 1,000 ml IV ASDIRECTED 07/26/21 21:00 VANCOMYCIN TROUGH [CHEM] Timed 07/27/21 05:11 C-REACTIVE PROTEIN [CHEM] AM CBC WITH AUTO DIFF [HEME] AM CMP [COMPREHENSIVE METABOLIC PN,CMP] [CHEM] AM MAGNESIUM [CHEM] AM PHOSPHORUS [CHEM] AM 07/28/21 09:00 Cefepime [Maxipime in D5W 2 GM/50 ML] 2 gm Sodium Chloride 0.9% [Normal [place] ine] 50 ml IV Q12H - Plan Plan:: 66-year-old diabetic with COVID-19 presented to the emergency room with worsening shortness of breath. Acute hypoxemic respiratory failure due to COVID 19 pneumonia -deteriorated Possible new onset PE. D-dimer increased from 0.5 to 5, now 4.3. Patient is not stable enough to get CTA at this time and will not change care -CRP increased from 7->22->17.4->14.5 -Lovenox 1 mg/kg every 12 hours for therapeutic dosing. -Alternate high flow nasal cannula and BiPAP secondary to increased respiratory rate and work of breathing. -Continue with supportive care in the ICU. -Patient continues to have very severe hypoxemia with minimal movement. Very serious condition -Antibiotics switched to vancomycin, cefepime, and Levaquin yesterday. He has had an improvement in his white count and CRP. Pneumonia due to COVID-19 -Hypoxemia requiring BiPAP -Continue dexamethasone, and baricitinib -Although patient is afebrile, he has had worsening episodes of hypoxemia, significant increase in his white blood cell count with toxic granulations, slight increase in procalcitonin, increase in his C-reactive protein. -Switched to treat healthcare associated pneumonia with vancomycin, cefepime, and Levaquin. Patient has a history of levofloxacin allergy, but it is remote and does not sound like anaphylactic reaction. He states he was ill and felt lightheaded and disoriented. Even dizzy. He denies any shortness of breath, swelling of the throat, or any anaphylactic type reaction. I counseled the patient that I recommended adding Levaquin to his regimen. Patient has not had any adverse reaction to Levaquin after 2 doses Acute kidney injury on chronic kidney injury. -Deteriorated -Review of old records suggest baseline creatinine of 1.4 and estimated GFR of 51. -Good oral intake -Possibly deteriorated secondary to sepsis -Lactic acid 2.1 -Initial GFR 47, creatinine 1.6 -Creatinine up to 1.9 and GFR of 36 -Renally adjust medications Type 2 diabetes with diabetic nephropathy -hemoglobin A1c 5.8 -Continue home meds -Fingerstick blood sugar before every meal and at bedtime -Sliding scale insulin Transaminitisimproved -AST 53 ALT 141 likely secondary to remdesivir and COVID-19. Hypertension, gout, hypothyroid, hyperlipidemia -Continue home meds -TSH 1.22 Obesity will need lifestyle modification changes. VTE prophylaxis with Lovenox CODE STATUS: Full code Prognosis remains guarded.
[2021-07-26] MEDS ORDERED: Vancomycin 1.75 GM in Sodium Chloride 0.9% 500 ML IV SCH (23:00)
[2021-07-27] MEDS: Albuterol/Ipratropium 3.0-0.5 MG/3 ML Neb Soln NEB PRN ×2 (01:39→06:18)
[2021-07-27] MEDS: Insulin Lispro 100 UNIT/ML 10 ML Vial SUBCUT SCH ×3 (07:42→18:17)
[2021-07-27] MEDS ORDERED: Propofol 200 MG/20 ML SDV ONE (09:00)
[2021-07-27] MEDS ORDERED: fentaNYL 100 MCG/2 ML SDV ONE ×2 (09:00)
[2021-07-27] MEDS ORDERED: Rocuronium 50 MG/5 ML Vial ONE ×2 (09:00)
[2021-07-27] MEDS ORDERED: propofoL 100 ML IV SCH (09:00)
[2021-07-27] MEDS ORDERED: Midazolam 1 MG/ML 5 ML SDV ONE (09:00)
--- NOTE | 2021-07-27 09:24 | PCM.SN.2 ---
- Free Text/Narrative Note: 08:30 called to ICU room 24 for emergency intubation. Visit with patient he agreed to intubation. VSS Fentanyl 2ml, versed 5 ml, propofol 200ml, zemuron 50mg 8.5 OETT placed at 24cm at the teeth bilateral breath sounds positive end title CO2 VSS out of room at 09:24 Report to RN. Time Documentation
[2021-07-27] MEDS: Rosuvastatin 10 MG Tab PO SCH ×2 (10:08→10:44)
[2021-07-27] MEDS: Pantoprazole 40 MG Tab.CR PO SCH (10:08)
[2021-07-27] MEDS: Levothyroxine 125 MCG Tab PO SCH (10:08)
[2021-07-27] MEDS: Losartan 50 MG Tab PO SCH ×2 (10:08→10:44)
[2021-07-27] MEDS: Diltiazem 120 MG Cap.CD PO SCH ×2 (10:10→10:45)
[2021-07-27] MEDS ORDERED: Sodium Chloride 0.9% 1,000 ML IV SCH ×2 (10:30→13:00)
--- NOTE | 2021-07-27 10:30 | CR ---
Chest: Frontal view of the chest was obtained as well as additional AP view centered to the diaphragms. Comparison: Prior chest x-ray of 07/25/21. Heart size and mediastinum are within normal limits. Endotracheal tube is seen which lies slightly below the upper level of the clavicles. Nasogastric tube is seen with tip lying within the stomach. Stable calcified cyst is seen within the left upper abdomen. Diffuse increased density is seen within both sides of the chest, worse on the left side which is increased from prior exam. Impression: 1. Endotracheal tube with tip lying slightly below the upper level of the clavicles. 2. Tip of nasogastric tube within the stomach. 3. Increasing density within both lungs, worse on the left side. Please correlate if this represents diffuse pneumonia with prominent consolidation on the left side or whether this represents asymmetric pulmonary edema. Diagnostic code #3
[2021-07-27] MEDS: Cefepime 2 GM in Premix Bag 1 BAG IV SCH (10:42)
[2021-07-27] MEDS: Levofloxacin/Dextrose 5%-Water 750 MG in Premix Bag 1 BAG IV SCH (10:42)
[2021-07-27] MEDS: guaiFENesin 600 MG Tab.ER PO SCH (10:45)
[2021-07-27] MEDS: Allopurinol 100 MG Tab PO SCH (10:45)
[2021-07-27] MEDS: Empagliflozin 25 MG Tab PO SCH ×2 (10:45→12:48)
[2021-07-27] MEDS: Dexamethasone 10 MG/ML SDV IVPUSH SCH (10:46)
[2021-07-27] MEDS: Enoxaparin 100 MG/1 ML Syringe SUBCUT SCH (10:46)
[2021-07-27] MEDS: Latanoprost 0.005% Ophth Soln 2.5 ML Bottle EYERT SCH (10:46)
[2021-07-27] MEDS ORDERED: Pantoprazole 40 MG Vial IV SCH (11:00)
[2021-07-27] MEDS: fentaNYL 2500 MCG in Normal Saline 250 ML IV SCH ×2 (11:20→16:13)
[2021-07-27 12:23] VITALS: PULSE 112
[2021-07-27] MEDS ORDERED: Metoprolol Tartrate 25 MG Tab PO SCH (13:00)
[2021-07-27] MEDS ORDERED: Norepinephrine 4 MG/4 ML SDV ONE (13:33)
[2021-07-27] MEDS ORDERED: Dextrose 5% in Water 250 ML ONE (13:35)
[2021-07-27] MEDS ORDERED: Aspirin 81 MG Tab.Chew PO ONE (13:43)
[2021-07-27] MEDS ORDERED: Norepinephrine 4 MG in Dextrose 5% in Water 246 ML IV SCH ×2 (13:45)
--- NOTE | 2021-07-27 15:36 | PCM.DCSUM1 ---
Discharge Summary - Hospital Course Free Text/Narrative:: 66-year-old diabetic with COVID-19 presented to the emergency room with worsening shortness of breath. Acute hypoxemic respiratory failure due to COVID 19 pneumonia -deteriorated Possible new onset PE. D-dimer increased from 0.5 to 5, now 4.3. Patient is n ot stable enough to get CTA at this time and will not change care -CRP increased from 7->22->17.4->14.5 ->8.1 -Lovenox 1 mg/kg every 12 hours for therapeutic dosing. -Continue with supportive care in the ICU. -Antibiotics switched to vancomycin, cefepime, and Levaquin 2 days ago. He has had an improvement in his white count and CRP. -Patient's oxygen saturation cannot be maintained 90% and above even on BiPAP. Discussed with (POA) and pt who agreed to be intubated. -Pt was intubated. -Precedex drip and fentanyl drip Hypotension PEEP 7, Peak pressure 22. EKG -sinus rhythm, incomplete left bundle branch block, low voltage. This EKG was reviewed by respiratory physician Dr. Machuca in [place] who believed that patient does not have any KS. BNP LA Normal saline bolus 250ml x 2 and 500ml x 1 continue IVF 100ml/hr Norepinephrin drip to maintain MAP 65, vasopressin drip (2nd line) Pneumonia due to COVID-19 -Positive Covid 19 test on 07/15/21 -Hypoxemia, on ventilator -Continue dexamethasone, and baricitinib -Switched to treat healthcare associated pneumonia with vancomycin, cefepime, and Levaquin. Patient has a history of levofloxacin allergy, but it is remote and does not sound like anaphylactic reaction. He states he was ill and felt lightheaded and disoriented. Even dizzy. He denies any shortness of breath, swelling of the throat, or any anaphylactic type reaction. I counseled the patient that I recommended adding Levaquin to his regimen. Patient has not had any adverse reaction to Levaquin so far Acute kidney injury on chronic kidney injury. -Deteriorated -Review of old records suggest baseline creatinine of 1.4 and estimated GFR of 51. 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 VTE prophylaxis with Lovenox CODE STATUS: Full code Patient is on ventilator and has a hypotension on vasopressors. Patient's c reatinine came up to 2.1 today. At this moment, I believe patient needs ICU bed and nephrology and ID. I contacted the hospitals in [place] but they do not have any beds available. Spoke to automated equipment engineer technician Dr. Horne in [place] with help from [place]. Dr. Horne graciously accepted this patient. Family ( and nephrew) agreed with the the plan. Patient will be transferred to [place] by air. HPI Initial Comments: 66-year-old diabetic male presents to the emergency room last night with increasing shortness of breath. He was seen 4 days ago at the clinic and given steroids and an inhaler. Patient progressively worsened and presented today. He does complain of moderate nonproductive cough. Low-grade fevers and shortness of breath. When he arrived at the emergency department his oxygen saturations were 75%. They placed him on 6 L nasal cannula and his saturation only went up to 87%. Patient was then placed on high flow nasal cannula, given dexamethasone, and baricitinib. Initial lab work showed a WBC of 11.3 with a C- reactive protein of 5.7. Estimated GFR is 41 with a creatinine of 1.7 and BUN of 25. proBNP 130. AST elevated 116 ALT 170, total bilirubin normal 0.5, albumin low 3.2. Initial ABG on 6 L showed pure hypoxemic respiratory failure with PO2 of 43. Diagnosis: Stroke: No - Discharge Data Discharge Date: 07/27/21 Discharge Disposition: DC/Tfer to Acute Hospital 02 Condition: Critical - Referral to Home Health Primary Care Physician: Chad Plata MD - Discharge Plan *PRESCRIPTION DRUG MONITORING PROGRAM REVIEWED*: No *COPY OF PRESCRIPTION DRUG MONITORING REPORT IN PATIENT JUDY: No Home Medications: Home Meds Omeprazole [Prilosec] 40 mg PO DAILY 01/25/15 [History] Albuterol Sulfate [Albuterol Sulfate HFA] 1 - 2 puff INH Q4HR PRN 07/19/21 [History] Benzonatate [Tessalon Perle] 100 - 200 mg PO Q8H PRN 07/19/21 [History] Canagliflozin [Invokana] 300 mg PO DAILY 07/19/21 [History] Levothyroxine Sodium [Levo-T] 125 mcg PO DAILY 07/19/21 [History] Rosuvastatin Calcium 20 mg PO DAILY 07/19/21 [History] Telmisartan 40 mg PO DAILY 07/19/21 [History] Travoprost 1 drop EYERT DAILY 07/19/21 [History] allopurinoL [Zyloprim] 50 mg PO DAILY 07/19/21 [History] dilTIAZem HCL [Cartia Xt] 120 mg PO DAILY 07/19/21 [History] methylPREDNISolone [Medrol Dose Pack] 4 mg PO ASDIRECTED 07/19/21 [History] Patient Handouts: COVID-19 Frequently Asked Questions, 10 Things You Can Do to Manage Your COVID-19 Symptoms at Home - CDC (05/08/2020), Type 2 Diabetes Mellitus, Self-Care, Adult, [id number], Sepsis, Self Care, Adult Forms: ED Department Discharge Referrals: Chad Ordonez MD [Primary Care Provider] - - Discharge Summary/Plan Comment DC Time >30 min.: Yes Total # of Minutes for Discharge Time: 90mins - General Info Date of Service: 07/27/21 Admission Dx/Problem (Free Text: Admission Diagnosis/Problem Admission Diagnosis/Problem Hypoxia Subjective Update: Pt is on ventilator and sedation by precedex drip - Review of Systems Systems Review Comment: unable to complete because patient is on ventilator and sedation - Patient Data Vitals - Most Recent: Last Vital Signs Temp 36.8 C 07/27/21 04:00 Pulse 112 H 07/27/21 12:23 Resp 13 07/27/21 14:45 BP 86/60 L 07/27/21 14:45 Pulse Ox 86 L 07/27/21 14:45 Weight - Most Recent: 105.233 kg I&O - Last 24 hours: Intake & Output 07/27/21 07/27/21 07/27/21 06:59 14:59 22:59 Intake Total 1948 Output Total 8080 Balance 248 Lab Results - Last 24 hrs: Laboratory Results - last 24 hr 07/26/21 07/26/21 07/26/21 Range/Units 17:22 20:20 21:24 WBC (4.23-9.07) K/mm3 RBC (4.63-6.08) M/mm3 Hgb (13.7-17.5) gm/dl Hct (40.1-51.0) % MCV (79.0-92.2) fl MCH (25.7-32.2) pg MCHC (32.2-35.5) g/dl RDW Std Deviation (35.1-43.9) fL Plt Count (163-337) K/mm3 MPV (9.4-12.3) fl Neut % (Auto) (34.0-67.9) % Lymph % (Auto) (21.8-53.1) % Harvey % (Auto) (5.3-12.2) % Eos % (Auto) (0.8-7.0) Baso % (Auto) (0.1-1.2) % Neut # (Auto) (1.78-5.38) K/mm3 Lymph # (Auto) (1.32-3.57) K/mm3 Harvey # (Auto) (0.30-0.82) K/mm3 Eos # (Auto) (0.04-0.54) K/mm3 Baso # (Auto) (0.01-0.08) K/mm3 Manual Slide Review VBG pH (7.30-7.40) VBG pCO2 (41-51) mmHg VBG pO2 (40-80) mmHG VBG HCO3 (22-26) meq/L VBG O2 Saturation VBG Base Excess (-4.0-2.0) O2 Delivery Device Sodium (136-145) mEq/L Potassium (3.5-5.1) mEq/L Chloride (98-107) mEq/L Carbon Dioxide (21-32) mEq/L Anion Gap (5-15) BUN (7-18) mg/dL Creatinine (0.7-1.3) mg/dL Est Cr Clr Drug Dosing mL/min Estimated GFR (MDRD) (>60) mL/min BUN/Creatinine Ratio (14-18) Glucose (70-99) mg/dL POC Glucose 143 H 134 H (70-99) mg/dL Calcium (8.5-10.1) mg/dL Phosphorus (2.6-4.7) mg/dL Magnesium (1.8-2.4) mg/dL Total Bilirubin (0.2-1.0) mg/dL AST (15-37) U/L ALT (16-63) U/L Alkaline Phosphatase (46-116) U/L Troponin I (0.00-0.056) ng/mL C-Reactive Protein (<1.0) mg/dL NT-Pro-B Natriuret Pep (0-125) pg/mL Total Protein (6.4-8.2) g/dl Albumin (3.4-5.0) g/dl Globulin gm/dL Albumin/Globulin Ratio (1-2) Vancomycin Trough 13.1 (10.0-20.0) 07/27/21 07/27/21 07/27/21 Range/Units 06:04 06:43 06:43 WBC 21.27 H (4.23-9.07) K/mm3 RBC 4.74 (4.63-6.08) M/mm3 Hgb 14.7 (13.7-17.5) gm/dl Hct 44.0 (40.1-51.0) % MCV 92.8 H (79.0-92.2) fl MCH 31.0 (25.7-32.2) pg MCHC 33.4 (32.2-35.5) g/dl RDW Std Deviation 44.7 H (35.1-43.9) fL Plt Count 372 H (163-337) K/mm3 MPV 9.2 L (9.4-12.3) fl Neut % (Auto) 93.0 H (34.0-67.9) % Lymph % (Auto) 2.4 L (21.8-53.1) % Harvey % (Auto) 3.6 L (5.3-12.2) % Eos % (Auto) 0.2 L (0.8-7.0) Baso % (Auto) 0.0 L (0.1-1.2) % Neut # (Auto) 19.78 H (1.78-5.38) K/mm3 Lymph # (Auto) 0.50 L (1.32-3.57) K/mm3 Harvey # (Auto) 0.76 (0.30-0.82) K/mm3 Eos # (Auto) 0.05 (0.04-0.54) K/mm3 Baso # (Auto) 0.01 (0.01-0.08) K/mm3 Manual Slide Review Not Reportable VBG pH (7.30-7.40) VBG pCO2 (41-51) mmHg VBG pO2 (40-80) mmHG VBG HCO3 (22-26) meq/L VBG O2 Saturation VBG Base Excess (-4.0-2.0) O2 Delivery Device Sodium 136 (136-145) mEq/L Potassium 4.5 (3.5-5.1) mEq/L Chloride 104 (98-107) mEq/L Carbon Dioxide 18 L (21-32) mEq/L Anion Gap 18.5 H (5-15) BUN 50 H (7-18) mg/dL Creatinine 2.1 H (0.7-1.3) mg/dL Est Cr Clr Drug Dosing 38.49 mL/min Estimated GFR (MDRD) 32 (>60) mL/min BUN/Creatinine Ratio 23.8 H (14-18) Glucose 89 (70-99) mg/dL POC Glucose 84 (70-99) mg/dL Calcium 9.4 (8.5-10.1) mg/dL Phosphorus 3.0 (2.6-4.7) mg/dL Magnesium 2.4 (1.8-2.4) mg/dL Total Bilirubin 0.6 (0.2-1.0) mg/dL AST 75 H (15-37) U/L ALT 198 H (16-63) U/L Alkaline Phosphatase 117 H (46-116) U/L Troponin I (0.00-0.056) ng/mL C-Reactive Protein 8.1 H* (<1.0) mg/dL NT-Pro-B Natriuret Pep (0-125) pg/mL Total Protein 7.5 (6.4-8.2) g/dl Albumin 2.5 L (3.4-5.0) g/dl Globulin 5.0 gm/dL Albumin/Globulin Ratio 0.5 L (1-2) Vancomycin Trough (10.0-20.0) 07/27/21 07/27/21 07/27/21 Range/Units 11:07 13:00 13:50 WBC (4.23-9.07) K/mm3 RBC (4.63-6.08) M/mm3 Hgb (13.7-17.5) gm/dl Hct (40.1-51.0) % MCV (79.0-92.2) fl MCH (25.7-32.2) pg MCHC (32.2-35.5) g/dl RDW Std Deviation (35.1-43.9) fL Plt Count (163-337) K/mm3 MPV (9.4-12.3) fl Neut % (Auto) (34.0-67.9) % Lymph % (Auto) (21.8-53.1) % Harvey % (Auto) (5.3-12.2) % Eos % (Auto) (0.8-7.0) Baso % (Auto) (0.1-1.2) % Neut # (Auto) (1.78-5.38) K/mm3 Lymph # (Auto) (1.32-3.57) K/mm3 Harvey # (Auto) (0.30-0.82) K/mm3 Eos # (Auto) (0.04-0.54) K/mm3 Baso # (Auto) (0.01-0.08) K/mm3 Manual Slide Review VBG pH 7.04 L (7.30-7.40) VBG pCO2 82.0 H (41-51) mmHg VBG pO2 119.0 H (40-80) mmHG VBG HCO3 20.9 L (22-26) meq/L VBG O2 Saturation 96.1 VBG Base Excess -11.9 L (-4.0-2.0) O2 Delivery Device Ventilator Sodium (136-145) mEq/L Potassium (3.5-5.1) mEq/L Chloride (98-107) mEq/L Carbon Dioxide (21-32) mEq/L Anion Gap (5-15) BUN (7-18) mg/dL Creatinine (0.7-1.3) mg/dL Est Cr Clr Drug Dosing mL/min Estimated GFR (MDRD) (>60) mL/min BUN/Creatinine Ratio (14-18) Glucose (70-99) mg/dL POC Glucose 105 H (70-99) mg/dL Calcium (8.5-10.1) mg/dL Phosphorus (2.6-4.7) mg/dL Magnesium (1.8-2.4) mg/dL Total Bilirubin (0.2-1.0) mg/dL AST (15-37) U/L ALT (16-63) U/L Alkaline Phosphatase (46-116) U/L Troponin I < 0.017 (0.00-0.056) ng/mL C-Reactive Protein (<1.0) mg/dL NT-Pro-B Natriuret Pep (0-125) pg/mL Total Protein (6.4-8.2) g/dl Albumin (3.4-5.0) g/dl Globulin gm/dL Albumin/Globulin Ratio (1-2) Vancomycin Trough (10.0-20.0) 07/27/21 Range/Units 13:50 WBC (4.23-9.07) K/mm3 RBC (4.63-6.08) M/mm3 Hgb (13.7-17.5) gm/dl Hct (40.1-51.0) % MCV (79.0-92.2) fl MCH (25.7-32.2) pg MCHC (32.2-35.5) g/dl RDW Std Deviation (35.1-43.9) fL Plt Count (163-337) K/mm3 MPV (9.4-12.3) fl Neut % (Auto) (34.0-67.9) % Lymph % (Auto) (21.8-53.1) % Harvey % (Auto) (5.3-12.2) % Eos % (Auto) (0.8-7.0) Baso % (Auto) (0.1-1.2) % Neut # (Auto) (1.78-5.38) K/mm3 Lymph # (Auto) (1.32-3.57) K/mm3 Harvey # (Auto) (0.30-0.82) K/mm3 Eos # (Auto) (0.04-0.54) K/mm3 Baso # (Auto) (0.01-0.08) K/mm3 Manual Slide Review VBG pH (7.30-7.40) VBG pCO2 (41-51) mmHg VBG pO2 (40-80) mmHG VBG HCO3 (22-26) meq/L VBG O2 Saturation VBG Base Excess (-4.0-2.0) O2 Delivery Device Sodium (136-145) mEq/L Potassium (3.5-5.1) mEq/L Chloride (98-107) mEq/L Carbon Dioxide (21-32) mEq/L Anion Gap (5-15) BUN (7-18) mg/dL Creatinine (0.7-1.3) mg/dL Est Cr Clr Drug Dosing mL/min Estimated GFR (MDRD) (>60) mL/min BUN/Creatinine Ratio (14-18) Glucose (70-99) mg/dL POC Glucose (70-99) mg/dL Calcium (8.5-10.1) mg/dL Phosphorus (2.6-4.7) mg/dL Magnesium (1.8-2.4) mg/dL Total Bilirubin (0.2-1.0) mg/dL AST (15-37) U/L ALT (16-63) U/L Alkaline Phosphatase (46-116) U/L Troponin I (0.00-0.056) ng/mL C-Reactive Protein (<1.0) mg/dL NT-Pro-B Natriuret Pep 485 H (0-125) pg/mL Total Protein (6.4-8.2) g/dl Albumin (3.4-5.0) g/dl Globulin gm/dL Albumin/Globulin Ratio (1-2) Vancomycin Trough (10.0-20.0) JOE Results - Last 24 hrs: Microbiology 07/25/21 10:40 Blood Culture - Preliminary Blood - Venous - Lab Draw 07/25/21 10:30 Blood Culture - Preliminary Blood - Venous Med Orders - Current: Current Medications Acetaminophen (Acetaminophen 325 Mg Tab) 650 mg PO Q4H PRN PRN Reason: Fever Greater Than 101 Last Admin: 07/24/21 06:21 Dose: 650 mg Documented by: Albuterol (Albuterol 6.7 Gm Inhaler) 1 - 2 gm INH Q4H PRN PRN Reason: Shortness of Breath Last Admin: 07/25/21 03:54 Dose: 2 puff Documented by: Albuterol/Ipratropium (Albuterol/Ipratropium 3.0-0.5 Mg/3 Ml Neb Soln) 3 ml NEB Q4HRRT PRN PRN Reason: Shortness of Breath Last Admin: 07/27/21 06:18 Dose: 3 ml Documented by: Allopurinol (Allopurinol 100 Mg Tab) 50 mg PO DAILY [place] Last Admin: 07/27/21 10:45 Dose: 50 mg Documented by: Atorvastatin Calcium (Atorvastatin 40 Mg Tab) 40 mg PO BEDTIME [place] Benzonatate (Benzonatate 100 Mg Cap) 100 - 200 mg PO Q8H PRN PRN Reason: Cough Last Admin: 07/20/21 20:27 Dose: 200 mg Documented by: Enoxaparin Sodium (Enoxaparin 100 Mg/1 Ml Syringe) 100 mg SUBCUT Q12H [place] Last Admin: 07/27/21 10:46 Dose: 100 mg Documented by: Cefepime HCl 2 gm/ Premix 50 mls @ 100 mls/hr IV Q12H [place] Stop: 07/27/21 23:00 Last Admin: 07/27/21 10:42 Dose: 100 mls/hr Documented by: Levofloxacin/Dextrose 750 mg/ (Premix) 150 mls @ 100 mls/hr IV Q48H [place] Last Admin: 07/27/21 10:42 Dose: 100 mls/hr Documented by: Cefepime HCl 2 gm/ Sodium (Chloride) 100 mls @ 200 mls/hr IV Q12H [place] Vancomycin HCl 1 gm/Vancomycin HCl 500 mg/ Sodium Chloride 500 mls @ 250 mls/hr IV Q18H [place] Fentanyl 2,500 mcg/ Sodium (Chloride) 250 mls @ 10.523 mls/hr IV TITRATE [place]; Protocol Last Titration: 07/27/21 13:25 Dose: 3 mcg/kg/hr, 31.57 mls/hr Documented by: dexmedeTOMIDine in dextrose 5% (Dexmedetomidine In D5w 400 Mcg/100 Ml) 100 mls @ 5.262 mls/hr IV TITRATE [place]; Protocol Last Titration: 07/27/21 14:50 Dose: 0.3 mcg/kg/hr, 7.892 mls/hr Documented by: Sodium Chloride (Normal Saline) 1,000 mls @ 65 mls/hr IV ASDIRECTED [facility] Last Admin: 07/27/21 10:10 Dose: 65 mls/hr Documented by: Norepinephrine Bitartrate 4 mg (/ Dextrose/Water) 250 mls @ 7.5 mls/hr IV TITRATE [facility]; Protocol Last Titration: 07/27/21 14:10 Dose: 10 mcg/min, 37.5 mls/hr Documented by: Insulin Human Lispro (Insulin Lispro 100 Unit/Ml 10 Ml Vial) 0 unit SUBCUT QIDACANDBED [facility]; Protocol Last Admin: 07/27/21 11:15 Dose: Not Given Documented by: Latanoprost (Latanoprost 0.005% Ophth Soln 2.5 Ml Bottle) 0 ml EYERT DAILY [facility] Last Admin: 07/27/21 10:46 Dose: 1 drop Documented by: Levothyroxine Sodium (Levothyroxine 125 Mcg Tab) 125 mcg PO DAILY@0600 [facility] Last Admin: 07/27/21 10:08 Dose: Not Given Documented by: Lidocaine (Lidocaine 4% 1 Each Patch) 1 each TOP Q24H [facility] Last Admin: 07/26/21 16:30 Dose: 1 each Documented by: Lorazepam (Lorazepam 1 Mg Tab) 1 mg PO Q4H PRN PRN Reason: Anxiety Last Admin: 07/26/21 20:28 Dose: 1 mg Documented by: Losartan Potassium (Losartan 50 Mg Tab) 50 mg PO DAILY [facility] Last Admin: 07/27/21 10:08 Dose: Not Given Documented by: Metoprolol Tartrate (Metoprolol Tartrate 25 Mg Tab) 25 mg PO BID [facility] Last Admin: 07/27/21 12:23 Dose: 25 mg Documented by: Miscellaneous Information (Remove Patch) 0 ea TRDERM Q24H [facility] Last Admin: 07/27/21 04:00 Dose: Not Given Documented by: Oxycodone HCl (Oxycodone 5 Mg Tab) 5 mg PO Q4H PRN PRN Reason: back pain Pantoprazole Sodium (Pantoprazole 40 Mg Vial) 40 mg IV DAILY [facility] Last Admin: 07/27/21 10:51 Dose: 40 mg Documented by: Rosuvastatin Calcium (Rosuvastatin 10 Mg Tab) 20 mg PO DAILY [facility] Last Admin: 07/27/21 10:08 Dose: Not Given Documented by: Sodium Chloride (Sodium Chloride 0.9% 10 Ml Syringe) 10 ml FLUSH ASDIRECTED PRN PRN Reason: Keep Vein Open Last Admin: 07/18/21 20:36 Dose: 10 ml Documented by: Tramadol HCl (Tramadol 50 Mg Tab) 50 - 100 mg PO Q6H PRN PRN Reason: pain Last Admin: 07/23/21 01:57 Dose: 100 mg Documented by: Vancomycin HCl (Pharmacy To Dose - Vancomycin) 0 dose .XX ASDIRECTED PRN PRN Reason: RX TO DOSE VANCO Discontinued Medications Aspirin (Aspirin 81 Mg Tab.Chew) 324 mg PO ONETIME ONE Stop: 07/27/21 13:44 Last Admin: 07/27/21 13:59 Dose: 324 mg Documented by: Azithromycin (Azithromycin 250 Mg Tab) 500 mg PO DAILY [facility] Stop: 07/25/21 09:46 Last Admin: 07/24/21 08:44 Dose: 500 mg Documented by: Dexamethasone (Dexamethasone 10 Mg/Ml Sdv) 6 mg IVPUSH ONETIME ONE Stop: 07/18/21 21:41 Last Admin: 07/18/21 22:01 Dose: 6 mg Documented by: Dexamethasone (Dexamethasone 10 Mg/Ml Sdv) 6 mg IVPUSH DAILY [facility] Stop: 07/27/21 09:01 Last Admin: 07/27/21 10:46 Dose: 6 mg Documented by: Diltiazem HCl (Diltiazem 120 Mg Cap.Cd) 120 mg PO DAILY [facility] Last Admin: 07/27/21 10:10 Dose: Not Given Documented by: Enoxaparin Sodium (Enoxaparin 40 Mg/0.4 Ml Syringe) 40 mg SUBCUT DAILY [facility] Last Admin: 07/22/21 10:19 Dose: Not Given Documented by: Guaifenesin (Guaifenesin 600 Mg Tab.Er) 600 mg PO BID [facility] Last Admin: 07/27/21 10:45 Dose: Not Given Documented by: Ceftriaxone Sodium 2 gm/ (Sodium Chloride) 100 mls @ 200 mls/hr IV ONETIME ONE Stop: 07/18/21 22:09 Last Admin: 07/18/21 22:12 Dose: 200 mls/hr Documented by: Remdesivir 100 mg/ Sodium (Chloride) 100 mls @ 100 mls/hr IV Q24H [facility] Stop: 07/23/21 09:29 Remdesivir 200 mg/ Sodium (Chloride) 250 mls @ 250 mls/hr IV ONETIME ONE Stop: 07/20/21 09:40 Last Admin: 07/20/21 10:25 Dose: 250 mls/hr Documented by: Remdesivir 100 mg/ Sodium (Chloride) 100 mls @ 100 mls/hr IV Q24H [facility] Stop: 07/24/21 09:59 Last Admin: 07/22/21 09:23 Dose: 100 mls/hr Documented by: Ceftriaxone Sodium 2 gm/ (Sodium Chloride) 100 mls @ 200 mls/hr IV Q24H [facility] Last Admin: 07/24/21 12:47 Dose: 200 mls/hr Documented by: Aztreonam 1 gm/ Sodium (Chloride) 50 mls @ 100 mls/hr IV Q8HR [facility] Dextrose/Sodium Chloride (Dextrose 5%-Normal Saline) 1,000 mls @ 100 mls/hr IV ASDIRECTED [facility] Last Infusion: 07/26/21 14:51 Dose: 50 mls/hr Documented by: Vancomycin HCl 2 gm/ Sodium (Chloride) 500 mls @ 250 mls/hr IV ONETIME ONE Stop: 07/25/21 11:59 Last Admin: 07/25/21 09:26 Dose: 250 mls/hr Documented by: Vancomycin HCl 1 gm/Vancomycin HCl 500 mg/ Sodium Chloride 500 mls @ 250 mls/hr IV Q18H [facility] Last Admin: 07/26/21 22:11 Dose: Not Given Documented by: Dextrose/Sodium Chloride (Dextrose 5%-Normal Saline) 1,000 mls @ 50 mls/hr IV ASDIRECTED [facility] Vancomycin HCl 1.75 gm/ Sodium (Chloride) 500 mls @ 250 mls/hr IV Q18H [facility] Last Admin: 07/26/21 23:06 Dose: 250 mls/hr Documented by: Propofol (Diprivan 100 Ml) 100 mls @ 3.157 mls/hr IV TITRATE [facility]; Protocol Last Admin: 07/27/21 09:10 Dose: 5 mcg/kg/min, 3.157 mls/hr Documented by: Sodium Chloride (Normal Saline) 1,000 mls @ 65 mls/hr IV ASDIRECTED [facility] Dextrose/Water (Dextrose 5% In Water) Confirm Administered Dose 250 mls @ as directed .ROUTE .STK-MED ONE Stop: 07/27/21 13:36 Lidocaine (Lidocaine 4% 1 Each Patch) 1 each TOP Q24H [facility] Last Admin: 07/23/21 16:37 Dose: 1 each Documented by: Norepinephrine Bitartrate (Norepinephrine 4 Mg/4 Ml Sdv) Confirm Administered Dose 4 mg .ROUTE .STK-MED ONE Stop: 07/27/21 13:34 Pantoprazole Sodium (Pantoprazole 40 Mg Tab.Cr) 40 mg PO ACBREAKFAST [facility] Last Admin: 07/27/21 10:08 Dose: Not Given Documented by: Vancomycin HCl (Pharmacy To Dose - Vancomycin) 0 dose .XX ASDIRECTED PRN PRN Reason: RX TO DOSE VANCO - Exam General: Reports: Other (He is on ventilator and sedation) Neck: Reports: No JVD. Denies: Thyromegaly Lungs: Reports: Decreased Breath Sounds, Rhonchi Cardiovascular: Reports: No Murmurs, Irregular Rhythm GI/Abdominal Exam: Normal Bowel Sounds, Soft, No Organomegaly, No Distention Extremities: Normal Inspection Skin: Reports: Warm, Dry, Intact Neurological: Reports: Other (Unable to complete due to sedation) Psy/Mental Status: Reports: Other (Unable to complete due to sedation)
[2021-07-27] MEDS: Lidocaine 4% 1 each Patch TOP SCH (16:22)
[2021-07-27] MEDS ORDERED: Vancomycin 1 GM, Vancomycin 500 MG in Sodium Chloride 0.9% 500 ML IV SCH (18:00)
[2021-07-27 20:32] VITALS: BP 93/55
[2021-07-27] MEDS ORDERED: atorvaSTATin 40 MG Tab PO SCH (21:00)
[2021-07-28] MEDS ORDERED: Cefepime 2 GM in Sodium Chloride 0.9% 50 ML IV SCH (09:00)
== END 2021-07-27 19:50 | DRG 137 ==
LOC: JD.ED 20:04 → JD.MS 22:05 → JD.ICU 07-20 14:12
PROVIDERS: ADMIT Family Medicine; ATTEND Family Medicine
PROC: XW0DXM6 Introduction of Baricitinib into Mouth and Pharynx, External Approach, New Technology Group 6 (ICD-10-PCS; 2021-07-18)
PROC: 5A0955A Assistance with Respiratory Ventilation, Greater than 96 Consecutive Hours, High Flow/Velocity Cannula (ICD-10-PCS; 2021-07-18)
PROC: XW033E5 Introduction of Remdesivir Anti-infective into Peripheral Vein, Percutaneous Approach, New Technology Group 5 (ICD-10-PCS; principal; 2021-07-19)
PROC: 3E0333Z Introduction of Anti-inflammatory into Peripheral Vein, Percutaneous Approach (ICD-10-PCS; 2021-07-20)
PROC: 3E0DX3Z Introduction of Anti-inflammatory into Mouth and Pharynx, External Approach (ICD-10-PCS; 2021-07-22)
PROC: 0BH17EZ Insertion of Endotracheal Airway into Trachea, Via Natural or Artificial Opening (ICD-10-PCS; 2021-07-27)
PROC: 5A1935Z Respiratory Ventilation, Less than 24 Consecutive Hours (ICD-10-PCS; 2021-07-27)
PROC: 3E033XZ Introduction of Vasopressor into Peripheral Vein, Percutaneous Approach (ICD-10-PCS; 2021-07-27)
DX: U07.1 COVID-19 (principal); J12.82 Pneumonia due to coronavirus disease 2019; N17.9 Acute kidney failure, unspecified; E11.21 Type 2 diabetes mellitus with diabetic nephropathy; R74.01 Elevation of levels of liver transaminase levels; E03.9 Hypothyroidism, unspecified; E78.5 Hyperlipidemia, unspecified; M10.9 Gout, unspecified; E66.9 Obesity, unspecified; E78.00 Pure hypercholesterolemia, unspecified; I12.9 Hypertensive chronic kidney disease with stage 1 through stage 4 chronic kidney disease, or unspecified chronic kidney disease; E11.22 Type 2 diabetes mellitus with diabetic chronic kidney disease; G47.30 Sleep apnea, unspecified; J96.01 Acute respiratory failure with hypoxia; N18.9 Chronic kidney disease, unspecified; Z88.1 Allergy status to other antibiotic agents; Z79.890 Hormone replacement therapy
CPT/HCPCS: 31500; 36415; 36600; 51702; 71045; 71045-26; 80048; 80053; 80076; 80202; 81001; 82248; 82803; 82947; 83036; 83605; 83735; 83880; 84100; 84145; 84443; 84484; 85025; 85379; 85610; 85730; 86140; 87040; 93005; 93010; 94002; 94640; 94660; 94667; 94668; 94762; 96374; 99140; 99284; 99285-25; A9270-GY; C9113; J0692; J0696; J1100; J1650; J1815-GY; J1956; J2250; J2704; J3010; J3370; J7030; J7040; J7042; J7050; J7060; J7620-GY